=== PATIENT | male | born 1955 | race Caucasian/White ===

== ENCOUNTER 2023-05-20 09:07 | Outpatient (OUT) | payer OTHER, SELFPAY ==
--- NOTE | 2023-05-20 09:16 | US_ITS ---
The [address] [address] Patient Name: JENNY RIVERA MRN: [id number] date: 1955 Sex: M Assigned Patient Location: US Current Patient Location: US Accession/Order Number: [id number] Exam Date: 05/20/2023 09:20 Report Date: 05/20/2023 09:59 At the request of: NESSA GELLER Procedure: US abdominal aortic aneurysm EXAM: US abdominal aortic aneurysm HISTORY: . screening . COMPARISON: None. TECHNIQUE: Grayscale and color imaging was performed FINDINGS: Scanning of the proximal aorta measures 1.9 x 2.1 cm, mid aorta 1.8 x 2.2 cm, and the distal aorta 1.3 x 1.6 cm. Color-flow is noted throughout the aorta. Mild atherosclerotic changes of the abdominal aorta are noted. US/US abdominal aortic aneurysm IMPRESSION: 1. No aneurysmal dilatation of the aorta. 2. Atherosclerotic changes of the abdominal aorta. Electronically authenticated by: DANNA DUPONT Date: 05/20/2023 09:59
== END 2023-05-20 09:08 | disposition home or self-care (01) ==
LOC: US 09:09
DX: Z72.0 Tobacco use (principal)
CPT/HCPCS: 76775

== ENCOUNTER 2024-10-08 15:20 | Outpatient (OUT) | payer OTHER, SELFPAY ==
--- NOTE | 2024-10-08 | CT_ITS ---
The [address] [address] Patient Name: JENNY RIVERA MRN: [id number] date: 1955 Sex: M Assigned Patient Location: CT Current Patient Location: CT Accession/Order Number: [id number] Exam Date: 10/08/2024 16:02 Report Date: 10/08/2024 16:09 At the request of: NESSA GELLER Procedure: CT head/brain wo con CT BRAIN WITHOUT CONTRAST: CLINICAL HISTORY: Fall, stuttering, personality changes COMPARISON: None TECHNIQUE: Contiguous axial unenhanced images were obtained through the brain. This CT exam was performed using one no definite acute or more following dose reduction techniques: Automated exposure control, adjustment of the mA and/or kV according to patient size, or use of iterative reconstruction technique. FINDINGS: There is no evidence of midline shift, intra or extra-axial fluid collection, hemorrhage or CT evidence acute large vascular disease stroke. Mild central involutional changes and chronic small vessel disease. Evidence of right anterior frontal stroke extending to the subinsular region likely subacute in age with increased attenuation involving the cortices likely due laminar necrosis versus petechial blood products. Evidence of remote right parietal area of cortical and subcortical stroke noted as well. Intracranial ICA calcifications. Visualized intraorbital contents appear unremarkable. Visualized paranasal sinuses are clear. The surrounding soft tissues are normal. CT/CT head/brain wo con IMPRESSION: Evidence of right anterior frontal stroke extending into the right anterior subinsular region likely due to subacute stroke. Right posterior parietal stroke possibly subacute in age as well. Cortical density right frontal lobe likely due to laminar necrosis versus minimal petechial blood products. Otherwise negative acute bleed midline shift or mass effect. Otherwise mild chronic small vessel disease and Central involutional changes. Impression dictated by: Fabrice Jones M.D. 10/08/2024 4:09 PM Dictation Location: [place] [address] Electronically authenticated by: [id number] Y Date: 10/08/2024 16:09
--- OUTSIDE RECORDS SUMMARY | 2024-10-08 15:23 | XMS_ITS | CCD ---
Author Organization [facility] CliniSyga Care Team Providers Care University Relations Recruiter Name Role Phone DR PERICO MURPHY Primary Care Unavailable DUYEN, NESSA Admitting Unavailable DUYEN, NESSA Attending Unavailable DR JULIA GAN Consulting Unavailable DUYEN, NESSA Consulting Unavailable Shane, Getachew Unavailable Shane DO Getachew A Attending Provider [phone] Duyen, BUSINESS SERVICES TECH Nessa Primary Care Provider Duyen, BUSINESS SERVICES TECH Nessa Primary Care Provider Shane DO Getachew A Attending Provider [phone] Duyen, BUSINESS SERVICES TECH Nessa Primary Care Provider [phone] Shane DO Getachew A Attending Provider Duyen, BUSINESS SERVICES TECH Nessa Attending Provider [phone] Shane, Getachew A Admitting Unavailable Duyen, Nessa Primary Care Unavailable Shane, Getachew A Attending Unavailable Duyen, Nessa Primary Care Unavailable Shane, Getachew A Attending Unavailable Shane, Getachew A Admitting Unavailable Duyen, Nessa Primary Care Unavailable Shane, Getachew A Attending Unavailable Shane, Getachew A Admitting Unavailable Dueyn, Nessa Primary Care Unavailable Shane, Getachew A Attending Unavailable Shane, Getachew A Admitting Unavailable Duyen, Nessa Primary Care Unavailable Shane, Getachew A Attending Unavailable Shane, Getachew A Admitting Unavailable Duyen, Nessa Primary Care Unavailable Shane, Getachew A Attending Unavailable Shane, Getachew A Admitting Unavailable Duyen, Nessa Primary Care Unavailable Shane, Getachew A Attending Unavailable Shane, Getachew A Admitting Unavailable Duyen, Nessa Primary Care Unavailable Duyen, Nessa Attending Unavailable Duyen, Nessa Admitting Unavailable Shane, Getachew A Admitting Unavailable Shane, Getachew A Attending Unavailable Getachew Connolly Admitting Unavailable Nessa Geller Primary Care Unavailable Getachew Connolly Attending Unavailable Getachew Connolly Admitting Unavailable Nessa Geller Primary Care Unavailable Getachew Connolly Attending Unavailable Getachew Connolly Admitting Unavailable Nessa Geller Primary Care Unavailable Getachew Connolly Attending Unavailable FERDINAND ASCENCIO Admitting Unavailable FERDINAND ASCENCIO Attending Unavailable FERDINAND ASCENCIO Referring Unavailable NESSA GELLER Primary Care Physician Allergies Allergy Classification Reported Allergen(s) Allergy Type Date of Onset Reaction(s) Facility (9 sources) Amino Acids Drug Allergy 06-20-2022 Cough [facility] (1 source) Lisinopril Drug Allergy 12-06-2022 [facility] Repository Medications Current Medications Medication Drug Class(es) Dates Sig (Normalized) Sig (Original) acetaminophen 325 mg / oxyCODONE hydrochloride 5 mg oral tablet (3 sources) Opioid Agonist Start: 12-12-2022 take 1 tablet by mouth every four hours Oxycodone-Acetami nophen (Percocet) 5-325 mg tablet Active 1 TAB PO Q4H 20 December 12, 2022 Start: 07-05-2022 take 1 tablet by jami th every six hours oxyCODONE-Acetaminophen 5-325 MG 1 table t as needed Orally every 6 hrs for 7 days OSMAR # [id number] Jun, Active atenolol 50 mg oral tablet (8 sources) beta-Adrenergic Raiza Start: 06-19-2022 take 50 mg by mouth once daily in the morning Atenolol Active 50 MG PO Every morning June 19, 2022 12:00am Diclofenac (3 sources) Nonsteroidal Anti-inflammatory Drug Start: 10-02-2022 Voltaren 1 % as directed Externally Sep, Active Start: 10-02-2022 Voltaren 1 % a s directed Externally Sep, Active levothyroxine sodium 0.125 mg oral tablet (8 sources) l-Thyroxine Start: 06-19-2022 take 125 ug by mouth once daily in the morning Levothyroxine Active 125 MCG PO Every morning June 19, 2022 12:00am on a empty stomach 30-60min before breakfast losartan potassium 50 mg oral tablet (8 sources) Angiotensin 2 Receptor Raiza Start: 06-19-2022 take 50 mg by mouth once daily in the morning Losartan Active 50 MG PO Every morning June 19, 2022 12:00am meloxicam 15 mg oral tablet (4 sources) Nonsteroidal Anti-inflammatory Drug Start: 08-21-2022 take 1 tablet by mouth every twenty-four hours Meloxicam 15 MG 1 tablet Orally Once a day for 30 days July, Active omeprazole 20 mg delayed release oral tablet (8 sources) Proton Pump Inhibitor Start: 06-19-2022 take 20 mg by mouth once daily in the morning Omeprazole Active 20 MG PO Every morning June 19, 2022 12:00am pregabalin 150 mg oral capsule (8 sources) Start: 06-19-2022 take 150 mg by mouth once daily in the morning Pregabalin Active 150 MG PO Every morning June 19, 2022 12:00am Start: 06-19-2022 take 150 mg by mouth twice daily Pregabalin Active 150 MG PO Twice daily June 19, 2022 12:00am Vit C,P-Rm-Wshyd-Lutein-Zeax an (Preservision Areds-2) 250-90-40-1 mg Capsule (2 sources) Start: 12-06-2022 Vit C,J-Ue-Gvesd-Lutein-Zeax an (Preservision Areds-2) 250-90-40-1 mg Capsule Active 1 CAP PO Every morning December 06, 2022 12:00am Completed/Discontinued Medications Medication Drug Class(es) Dates Sig (Normalized) Sig (Original) calcium carbonate 1500 mg / cholecalciferol 0.01 mg oral tablet (8 sources) Vitamin D Start: 06-20-2022 End: 12-06-2022 take 2 tablets by mouth twice daily Calcium Carbonate-Vitamin D3 (Calcium 600 + D(3)) 600 mg-10 mcg (400 unit) tablet Discontinued 2 TAB PO Twice daily 240 60 June 20, 2022 12:00am December 06, 2022 8:22am Multivitamin (Multi-Vitamins) Tablet (8 sources) Start: 06-19-2022 End: 12-06-2022 take 1 tablet by mouth twice daily Multivitamin (Multi-Vitamins) Tablet Discontinued 1 TAB PO Twice daily June 19, 2022 12:00am December 06, 2022 8:22am Start: 06-19-2022 take 1 tablet by jami th twice daily Multivitamin (Multi-Vitamins) Tablet Active 1 TAB PO Twice daily June 19, 2022 12:00am oxyCODONE hydrochloride 5 mg oral capsule (8 sources) Opioid Agonist Start: 06-20-2022 End: 12-06-2022 take 5 mg by mouth every four to six hours Oxycodone Discontinued 5 MG PO EVERY 4-6 HOURS 30 7 June 20, 2022 December 06, 2022 8:22am Problems Problem Classification Problem Date Documented Date Episodic/Chronic E Codes: Fall (1 source) Unspecified fall, initial encounter; Translations: [UNSPECIFIED FALL INITIAL ENCOUNTER] Onset: 05-22-2022 Episodic Fracture of upper limb (11 sources) Displaced fracture of lateral end of left clavicle, initial encounter for closed fracture; Translations: [Displaced fracture of shaft of left clavicle, initial encounter for closed fracture] Onset: 05-22-2022 Episodic Other fractures (5 sources) Displaced fracture of shaft of left clavicle, subsequent encounter for fracture with routine healing Episodic Other injuries and conditions due to external causes (4 sources) Unspecified injury of left shoulder and upper arm, initial encounter; Translations: [UNS INJ LT SHOULDER UP ARM INITIAL] Onset: 05-17-2022 Episodic Residual codes; unclassified (5 sources) Other specified postprocedural states Episodic Substance-related disorders (8 sources) Smoker; Translations: [Nicotine dependence, unspecified, uncomplicated] Chronic Unclassified (1 source) Pain due to internal orthopedic prosthetic devices, implants and grafts, initial encounter; Translations: [Pain due to internal orthopedic prosthetic devices, implants and grafts, initial encounter] Onset: 12-12-2022 Unclassified (1 source) Encounter for screening for malignant neoplasm of respiratory organs; Translations: [Encounter for screening for malignant neoplasm of respiratory organs] Onset: 12-11-2022 Unclassified (1 source) Encounter for other preprocedural examination; Translations: [Encounter for other preprocedural examination] Onset: 12-06-2022 Unclassified (1 source) Displaced fracture of shaft of left clavicle, subsequent encounter for fracture with routine healing; Translations: [Displaced fracture of shaft of left clavicle, subsequent encounter for fracture with routine healing] Onset: 07-31-2022 Unclassified (1 source) Displaced fracture of shaft of left clavicle, initial encounter for closed fracture; Translations: [Displaced fracture of shaft of left clavicle, initial encounter for closed fracture] Onset: 06-20-2022 Unclassified (1 source) Encounter for preprocedural laboratory examination; Translations: [Encounter for preprocedural laboratory examination] Onset: 06-19-2022 Unclassified (1 source) Other specified disorders of bone, shoulder; Translations: [Other specified disorders of bone, shoulder] Onset: 06-19-2022 Results Test Name Value Interpretation Reference Range Facility CT Chest, Low Dose Screening on 12-10-2023 CT Chest, Low Dose Screening Exam Date/Time: 12/09/2023 08:07 EDT Reason for Exam: F17.210 Report IMPRESSION: LUNG RADS CATEGORY 1, NEGATIVE. CONTINUE ANNUAL SCREENING WITH LOW DOSE CT IN 12 MONTHS. CLINICAL HISTORY: F1 COMMENT: Unenhanced images were obtained per the low dose screening protocol. There are scattered thoracic aortic calcifications. There is borderline aneurysmal dilatation of the ascending thoracic aorta, measuring approximately 4 cm in diameter. There is tortuosity of the descending thoracic aorta. The heart is within normal limits in size. There are coronary artery calcifications. There is a small amount of pericardial fluid. No mediastinal nor hilar lymphadenopathy is noted. There are peripheral emphysematous changes involving both lungs. There are small areas of hyperlucency in both lungs, consistent with centrilobular emphysema. No pneumothorax is noted. There are minimal atelectatic or fibrotic densities in the lungs. No consolidated airspace opacification, no lung mass, nor pleural effusion is evident. There are old healed rib fractures laterally on the left. All CT scans at this facility use dose modulation, iterative reconstruction, and/or weight based dosing when appropriate to reduce radiation dose to as low as reasonably achievable. Low dose cancer screening should be considered if eligible, and not already enrolled in such a program. The presence of pulmonary emphysema on CT is an independent risk factor for lung cancer. Ordering Provider: , FINAL REPORT Dictated: 12/10/2023 1:02 pm David Martinez M.D. Signed (Electronic Signature): 12/10/2023 1:02 pm Signed by: David Martinez M.D. Transcribed by: RADHA Technologist: SB Normal [place] Amphetamine Screen Ql (U)Ord ered By: DANNA RITCHIE on 12-12-2022 Amphetamines Ql (U) Negative Negative [facility] Barbiturates [Presence] in U rine by Screen methodOrdered By: DANNA RITCHIE on 12-12-2022 Barbiturates Screen Ql (U) Negative Negative [facility] Benzodiazepines Screen Ql (U )Ordered By: DANNA RITCHIE on 12-12-2022 Benzodiazepines Ql (U) Negative Negative [facility] Benzoylecgonine [Presence] i n Urine by Screen methodOrdered By: DANNA RITCHIE on 12-12-2022 Benzoylecgonine Screen Ql (U) Negative Negative [facility] Cannabinoids [Presence] in U rine by Screen methodOrdered By: DANNA RITCHIE on 12-12-2022 Cannabinoids Screen Ql (U) Positive Negative [facility] Comment on above: These are unconfirme d results and should not be used for legal purposes. Drug Cut-Off Concentration: AMPH 1000 ng/mL YUIL 200 ng/mL MERISSA 200 ng/mL COCM 300 ng/mL OP 300 ng/mL PCP 25 ng/mL THC 20 ng/mL Drug Screen,Urineon 12-13-19 23 Amphetamine Screen,Urine Negative Normal Negative [facility] Comment on above: Performed By: #### U RDS ####[place] [id number] Barbiturate Screen,Urine Negative Normal Negative [facility] Comment on above: Performed By: #### U RDS ####[place] [address] [place] [id number] [facility] Benzodiazepines Screen,Urine Negative Normal Negative [facility] Comment on above: Performed By: #### U RDS ####[address] Cannabinoid Screen,Urine Positive High Negative [facility] Comment on above: Result Comment: Thes e are unconfirmed results and should not be used for legal purposes. Drug Cut-Off Concentration: AMPH 1000 ng/mL YULI 200 ng/mL MERISSA 200 ng/mL COCM 300 ng/mL OP 300 ng/mL PCP 25 ng/mL THC 20 ng/mL PERFORMED BY: [place] [address] PATHOLOGIST WET MACHINE OPERATOR RAFITA WHITEHEAD M.D. Performed By: #### U RDS ####[facility] [address] Cocaine Screen,Urine Negative Normal Negative [facility] Comment on above: Performed By: #### U RDS ####[facility] Opiate Screen,Urine Negative Normal Negative [facility] Comment on above: Performed By: #### U RDS ####[facility] Hwa[address] Phencyclidine Screen,Urine Negative Normal Negative [facility] Comment on above: Performed By: #### U RDS ####[address] Opiates [Presence] in Urine by Screen methodOrdered By: DANNA RITCHIE on 12-12-2022 Opiates Screen Ql (U) Negative Negative [facility] Phencyclidine Screen Ql (U)O rdered By: DANNA RITCHIE on 12-12-2022 Phencyclidine Ql (U) Negative Negative [facility] CT lung screeningon 12-12-19 CT lung screening [facility] [place] [address] CT Scan Report Signed Patient: Soto Aldana MR#: [id number] : 1955 Acct:[id number] Age/Sex: 67 / M ADM Date: 12/11/22 Loc: [facility] Room: Type: [facility] Attending Dr: Nessa Geller APRN, PROGRAMMING COORDINATOR-C Copies to: Nessa Geller APRN, CNP Ordering Provider: Nessa Geller APRN, CNP Date of Service: 12/11/22 CT/CT lung screening: SMOKER CT Chest lung screening without contrast TECHNIQUE: Axial imaging with 2-D reconstruction. The CT exam was performed using one or more the following dose reduction techniques: Automated exposure control, adjustment of the MA and/or Kv according to patient size, or use of the iterative reconstruction technique. History: Current smoker. 1 year follow-up assessment COMPARISON: Prior imaging available THYROID: Unremarkable TRACHEA AND BRONCHI: Patent ESOPHAGUS: Unremarkable. HEART: Within normal limits PERICARDIAL EFFUSION: None CORONARY ARTERY CALCIFICATION: None MEDIASTINUM: No adenopathy. No pneumoperitoneum. No mediastinal hematoma. PULMONARY BERLIN: No hilar mass or adenopathy is seen. THORACIC AORTA Unremarkable LUNG NODULE 2 mm the medial paravertebral left lower lobe lung nodule. Image #153. 3 mm left lower lobe lung nodule. Image #159 LUNGS: Emphysematous changes. Mild apical bullous changes. PLEURAL EFFUSION: None PNEUMOTHORAX: No pneumothorax seen. CHEST WALL: No abnormality AXILLA:Unremarkable BONY STRUCTURES Intact UPPER ABDOMEN: Images of the upper abdomen are noncontributory. CT/CT lung screening IMPRESSION: Tiny left lower lobe lung nodules. FINAL ASSESSMENT: Benign Lung-RADS Version 1.0 Assessment Category: 2 REMARKS: Continued annual screening with LDCT in 12 months is recommended. Impression dictated by: Jeevan Gurrola M.D.12/11/2022 4:14 PM Dictation Location: [place] [address] Transcribed By: [facility] 12/11/22 1614 Dictated By: Jeevan Gurrola DO 12/11/22 1609 Signed By: 12/11/22 1614 Normal [facility] Basic Metabolic Panelon 11-22 Anion gap [Moles/Vol] 13.4 mmol/L Normal 6.0-15.0 [facility] Comment on above: Performed By: #### C SHAISTA, PREMA ####[facility] [place] [id number] [facility] Calcium [Mass/Vol] 9.2 mg/dL Normal 8.6-10.3 [facility] Comment on above: Result Comment: PERF ORMED BY: [facility] [address] [place] [address] PATHOLOGIST WET MACHINE OPERATOR RAFITA WHITEHEAD M.D. Performed By: #### C SHAISTA, BMP ####[facility] [place] [address] [facility] Chloride [Moles/Vol] 108 mmol/L High 98-107 [facility] Comment on above: Performed By: #### C BC, BMP ####[facility] [place] [address] [place] CO2 [Moles/Vol] 28.7 mmol/L Normal 21.0-31.0 [facility] Comment on above: Performed By: #### C BC, BMP ####[facility] [place] [address] [facility] Creatinine [Mass/Vol] 1.15 mg/dL Normal 0.70-1.30 [facility] Comment on above: Performed By: #### C BC, BMP ####[place] [address] [place] [address] [place] GFR/1.73 sq M.predicted MDRD (S/P/Bld) [Vol rate/Area] mL/min/{1.73_m2} Normal [facility] Comment on above: Performed By: #### C BC, BMP ####[place] [address] [place] [address] [facility] Glucose [Mass/Vol] 70 mg/dL Normal 70-100 [facility] Comment on above: Result Comment: [place] Glucose Reference Range is dependent on time and content of last meal. Glucose of more than 200 mg/dL in a nonstressed, ambulatory subject supports the diagnosis of Diabetes Mellitus. ADA recommended reference range Performed By: #### C BC, BMP ####[place] [address] [place] [address] [place] Potassium [Moles/Vol] 5.1 mmol/L Normal 3.5-5.1 [facility] Comment on above: Performed By: #### C BC, BMP ####[facility] [place] [address] [place] Sodium [Moles/Vol] 145 mmol/L Normal 136-145 [facility] Comment on above: Performed By: #### C BC, BMP ####[facility] Ofc[address] [place] [address] [facility] Urea nitrogen [Mass/Vol] 18 mg/dL Normal 7-25 [facility] Comment on above: Performed By: #### C BC, BMP ####[facility] Ntj[address] Basophils Auto (Bld) [#/Vol] Ordered By: Getachew Connolly on 12-06-2022 Basophils (Bld) [#/Vol] 0.1 10*3/uL 0.0-0.2 [facility] Basophils/100 WBC Auto (Bld) Ordered By: Getachew Connolly on 12-06-2022 Basophils/100 WBC (Bld) 0.9 % . F [facility] Calcium [Mass/volume] in Ser um or PlasmaOrdered By: Getachew Connolly on 12-06-2022 Calcium [Mass/Vol] 9.2 mg/dL 8.6-10.3 [facility] Carbon dioxide, total [Moles /volume] in Serum or PlasmaOrdered By: Getachew Connolly on 12-06-2022 CO2 [Moles/Vol] 28.7 mmol/L 21.0-31.0 [facility] Chloride [Moles/volume] in S rigoberto or PlasmaOrdered By: Getachew Connolly on 12-06-2022 Chloride [Moles/Vol] 108 mmol/L 98-107 [facility] Complete Blood Count Auto Di ffon 12-06-2022 Basophils (Bld) [#/Vol] 0.1 10*3/uL Normal 0.0-0.2 [facility] Comment on above: Result Comment: PERF ORMED BY: [facility] [address] [place] [address] PATHOLOGIST WET MACHINE OPERATOR RAFITA WHITEHEAD M.D. Performed By: #### C SHAISTA, BMP #### [facility] [address] [place] [address] [place] Basophils/100 WBC (Bld) 0.9 % Normal . F [facility] Comment on above: Performed By: #### C SHAISTA, BMP #### [facility] [address] Eosinophils (Bld) [#/Vol] 0.4 10*3/uL Normal 0.0-0.45 [facility] Comment on above: Performed By: #### C SHAISTA, PREMA #### [facility] [address] Eosinophils/100 WBC (Bld) 5.3 % Normal . [facility] Comment on above: Performed By: #### C BC, BMP #### [facility] [address] Erythrocyte distribution width (RBC) [Ratio] 14.0 % Normal 12.0-14.8 [facility] Comment on above: Performed By: #### C BC, BMP #### [address] Hematocrit (Bld) [Volume fraction] 43.1 % Normal 38.8-50.0 [facility] Comment on above: Performed By: #### C BC, BMP #### [address] Hemoglobin (Bld) [Mass/Vol] 14.3 g/dL Normal 13.0-17.0 [facility] Comment on above: Performed By: #### C BC, BMP #### [address] Lymphocytes (Bld) [#/Vol] 2.4 10*3/uL Normal 1.00-4.8 [facility] Comment on above: Performed By: #### C BC, BMP #### [address] Lymphocytes/100 WBC (Bld) 35.8 % Normal . [facility] Comment on above: Performed By: #### C BC, BMP #### [place] [address] [place] MCH (RBC) [Entitic mass] 33.7 pg Normal 27.5-35.2 [facility] Comment on above: Performed By: #### C BC, BMP #### [address] MCV (RBC) [Entitic vol] 101.3 fL High 83.5-101 F [facility] Comment on above: Performed By: #### C BC, BMP #### [address] [place] [address] [place] Mean Corpuscular HGB Conc 33.3 g/dL Normal 32.5-35.6 [facility] Comment on above: Performed By: #### C BC, BMP #### [facility] [address] [place] [address] [place] Monocytes (Bld) [#/Vol] 0.7 10*3/uL Normal 0.0-0.8 [facility] Comment on above: Performed By: #### C BC, BMP #### [facility] [address] [place] [address] [place] Monocytes/100 WBC (Bld) 9.8 % Normal . [facility] Comment on above: Performed By: #### C BC, BMP #### [address] Neutrophils (Bld) [#/Vol] 3.3 10*3/uL Normal 1.8-7.7 [facility] Comment on above: Performed By: #### C BC, BMP #### [place] [address] [place] Neutrophils/100 WBC (Bld) 48.2 % Normal . [facility] Comment on above: Performed By: #### C BC, BMP #### [address] NRBC% 0.1 /100{WBC} Normal 0-0.5 [facility] Comment on above: Performed By: #### C BC, BMP #### [facility] [address] [place] [address] [place] Platelet mean volume (Bld) [Entitic vol] 7.3 fL Normal 6.6-10.1 [facility] Comment on above: Performed By: #### C BC, BMP #### [facility] [address] [place] [address] [place] Platelets (Bld) [#/Vol] 294 10*3/uL Normal 150-450 [facility] Comment on above: Performed By: #### C BC, BMP #### [facility] [address] [place] [address] [place] RBC (Bld) [#/Vol] 4.26 10*6/uL Normal 3.90-5.60 [facility] Comment on above: Performed By: #### C SHAISTA, BMP #### [facility] [address] WBC (Bld) [#/Vol] 6.8 10*3/uL Normal 4.1-10.5 [facility] Comment on above: Performed By: #### C SHAISTA, BMP #### [facility] [address] Creatinine [Mass/volume] in Serum or PlasmaOrdered By: Getachew Connolly on 12-06-2022 Creatinine [Mass/Vol] 1.15 mg/dL 0.70-1.30 [facility] Eosinophils Auto (Bld) [#/Vo l]Ordered By: Getachew Connolly on 12-06-2022 Eosinophils (Bld) [#/Vol] 0.4 10*3/uL 0.0-0.45 [facility] Eosinophils/100 WBC Auto (Bl d)Ordered By: Getachew Connolly on 12-06-2022 Eosinophils/100 WBC (Bld) 5.3 % . [facility] Erythrocyte distribution wid th Auto (RBC) [Ratio]Ordered By: Getachew Connolly on 12-06-2022 Erythrocyte distribution width (RBC) [Ratio] 14.0 % 12.0-14.8 [facility] Glucose [Mass/volume] in Ser um or PlasmaOrdered By: Getachew Connolly on 12-06-2022 Glucose [Mass/Vol] 70 mg/dL 70-100 [facility] Comment on above: ADA recommended refe rence rangeRandom Glucose Reference Range is dependent on time and content of last meal. Glucose of more than 200 mg/dL in a nonstressed, ambulatory subject supports the diagnosis of Diabetes Mellitus. Hematocrit Auto (Bld) [Volum e fraction]Ordered By: Getachew Connolly on 12-06-2022 Hematocrit (Bld) [Volume fraction] 43.1 % 38.8-50.0 [facility] Hemoglobin [Mass/volume] in BloodOrdered By: Getachew Connolly on 12-06-2022 Hemoglobin (Bld) [Mass/Vol] 14.3 g/dL 13.0-17.0 [facility] Leukocytes [#/volume] correc franky for nucleated erythrocytes in Blood by Automated counOrdered By: Getachew Connolly on 12-06-2022 WBC corrected for nucl RBC Auto (Bld) [#/Vol] 6.8 10*3/uL 4.1-10.5 [facility] Lymphocytes Auto (Bld) [#/Vo l]Ordered By: Getachew Connolly on 12-06-2022 Lymphocytes (Bld) [#/Vol] 2.4 10*3/uL 1.00-4.8 [facility] Lymphocytes/100 WBC Auto (Bl d)Ordered By: Getachew Connolly on 12-06-2022 Lymphocytes/100 WBC (Bld) 35.8 % . [facility]CH Auto (RBC) [Entitic mass ]Ordered By: Getachew Connolly on 12-06-2022 MCH (RBC) [Entitic mass] 33.7 pg 27.5-35.2 [facility] MCHC Auto (RBC) [Mass/Vol]Or dered By: Getachew Connolly on 12-06-2022 MCHC (RBC) [Mass/Vol] 33.3 g/dL 32.5-35.6 [facility] MCV Auto (RBC) [Entitic vol] Ordered By: Getachew Connolly on 12-06-2022 MCV (RBC) [Entitic vol] 101.3 fL 83.5-101 F [facility] Monocytes Auto (Bld) [#/Vol] Ordered By: Getachew Connolly on 12-06-2022 Monocytes (Bld) [#/Vol] 0.7 10*3/uL 0.0-0.8 [facility] Monocytes/100 WBC Auto (Bld) Ordered By: Getachew Connolly on 12-06-2022 Monocytes/100 WBC (Bld) 9.8 % . F [facility] Neutrophils Auto (Bld) [#/Vo l]Ordered By: Getachew Connolly on 12-06-2022 Neutrophils (Bld) [#/Vol] 3.3 10*3/uL 1.8-7.7 [facility] Neutrophils/100 WBC Auto (Bl d)Ordered By: Getachew Connolly on 12-06-2022 Neutrophils/100 WBC (Bld) 48.2 % . [facility] No Panel InformationOrdered By: Getachew Connolly on 12-06-2022 Estimated GFR (CKD-EPI) > 60.0 mL/Min [facility] Creatinine Clearance (Chem N/A [facility] Nucleated erythrocytes [Pres ence] in Blood by Automated countOrdered By: Getachew Connolly on 12-06-2022 Nucleated RBC Auto Ql (Bld) 0.1 /100{WBC} 0-0.5 [facility] Platelet mean volume Auto (B ld) [Entitic vol]Ordered By: Getachew Connolly on 12-06-2022 Platelet mean volume (Bld) [Entitic vol] 7.3 fL 6.6-10.1 [facility] Platelets Auto (Bld) [#/Vol] Ordered By: Getachew Connolly on 12-06-2022 Platelets (Bld) [#/Vol] 294 10*3/uL 150-450 [facility] Potassium [Moles/volume] in Serum or PlasmaOrdered By: Getachew Connolly on 12-06-2022 Potassium [Moles/Vol] 5.1 mmol/L 3.5-5.1 [facility] RBC Auto (Bld) [#/Vol]Ordere d By: Getachew Connolly on 12-06-2022 RBC (Bld) [#/Vol] 4.26 10*6/uL 3.90-5.60 [facility] Serum or plasma anion gap de terminationOrdered By: Getachew Connolly on 12-06-2022 Anion gap [Moles/Vol] 13.4 mmol/L 6.0-15.0 [facility] Sodium [Moles/volume] in Ser um or PlasmaOrdered By: Getachew Connolly on 12-06-2022 Sodium [Moles/Vol] 145 mmol/L 136-145 [facility] Urea nitrogen [Mass/volume] in Serum or PlasmaOrdered By: Getachew Connolly on 12-06-2022 Urea nitrogen [Mass/Vol] 18 mg/dL 7-25 [facility] WBC Auto (Bld) [#/Vol]Ordere d By: Getachew Connolly on 12-06-2022 WBC (Bld) [#/Vol] 6.8 10*3/uL 4.1-10.5 [facility] XR clavicle LT*on 12-04-2022 XR clavicle LT* [facility] Main [address] [address] XRay Report Signed Patient: Soto Aldana MR#: [id number] 986 : 1955 Acct:[id number] Age/Sex: 67 / M ADM Date: 12/04/22 Loc: [facility] Room: Type: [facility] Attending Dr: Getachew Connolly DO Copies to: Getachew Connolly DO Ordering Provider: Getachew Connolly DO Date of Service: 12/04/22 XR/XR clavicle LT*: Closed displaced fracture of shaft of left clavicle with rou LEFT CLAVICLE - 2 views CLINICAL HISTORY: Follow-up clavicle fracture COMPARISON: 10/02/2022 AP views with neutral and upward projection were obtained. There is redemonstration of a plate and screws along the superior aspect of the distal clavicle. One of the screws does not traverse the plate. The underlying fracture is unchanged in alignment. No new fracture or dislocation is identified. The soft tissues are within normal limits. XR/XR clavicle LT* IMPRESSION: STABLE DISTAL CLAVICLE FRACTURE Impression dictated by: Rita Klein M.D.12/04/2022 3:24 PM Dictation Location: [place] [address] Transcribed By: [facility] 12/04/22 1524 Dictated By: Rita Klein MD 12/04/22 1522 Signed By: 12/04/[address] [facility] XR clavicle LT* [facility] [employer] Other XR clavicle LT* [facility] Main [facility] [employer] Other XR clavicle LT* [address] [place] [address] [employer] Other XR clavicle LT* [place] [address] [facility] [employer] Other XR clavicle LT* XRay Report [place] [facility] [employer] Other XR clavicle LT* Signed [employer] Other XR clavicle LT* Patient: Soto Aldana MR#: [id number] [employer] Other XR clavicle LT* 986 [employer] Other XR clavicle LT* : 1955 Acct:[id number] [employer] Other XR clavicle LT* Age/Sex: 67 / M ADM Date: 12/04/22 [employer] Other XR clavicle LT* Loc: [facility] Room: Type: [facility] [employer] Other XR clavicle LT* Attending Dr: Getachew Connolly DO [employer] Other XR clavicle LT* Copies to: Getachew Connolly, [employer] Other XR clavicle LT* Ordering Provider: Getachew Connolly DO [employer] Other XR clavicle LT* Date of Service: 12/04/22 [employer] Other XR clavicle LT* XR/XR clavicle LT*: Closed displaced fracture of shaft of left clavicle [employer] Other XR clavicle LT* with rou [employer] Other XR clavicle LT* LEFT CLAVICLE - 2 views [employer] Other XR clavicle LT* CLINICAL HISTORY: Follow-up clavicle fracture [employer] Other XR clavicle LT* COMPARISON: 10/02/2022 [employer] Other XR clavicle LT* AP views with neutral and upward projection were obtained. There is redemonstration of a plate and [employer] Other XR clavicle LT* screws along the superior aspect of the distal clavicle. One of the screws does not traverse the [employer] Other XR clavicle LT* plate. The underlying fracture is unchanged in alignment. No new fracture or dislocation is [employer] Other XR clavicle LT* identified. The soft tissues are within normal limits. [employer] Other XR clavicle LT* XR/XR clavicle LT* [employer] Other XR clavicle LT* IMPRESSION: [employer] Other XR clavicle LT* STABLE DISTAL CLAVICLE FRACTURE [place] [employer] Other XR clavicle LT* Impression dictated by: Rita Klein M.D.12/04/2022 3:24 PM [employer] Other XR clavicle LT* Dictation Location: [place] [address] [employer] Other XR clavicle LT* Transcribed By: CHIP 12/04/22 [facility] [employer] Other XR clavicle LT* Dictated By: Rita Klein MD 12/04/22 [facility] [employer] Other XR clavicle LT* Signed By: [employer] [facility] [employer] Other XR clavicle LT* 12/04/22 [facility] [employer] Other XR clavicle LT*on 10-02-2022 XR clavicle LT* [facility] Main [place] [address] [place] [address] XRay Report Signed Patient: Soto Aldana MR#: [id number] 986 : 1955 Acct:[id number] Age/Sex: 66 / M ADM Date: 10/02/22 Loc: [facility] Room: Type: [facility] CLI Attending Dr: Getachew Connolly DO Copies to: Getachew Connolly DO Ordering Provider: Getachew Connolly DO Date of Service: 10/02/22 XR/XR clavicle LT*: Closed displaced fracture of shaft of left clavicle with rou 2 views LEFT clavicle plain film COMPARISON: 08/21/22 HISTORY: ORIF LEFT clavicle ACUTE FINDINGS: Stable bony alignment. DEGENERATIVE CHANGE: Unremarkable SOFT TISSUE FINDINGS: Unremarkable POSTOP CHANGES: Stable hardware with fracture of single screw. BONE MINERALIZATION: Adequate XR/XR clavicle LT* IMPRESSION: Stable findings Impression dictated by: Jeevan Gurrola M.D.10/02/2022 2:35 PM Dictation Location: [place] [address] Transcribed By: [facility] 10/02/22 1435 Dictated By: Jeevan Gurrola DO 10/02/22 1434 Signed By: 10/02/[address] [facility] XR clavicle LT* [facility] [employer] Other XR clavicle LT* [facility] Main [facility] [employer] Other XR clavicle LT* [address] [place] [address] [employer] Other XR clavicle LT* [place] [id number] [facility] [employer] Other XR clavicle LT* XRay Report [employer] Other XR clavicle LT* Signed [employer] Other XR clavicle LT* Patient: Soto Aldana MR#: [id number] [place] [employer] Other XR clavicle LT* 986 [employer] Other XR clavicle LT* : 1955 Acct:[id number] [employer] Other XR clavicle LT* Age/Sex: 66 / M ADM Date: 10/02/22 [employer] Other XR clavicle LT* Loc: [facility] Room: Type: [facility] [employer] Other XR clavicle LT* Attending Dr: Getachew Connolly DO [employer] Other XR clavicle LT* Copies to: Getachew Connolly, DO [employer] Other XR clavicle LT* Ordering Provider: Getachew Connolly, [employer] Other XR clavicle LT* Date of Service: 10/02/22 [employer] Other XR clavicle LT* XR/XR clavicle LT*: Closed displaced fracture of shaft of left clavicle [employer] Other XR clavicle LT* with rou [employer] [facility] [employer] Other XR clavicle LT* 2 views LEFT clavicle plain film [employer] Other XR clavicle LT* COMPARISON: 08/21/22 [employer] Other XR clavicle LT* HISTORY: ORIF LEFT clavicle [employer] Other XR clavicle LT* ACUTE FINDINGS: Stable bony alignment. [employer] Other XR clavicle LT* DEGENERATIVE CHANGE: Unremarkable [employer] Other XR clavicle LT* SOFT TISSUE FINDINGS: Unremarkable [employer] Other XR clavicle LT* POSTOP CHANGES: Stable hardware with fracture of single screw. [employer] Other XR clavicle LT* BONE MINERALIZATION: Adequate [employer] Other XR clavicle LT* XR/XR clavicle LT* [employer] Other XR clavicle LT* IMPRESSION: Stable findings [employer] Other XR clavicle LT* Impression dictated by: Jeevan Gurrola M.D.10/02/2022 2:35 PM [employer] Other XR clavicle LT* Dictation Location: [place] [address] [employer] Other XR clavicle LT* Transcribed By: CHIP 10/02/22 1435 [employer] Other XR clavicle LT* Dictated By: Jeevan Gurrola DO 10/02/22 1434 [employer] Other XR clavicle LT* Signed By: [facility] [employer] Other XR clavicle LT* 10/02/22 1435 [employer] Other XR clavicle LT*on 08-21-2022 XR clavicle LT* [facility] [place] [address] XRay Report Signed Patient: Soto Aldana MR#: [id number] 986 : 1955 Acct:[id number] Age/Sex: 66 / M ADM Date: 08/21/22 Loc: [facility] Room: Type: [facility] Attending Dr: Getachew Connolly DO Copies to: Getachew Connolly DO Ordering Provider: Getachew Connolly DO Date of Service: 08/21/22 XR/XR clavicle LT*: Closed displaced fracture of shaft of left clavicle with rou 2 views left clavicle COMPARISON: 07/31/2022 HISTORY: Status post ORIF of left clavicle with continued pain ACUTE FINDINGS: Stable alignment of fracture fragments. Interval healing DEGENERATIVE CHANGE: Unremarkable SOFT TISSUE FINDINGS: Unremarkable JOINT EFFUSION: None POSTOP CHANGES: Redemonstration of superior plate along the distal aspect of the clavicle. Loosening of the mid screw BONE MINERALIZATION: Adequate XR/XR clavicle LT* IMPRESSION: Healing fractures. Similar loosening of mid screw. Otherwise hardware unchanged. Impression dictated by: Jeevan Gurrola M.D.08/21/2022 3:00 PM Dictation Location: [facility] Transcribed By: CHIP 08/21/22 1500 Dictated By: Jeevan Gurrola DO 08/21/22 1456 Signed By: 08/21/22 1500 Normal [facility] XR clavicle LT* [facility] [employer] Other XR clavicle LT* [facility] Main [place] [employer] Other XR clavicle LT* [address] [facility] No [facility] [employer] Other XR clavicle LT* [place] [address] [facility] [employer] Other XR clavicle LT* XRay Report [facility] [employer] Other XR clavicle LT* Signed [facility] [employer] Other XR clavicle LT* Patient: Soto Aldana MR#: [id number] [place] [employer] Other XR clavicle LT* [address] [facility] [employer] Other XR clavicle LT* : 1955 Acct:[id number] [place] [employer] Other XR clavicle LT* Age/Sex: 66 / M ADM Date: 08/21/22 [place] [employer] Other XR clavicle LT* [facility] Room: Type: REG CLI [place] [employer] Other XR clavicle LT* Attending Dr: Getachew Connolly DO [place] [employer] Other XR clavicle LT* Copies to: Getachew Connolly DO [employer] Other XR clavicle LT* Ordering Provider: Getachew Connolly DO [employer] Other XR clavicle LT* Date of Service: 08/21/22 [employer] Other XR clavicle LT* XR/XR clavicle LT*: Closed displaced fracture of shaft of left clavicle [employer] Other XR clavicle LT* with rou [employer] Other XR clavicle LT* 2 views left clavicle [employer] Other XR clavicle LT* COMPARISON: 07/31/2022 [employer] Other XR clavicle LT* HISTORY: Status post ORIF of left clavicle with continued pain [employer] Other XR clavicle LT* ACUTE FINDINGS: Stable alignment of fracture fragments. Interval healing [employer] Other XR clavicle LT* DEGENERATIVE CHANGE: Unremarkable [employer] Other XR clavicle LT* SOFT TISSUE FINDINGS: Unremarkable [employer] Other XR clavicle LT* JOINT EFFUSION: None [employer] Other XR clavicle LT* POSTOP CHANGES: Redemonstration of superior plate along the distal aspect of the clavicle. Loosening [employer] Other XR clavicle LT* of the mid screw [employer] Other XR clavicle LT* BONE MINERALIZATION: Adequate [employer] Other XR clavicle LT* XR/XR clavicle LT* [employer] Other XR clavicle LT* IMPRESSION: Healing fractures. Similar loosening of mid screw. Otherwise hardware unchanged. [employer] Other XR clavicle LT* Impression dictated by: Jeevan Gurrola M.D.08/21/2022 3:00 PM [employer] Other XR clavicle LT* Dictation Location: [place] [address] [employer] Other XR clavicle LT* Transcribed By: PWS 08/21/22 1500 [employer] Other XR clavicle LT* Dictated By: Jeevan Gurrola DO 08/21/22 1456 [employer] Other XR clavicle LT* Signed By: [employer] Other XR clavicle LT* 08/21/[address] shoulder LT wo conon 05- CT shoulder LT wo con [facility] Main [address] [address] [address] Scan Report Signed Patient: Soto Aldana MR#: [id number] 986 : 1955 Acct:[id number] Age/Sex: 66 / M ADM Date: 08/08/22 Loc: [facility] Room: Type: [facility] CLI Attending Dr: Getachew Connolly DO Copies to: Getachew Connolly DO Ordering Provider: Getachew Connolly DO Date of Service: 08/08/22 CT/CT shoulder LT wo con: surgical planning due to broken hardware;Closed displaced fr CT left shoulder WITHOUT CONTRAST WITH 3D RECONSTRUCTIONS: CLINICAL HISTORY: Broken hardware. ORIF left clavicle pain. COMPARISON: Left clavicle series 07/31/2022 TECHNIQUE: Spiral axial unenhanced images were obtained through the left shoulder. Sagittal, coronal and 3D volume-rendered reconstructions were also reviewed. This CT exam was performed using one or more following dose reduction techniques: Automated exposure control, adjustment of the mA and/or kV according to patient size, or use of iterative reconstruction technique. FINDINGS: Once again demonstrated is hardware involving the patient's distal left clavicle with fracture screw present. Configuration is similar to the prior plain film examination. Callus formation/heterotop ic ossification is seen surrounding the hardware suggestive of healing response. No definite fracture line is seen. No new fractures are seen. AC joint images mild degenerative change. Glenohumeral joint demonstrate mild degenerative change. Scapula appears intact. Remote left-sided rib fractures are seen. Soft tissues surrounding the left shoulder demonstrate no acute findings. No axillary lymphadenopathy. Visualized left lung parenchyma demonstrates emphysematous change. CT/CT shoulder LT wo con IMPRESSION: INTERNAL FIXATION OF THE PATIENT'S LEFT CLAVICULAR FRACTURE WITH FRACTURED SCREW SIMILAR IN CONFIGURATION TO THE PRIOR PLAIN FILM EXAMINATION. Impression dictated by: Francisco Piña Jr., D.OPrincess08/08/2022 4:43 PM Dictation Location: [place] [address] Transcribed By: [facility] 08/08/22 1643 Dictated By: Francisco Piña Jr, DO 08/08/22 1638 Signed By: 08/08/[address] [facility] XR clavicle LT*on 07-31-2022 XR clavicle LT* [facility] [address] [address] XRay Report Signed Patient: Soto Aldana MR#: [id number] 986 : 1955 Acct:[id number] Age/Sex: 66 / M ADM Date: 07/31/22 Loc: [facility] Room: Type: [facility] Attending Dr: Getachew Connolly DO Copies to: Getachew Connolly DO Ordering Provider: Getachew Connolly DO Date of Service: 07/31/22 XR/XR clavicle LT*: Closed displaced fracture of shaft of left clavicle with rou LEFT CLAVICLE - 2 views CLINICAL HISTORY: Follow-up clavicle fracture COMPARISON: 07/08/2022 AP views with neutral and upward projection were obtained. There is redemonstration of a superior plate along the distal aspect of the clavicle. The distal clavicle fracture shows no change in alignment. No new fracture or dislocation is identified. The soft tissues are within normal limits. XR/XR clavicle LT* IMPRESSION: STABLE DISTAL CLAVICLE FRACTURE Impression dictated by: Rita Klein M.D.07/31/2022 2:51 PM Dictation Location: [place] [address] Transcribed By: [facility] 07/31/22 1451 Dictated By: Rita Klein MD 07/31/22 1449 Signed By: 07/31/[address] [facility] XR clavicle LT* [facility] [employer] Other XR clavicle LT* [facility] [employer] Other XR clavicle LT* [address] [facility] [employer] Other XR clavicle LT* [place] [address] [facility] [employer] Other XR clavicle LT* XRay Report [place] [employer] Other XR clavicle LT* Signed [employer] Other XR clavicle LT* Patient: Soto Aldana MR#: [id number] [place] [employer] Other XR clavicle LT* 986 [employer] Other XR clavicle LT* : 1955 Acct:[id number] [employer] Other XR clavicle LT* Age/Sex: 66 / M ADM Date: 07/31/22 [employer] Other XR clavicle LT* Loc: [facility] Room: Type: [facility] [employer] Other XR clavicle LT* Attending Dr: Getachew Connolly DO [employer] Other XR clavicle LT* Copies to: Getachew Connolly DO [employer] Other XR clavicle LT* Ordering Provider: Getachew Connolly DO [employer] Other XR clavicle LT* Date of Service: 07/31/22 [employer] Other XR clavicle LT* XR/XR clavicle LT*: Closed displaced fracture of shaft of left clavicle [employer] Other XR clavicle LT* with rou [employer] Other XR clavicle LT* LEFT CLAVICLE - 2 views [employer] Other XR clavicle LT* CLINICAL HISTORY: Follow-up clavicle fracture [employer] Other XR clavicle LT* COMPARISON: 07/08/2022 [employer] Other XR clavicle LT* AP views with neutral and upward projection were obtained. There is redemonstration of a superior [employer] Other XR clavicle LT* plate along the distal aspect of the clavicle. The distal clavicle fracture shows no change in [employer] Other XR clavicle LT* alignment. No new fracture or dislocation is identified. The soft tissues are within normal limits. [employer] Other XR clavicle LT* XR/XR clavicle LT* [employer] Other XR clavicle LT* IMPRESSION: [facility] [employer] Other XR clavicle LT* STABLE DISTAL CLAVICLE FRACTURE [facility] [employer] Other XR clavicle LT* Impression dictated by: Rita Klein M.D.07/31/2022 2:51 PM [employer] Other XR clavicle LT* Dictation Location: [facility] [place] [employer] Other XR clavicle LT* Transcribed By: PWS 07/31/22 [facility] [employer] Other XR clavicle LT* Dictated By: Rita Klein MD 07/31/22 [facility] [employer] Other XR clavicle LT* Signed By: [facility] [employer] Other XR clavicle LT* 07/31/22 [facility] [employer] Other XR clavicle LT*on 07-08-2022 XR clavicle LT* [facility] Main [place] [address] [place] [address] XRay Report Signed Patient: Soto Aldana MR#: [id number] 986 : 1955 Acct:[id number] Age/Sex: 66 / M ADM Date: 07/08/22 Loc: [facility] Room: Type: [facility] Attending Dr: Getachew Connolly DO Copies to: Getachew Connolly DO Ordering Provider: Getachew Connolly DO Date of Service: 07/08/22 XR/XR clavicle LT*: Closed displaced fracture of shaft of left clavicle with rou XR clavicle LT* 07/08/2022 8:12 AM SIGNS AND SYMPTOMS: Status post open reduction internal fixation of left clavicle fracture, follow- up PROTOCOL: Frontal and axial views of the left shoulder COMPARISON: 06/20/2022 FINDINGS: There is redemonstration of plate and screw fixation in the lateral aspect of the left clavicle with a nearly completely healed fracture. No hardware complication or change in alignment. Degenerative changes are noted in the left shoulder similar to the prior exam. The visualized left hemithorax is otherwise intact. XR/XR clavicle LT* IMPRESSION: Status post hardware fixation of the lateral aspect of the left clavicle with continued/near complete healing. No hardware complication. Impression dictated by: Shayne Overton M.D.07/08/2022 12:09 PM Dictation Location: [facility] Transcribed By: CHIP 07/08/22 1209 Dictated By: Shayne Overton II, MD 07/08/22 1208 Signed By: 07/08/22 1209 Normal [facility] XR clavicle LT*on 06-20-2022 XR clavicle LT* [facility] [place] [address] XRay Report Signed Patient: Soto Aldana MR#: [id number] 986 : 1955 Acct:[id number] Age/Sex: 66 / M ADM Date: 06/20/22 Loc: [place] Room: Type: [facility] Attending Dr: Getachew Connolly DO Copies to: Getachew Connolly DO Ordering Provider: Getachew Connolly DO Date of Service: 06/20/22 XR/XR clavicle LT*: post op LEFT CLAVICLE - 2 views CLINICAL HISTORY: Follow-up clavicle fracture COMPARISON: 06/19/2022 and 06/20/2022 (intraoperative) AP views with neutral and upward projection were obtained. There is redemonstration of a superior plate and screws along the distal clavicle. This is similar to the intraoperative exam and there is no change in alignment of fracture fragments since that study. No new fracture or dislocation is identified. The soft tissues are within normal limits. XR/XR clavicle LT* IMPRESSION: STABLE DISTAL CLAVICLE FRACTURE, STATUS POST FIXATION. Impression dictated by: Rita Klein M.D.06/20/2022 1:14 PM Dictation Location: [facility] Transcribed By: CHIP 06/20/22 1314 Dictated By: Rita Klein MD 06/20/22 1311 Signed By: 06/20/[address] [facility] XR clavicle LT* [facility] [place] [address] XRay Report Signed Patient: Soto Aldana MR#: [id number] 986 : 1955 Acct:[id number] Age/Sex: 66 / M ADM Date: 06/20/22 Loc: [place] Room: Type: [facility] Attending Dr: Getachew Connolly DO Copies to: Getachew Connolly DO Ordering Provider: Getachew Connolly DO Date of Service: 06/20/22 XR/XR clavicle LT*: ORIF Intraoperative study. Reason for exam: Left clavicle ORIF. Findings: 11 images were obtained intraoperatively. Hardware was placed along the distal left clavicle. Cumulative Air Kerma in mGy: 2.67 mGy XR/XR clavicle LT* Impression: Intraoperative study. Impression dictated by: Francisco Piña Jr., D.OPrincess06/20/2022 9:58 AM Dictation Location: [place] [address] Transcribed By: [facility] 06/20/22 0958 Dictated By: Francisco Piña Jr, DO 06/20/22 0957 Signed By: 06/20/[address] [facility] Alanine aminotransferase [En zymatic activity/volume] in Serum or PlasmaOrdered By: Getachew Connolly on 06-19-2022 ALT [Catalytic activity/Vol] 8 U/L 7-52 [facility] Albumin [Mass/volume] in Ser um or Plasma by Bromocresol green (BCG) dye binding methoOrdered By: Getachew Connolly on 06-19-2022 Albumin BCG dye [Mass/Vol] 4.0 g/dL 3.5-5.7 [facility] Alkaline phosphatase [Enzyma tic activity/volume] in Serum or PlasmaOrdered By: Getachew Connolly on 06-19-2022 ALP [Catalytic activity/Vol] 108 U/L 34-104 [facility] Aspartate aminotransferase [ Enzymatic activity/volume] in Serum or PlasmaOrdered By: Getachew Connolly on 06-19-2022 AST [Catalytic activity/Vol] 16 U/L 13-39 [facility] Basophils Auto (Bld) [#/Vol] Ordered By: Getachew Connolly on 06-19-2022 Basophils (Bld) [#/Vol] 0.1 10*3/uL 0.0-0.2 [facility] Basophils/100 WBC Auto (Bld) Ordered By: Getachew Connolly on 06-19-2022 Basophils/100 WBC (Bld) 0.8 % . F [facility] Bilirubin.total [Mass/volume ] in Serum or PlasmaOrdered By: Getachew Connolly on 06-19-2022 Bilirubin [Mass/Vol] 0.8 mg/dL 0.3-1.0 [facility] CMP with reflex to A1Con Albumin [Mass/Vol] 4.0 g/dL Normal 3.5-5.7 [facility] Comment on above: Performed By: #### C BC, CMP wRFX A1C ####[place] [address] [place] [id number] [facility] Albumin/Globulin [Mass ratio] 1.6 {ratio} Normal [facility] Comment on above: Performed By: #### C BC, CMP wRFX A1C ####[place] [address] [place] [address] [facility] ALP [Catalytic activity/Vol] 108 U/L High 34-104 [facility] Comment on above: Result Comment: PERF ORMED BY: [facility] [address] [place] [id number] PATHOLOGIST WET MACHINE OPERATOR RAFITA WHITEHEAD M.D. Performed By: #### C BC, CMP wRFX A1C ####[place] [address] [place] [address] [facility] ALT [Catalytic activity/Vol] 8 U/L Normal 7-52 [facility] Comment on above: Performed By: #### C BC, CMP wRFX A1C ####[facility] [place] [address] [facility] Anion gap [Moles/Vol] 11.8 mmol/L Normal 6.0-15.0 [facility] Comment on above: Performed By: #### C BC, CMP wRFX A1C ####[facility] [address] [place] [address] [facility] AST [Catalytic activity/Vol] 16 U/L Normal 13-39 [facility] Comment on above: Performed By: #### C BC, CMP wRFX A1C ####[facility] [address] [place] [address] [facility] Bilirubin [Mass/Vol] 0.8 mg/dL Normal 0.3-1.0 [facility] Comment on above: Performed By: #### C BC, CMP wRFX A1C ####[place] [address] [place] [address] [facility] Calcium [Mass/Vol] 9.1 mg/dL Normal 8.6-10.3 [facility] Comment on above: Performed By: #### C BC, CMP wRFX A1C ####[place] [address] [place] [address] [facility] Chloride [Moles/Vol] 107 mmol/L Normal 98-107 [facility] Comment on above: Performed By: #### C BC, CMP wRFX A1C ####[place] [address] [place] [address] [facility] CO2 [Moles/Vol] 27.1 mmol/L Normal 21.0-31.0 [facility] Comment on above: Performed By: #### C BC, CMP wRFX A1C ####[address] [facility] Creatinine [Mass/Vol] 0.96 mg/dL Normal 0.70-1.30 [facility] Comment on above: Performed By: #### C BC, CMP wRFX A1C ####[place] [address] [place] [address] [facility] GFR/1.73 sq M.predicted MDRD (S/P/Bld) [Vol rate/Area] mL/min/{1.73_m2} [facility] Comment on above: Performed By: #### C BC, CMP wRFX A1C ####[facility] [place] [address] [facility] Globulin (S) [Mass/Vol] 2.5 g/dL Normal F [facility] Comment on above: Performed By: #### C BC, CMP wRFX A1C ####[facility] [place] [address] [facility] Glucose [Mass/Vol] 86 mg/dL Normal 74-100 [facility] Comment on above: Performed By: #### C BC, CMP wRFX A1C ####[facility] [address] [place] [id number] [facility] Potassium [Moles/Vol] 3.9 mmol/L Normal 3.5-5.1 [facility] Comment on above: Performed By: #### C BC, CMP wRFX A1C ####[place] [address] [place] [address] [facility] Protein [Mass/Vol] 6.5 g/dL Normal 6.4-8.9 [facility] Comment on above: Performed By: #### C BC, CMP wRFX A1C ####[place] [id number] [facility] Sodium [Moles/Vol] 142 mmol/L Normal 136-145 [facility] Comment on above: Performed By: #### C BC, CMP wRFX A1C ####[place] [id number] [facility] Urea nitrogen [Mass/Vol] 12 mg/dL Normal 7-25 [facility] Comment on above: Performed By: #### C BC, CMP wRFX A1C ####[place] [address] [place] [id number] [facility] Calcium [Mass/volume] in Ser um or PlasmaOrdered By: Getachew Connolly on 06-19-2022 Calcium [Mass/Vol] 9.1 mg/dL 8.6-10.3 [facility] Carbon dioxide, total [Moles /volume] in Serum or PlasmaOrdered By: Getachew Connolly on 06-19-2022 CO2 [Moles/Vol] 27.1 mmol/L 21.0-31.0 [facility] Chloride [Moles/volume] in S rigoberto or PlasmaOrdered By: Getachew Connolly on 06-19-2022 Chloride [Moles/Vol] 107 mmol/L 98-107 [facility] Complete Blood Count Auto Di ffon 06-19-2022 Basophils (Bld) [#/Vol] 0.1 10*3/uL Normal 0.0-0.2 [facility] Comment on above: Result Comment: PERF ORMED BY: [facility] [address] [place] [place] [address] PATHOLOGIST WET MACHINE OPERATOR RAFITA WHITEHEAD M.D. Performed By: #### C BC, CMP wRFX A1C ####[place] [id number] [facility] Basophils/100 WBC (Bld) 0.8 % Normal . [facility] Comment on above: Performed By: #### C BC, CMP wRFX A1C ####[address] Eosinophils (Bld) [#/Vol] 0.2 10*3/uL Normal 0.0-0.45 [facility] Comment on above: Performed By: #### C BC, CMP wRFX A1C ####[place] [id number] [facility] Eosinophils/100 WBC (Bld) 2.0 % Normal . [facility] Comment on above: Performed By: #### C BC, CMP wRFX A1C ####[place] [id number] [facility] Erythrocyte distribution width (RBC) [Ratio] 13.9 % Normal 12.0-14.8 [facility] Comment on above: Performed By: #### C BC, CMP wRFX A1C ####[place] [id number] [facility] Hematocrit (Bld) [Volume fraction] 44.0 % Normal 38.8-50.0 [facility] Comment on above: Performed By: #### C BC, CMP wRFX A1C ####[place] [id number] [facility] Hemoglobin (Bld) [Mass/Vol] 14.8 g/dL Normal 13.0-17.0 [facility] Comment on above: Performed By: #### C BC, CMP wRFX A1C ####[address] Lymphocytes (Bld) [#/Vol] 2.1 10*3/uL Normal 1.00-4.8 [facility] Comment on above: Performed By: #### C BC, CMP wRFX A1C ####[place] [id number] [facility] Lymphocytes/100 WBC (Bld) 24.4 % Normal . [facility] Comment on above: Performed By: #### C BC, CMP wRFX A1C ####[place] [id number] [facility] MCH (RBC) [Entitic mass] 33.0 pg Normal 27.5-35.2 [facility] Comment on above: Performed By: #### C BC, CMP wRFX A1C ####[place] [id number] [facility] MCV (RBC) [Entitic vol] 97.9 fL Normal 83.5-101 [facility] Comment on above: Performed By: #### C BC, CMP wRFX A1C ####[place] [id number] [facility] Mean Corpuscular HGB Conc 33.7 g/dL Normal 32.5-35.6 [facility] Comment on above: Performed By: #### C BC, CMP wRFX A1C ####[place] [id number] [facility] Monocytes (Bld) [#/Vol] 0.7 10*3/uL Normal 0.0-0.8 [facility] Comment on above: Performed By: #### C BC, CMP wRFX A1C ####[place] [id number] [facility] Monocytes/100 WBC (Bld) 7.7 % Normal . [facility] Comment on above: Performed By: #### C BC, CMP wRFX A1C ####[facility] [address] [place] [address] [facility] Neutrophils (Bld) [#/Vol] 5.6 10*3/uL Normal 1.8-7.7 [facility] Comment on above: Performed By: #### C BC, CMP wRFX A1C ####[place] [id number] [facility] Neutrophils/100 WBC (Bld) 65.1 % Normal . [facility] Comment on above: Performed By: #### C BC, CMP wRFX A1C ####[place] [address] [place] [address] [facility] NRBC% 0.0 /100{WBC} Normal 0-0.5 [facility] Comment on above: Performed By: #### C BC, CMP wRFX A1C ####[place] [id number] [facility] Platelet mean volume (Bld) [Entitic vol] 7.4 fL Normal 6.6-10.1 [facility] Comment on above: Performed By: #### C BC, CMP wRFX A1C ####[address] [facility] Platelets (Bld) [#/Vol] 210 10*3/uL Normal 150-450 [facility] Comment on above: Performed By: #### C BC, CMP wRFX A1C ####[place] [id number] [facility] RBC (Bld) [#/Vol] 4.49 10*6/uL Normal 3.90-5.60 [facility] Comment on above: Performed By: #### C BC, CMP wRFX A1C ####[address] [facility] WBC (Bld) [#/Vol] 8.6 10*3/uL Normal 4.1-10.5 [facility] Comment on above: Performed By: #### C BC, CMP wRFX A1C ####[address] [place] [address] [facility] Creatinine [Mass/volume] in Serum or PlasmaOrdered By: Getachew Connolly on 06-19-2022 Creatinine [Mass/Vol] 0.96 mg/dL 0.70-1.30 [facility] ECG 12 lead ECGon 06-19-2022 ECG 12 lead ECG [facility] [address] [place] [address] [place] [address] Electrocardiograph Report Signed Patient: Soto Aldana MR#: [id number] 986 : 1955 Acct:[id number] Age/Sex: 66 / M ADM Date: 06/19/22 Loc: Room: Type: [facility] Attending Dr: Getachew Connolly DO Ordering Provider: Getachew Connolly DO Date of Service: 06/19/22 ECG/ECG 12 lead ECG: Pre op Copies to: Test Reason : Blood Pressure : / mmHG Vent. Rate : 063 BPM Atrial Rate : 063 BPM P-R Int : 202 ms QRS Dur : 082 ms QT Int : 394 ms P-R-T Axes : 078 -58 063 degrees QTc Int : 403 ms Normal sinus rhythm first degree AV block Left axis deviation Low voltage QRS Abnormal ECG No previous ECGs available Confirmed by GRANT LAUREN DO ([id number]) on 06/19/2022 12:46:51 PM Referred By: SHANE Electronically Signed By:GRANT LAUREN DO Transcribed By: MUS Signed By Grant Lauren DO 06/19 1246 Normal [facility] Eosinophils Auto (Bld) [#/Vo l]Ordered By: Getachew Connolly on 06-19-2022 Eosinophils (Bld) [#/Vol] 0.2 10*3/uL 0.0-0.45 [facility] Eosinophils/100 WBC Auto (Bl d)Ordered By: Getachew Connolly on 06-19-2022 Eosinophils/100 WBC (Bld) 2.0 % . [facility] Erythrocyte distribution wid th Auto (RBC) [Ratio]Ordered By: Getachew Connolly on 06-19-2022 Erythrocyte distribution width (RBC) [Ratio] 13.9 % 12.0-14.8 [facility] Globulin Calc (S) [Mass/Vol] Ordered By: Getachew Connolly on 06-19-2022 Globulin (S) [Mass/Vol] 2.5 g/dL [facility] Glucose [Mass/volume] in Ser um or PlasmaOrdered By: Getachew Connolly on 06-19-2022 Glucose [Mass/Vol] 86 mg/dL 74-100 [facility] Hematocrit Auto (Bld) [Volum e fraction]Ordered By: Getachew Connolly on 06-19-2022 Hematocrit (Bld) [Volume fraction] 44.0 % 38.8-50.0 [facility] Hemoglobin [Mass/volume] in BloodOrdered By: Getachew Connolly on 06-19-2022 Hemoglobin (Bld) [Mass/Vol] 14.8 g/dL 13.0-17.0 [facility] Laboratory - Chemistry and C hemistry - challengeOrdered By: Getachew Connolly on 06-19-2022 GFR/1.73 sq M.predicted MDRD (S/P/Bld) [Vol rate/Area] mL/min/{1.73_m2} [facility] Leukocytes [#/volume] correc franky for nucleated erythrocytes in Blood by Automated counOrdered By: Getachew Connolly on 06-19-2022 WBC corrected for nucl RBC Auto (Bld) [#/Vol] 8.6 10*3/uL 4.1-10.5 [facility] Lymphocytes Auto (Bld) [#/Vo l]Ordered By: Getachew Connolly on 06-19-2022 Lymphocytes (Bld) [#/Vol] 2.1 10*3/uL 1.00-4.8 [facility] Lymphocytes/100 WBC Auto (Bl d)Ordered By: Getachew Connolly on 06-19-2022 Lymphocytes/100 WBC (Bld) 24.4 % . [facility] MCH Auto (RBC) [Entitic mass ]Ordered By: Getachew Connolly on 06-19-2022 MCH (RBC) [Entitic mass] 33.0 pg 27.5-35.2 [facility] MCHC Auto (RBC) [Mass/Vol]Or dered By: Getachew Connolly on 06-19-2022 MCHC (RBC) [Mass/Vol] 33.7 g/dL 32.5-35.6 [facility] MCV Auto (RBC) [Entitic vol] Ordered By: Getachew Connolly on 06-19-2022 MCV (RBC) [Entitic vol] 97.9 fL 83.5-101 [facility] Monocytes Auto (Bld) [#/Vol] Ordered By: Getachew Connolly on 06-19-2022 Monocytes (Bld) [#/Vol] 0.7 10*3/uL 0.0-0.8 [facility] Monocytes/100 WBC Auto (Bld) Ordered By: Getachew Connolly on 06-19-2022 Monocytes/100 WBC (Bld) 7.7 % . [facility] Neutrophils Auto (Bld) [#/Vo l]Ordered By: Getachew Connolly on 06-19-2022 Neutrophils (Bld) [#/Vol] 5.6 10*3/uL 1.8-7.7 [facility] Neutrophils/100 WBC Auto (Bl d)Ordered By: Getachew Connolly on 06-19-2022 Neutrophils/100 WBC (Bld) 65.1 % . [facility] No Panel InformationOrdered By: Getachew Connolly on 06-19-2022 Pharmacy Creatinine Clearance (Chem N/A [facility] Nucleated erythrocytes [Pres ence] in Blood by Automated countOrdered By: Getachew Connolly on 06-19-2022 Nucleated RBC Auto Ql (Bld) 0.0 /100{WBC} 0-0.5 [facility] Platelet mean volume Auto (B ld) [Entitic vol]Ordered By: Getachew Connolly on 06-19-2022 Platelet mean volume (Bld) [Entitic vol] 7.4 fL 6.6-10.1 [facility] Platelets Auto (Bld) [#/Vol] Ordered By: Getachew Connolly on 06-19-2022 Platelets (Bld) [#/Vol] 210 10*3/uL 150-450 [facility] Potassium [Moles/volume] in Serum or PlasmaOrdered By: Getachew Connolly on 06-19-2022 Potassium [Moles/Vol] 3.9 mmol/L 3.5-5.1 [facility] Protein [Mass/volume] in Ser um or PlasmaOrdered By: Getachew Connolly on 06-19-2022 Protein [Mass/Vol] 6.5 g/dL 6.4-8.9 [facility] RBC Auto (Bld) [#/Vol]Ordere d By: Getachew Connolly on 06-19-2022 RBC (Bld) [#/Vol] 4.49 10*6/uL 3.90-5.60 [facility] Serum or plasma albumin/glob ulin mass ratioOrdered By: Getachew Connolly on 06-19-2022 Albumin/Globulin [Mass ratio] 1.6 {ratio} [facility] Serum or plasma anion gap de terminationOrdered By: Getachew Connolly on 06-19-2022 Anion gap [Moles/Vol] 11.8 mmol/L 6.0-15.0 [facility] Sodium [Moles/volume] in Ser um or PlasmaOrdered By: Getachew Connolly on 06-19-2022 Sodium [Moles/Vol] 142 mmol/L 136-145 [facility] Urea nitrogen [Mass/volume] in Serum or PlasmaOrdered By: Getachew Connolly on 06-19-2022 Urea nitrogen [Mass/Vol] 12 mg/dL 7-25 [facility] WBC Auto (Bld) [#/Vol]Ordere d By: Getachew Connolly on 06-19-2022 WBC (Bld) [#/Vol] 8.6 10*3/uL 4.1-10.5 [facility] XR clavicle LT*on 06-19-2022 XR clavicle LT* [facility] [employer] Other XR clavicle LT* [facility] [employer] Other XR clavicle LT* [address] [facility] No [facility] [employer] Other XR clavicle LT* [place] [address] N [facility] [employer] Other XR clavicle LT* XRay Report [facility] [employer] Other XR clavicle LT* Signed [employer] Other XR clavicle LT* Patient: Soto Aldana MR#: [id number] [employer] Other XR clavicle LT* 986 [employer] Other XR clavicle LT* : 1955 Acct:[id number] [employer] Other XR clavicle LT* Age/Sex: 66 / M ADM Date: 06/19/22 [employer] Other XR clavicle LT* Loc: [facility] Room: Type: [facility] [employer] Other XR clavicle LT* Attending Dr: Getachew Connolly DO [employer] Other XR clavicle LT* Copies to: Getachew Connolly DO [employer] Other XR clavicle LT* Ordering Provider: Getachew Connolly DO [employer] Other XR clavicle LT* Date of Service: 06/19/22 [employer] Other XR clavicle LT* XR/XR clavicle LT*: Pain of left clavicle [employer] Other XR clavicle LT* LEFT CLAVICLE - 2 views [employer] Other XR clavicle LT* CLINICAL HISTORY: Follow-up left distal clavicular fracture [employer] Other XR clavicle LT* COMPARISON: Outside left shoulder series 05/17/2022 [employer] Other XR clavicle LT* FINDINGS: [employer] Other XR clavicle LT* Distal left clavicular fracture demonstrates interval callus formation suggestive of healing [employer] Other XR clavicle LT* response. No significant change in alignment. [employer] Other XR clavicle LT* XR/XR clavicle LT* [employer] Other XR clavicle LT* IMPRESSION: [employer] Other XR clavicle LT* HEALING DISTAL LEFT CLAVICULAR FRACTURE. [employer] Other XR clavicle LT* Impression dictated by: Francisco Piña Jr., DEpifanio06/19/2022 11:23 AM [employer] Other XR clavicle LT* Dictation Location: [place] [address] [employer] Other XR clavicle LT* Transcribed By: PWS 06/19/22 [facility] [employer] Other XR clavicle LT* Dictated By: Francisco Piña Jr, DO 06/19/22 [facility] [employer] Other XR clavicle LT* Signed By: [employer] [facility] [employer] Other XR clavicle LT* 06/19/22 [facility] [employer] Other XR clavicle LT* [facility] [address] [place] [address] [place] [address] XRay Report Signed Patient: Soto Aldana MR#: [id number] 986 : 1955 Acct:[id number] Age/Sex: 66 / M ADM Date: 06/19/22 Loc: [facility] Room: Type: [facility] CLI Attending Dr: Getachew Connolly DO Copies to: Getachew Connolly DO Ordering Provider: Getachew Connolly DO Date of Service: 06/19/22 XR/XR clavicle LT*: Pain of left clavicle LEFT CLAVICLE - 2 views CLINICAL HISTORY: Follow-up left distal clavicular fracture COMPARISON: Outside left shoulder series 05/17/2022 FINDINGS: Distal left clavicular fracture demonstrates interval callus formation suggestive of healing response. No significant change in alignment. XR/XR clavicle LT* IMPRESSION: HEALING DISTAL LEFT CLAVICULAR FRACTURE. Impression dictated by: Francisco Piña Jr., D.O.06/19/2022 11:23 AM Dictation Location: [facility]12 Transcribed By: [facility] 06/19/22 1123 Dictated By: Francisco Piña Jr, DO 06/19/22 1052 Signed By: 06/19/22 1123 Normal [facility] Vital Signs Date Time Vital Sign Value Performing Clinician Facility 12-12-2022 09:32-0400 Diastolic blood pressure 72 mm[Hg] BUSINESS SERVICES TECHTita Geller Work Phone: [facility] 12-12-2022 09:32-0400 Heart rate 79 /min BUSINESS SERVICES TECHTita Geller Work Phone: [facility] 12-12-2022 09:32-0400 Respiratory rate 16 /min BUSINESS SERVICES TECHTita Geller Work Phone: [facility] 12-12-2022 09:32-0400 SaO2% (BldA) [Mass fraction] 94 % BUSINESS SERVICES TECHTita Geller Work Phone: [facility] 12-12-2022 09:32-0400 Systolic blood pressure 123 mm[Hg] MARINA Geller Work Phone: [facility] 12-12-2022 09:02-0400 Body temperature 98 [degF] MARINA Geller Work Phone: [facility] 12-12-2022 08:32-0400 Inhaled oxygen flow rate 8 L/min MARINA Geller Work Phone: [facility] 12-12-2022 07:05-0400 Body height 172.72 cm MARINA Geller Work Phone: [facility] 12-12-2022 07:05-0400 Body mass index (BMI) [Ratio] 22.1 kg/m2 MARINA Geller Work Phone: [facility] 12-12-2022 07:05-0400 Body weight 66.2 kg MARINA Geller Work Phone: [facility] 12-04-2022 10:00-0400 Body height 172.72 cm Getachew Connolly Other [employer] Other 12-04-2022 10:00-0400 Body mass index (BMI) [Ratio] 21.74 kg/m2 Getachew Connolly Other [employer] Other 12-04-2022 10:00-0400 Body weight 64.86 kg Getachew Connolly Other [employer] Other 10-02-2022 10:45-0400 Body height 172.72 cm Getachew Connolly Other [employer] Other 10-02-2022 10:45-0400 Body mass index (BMI) [Ratio] 22.96 kg/m2 Getachew Connolly Other [employer] Other 10-02-2022 10:45-0400 Body weight 68.49 kg Getachew Connolly Other [employer] Other 06-20-2022 11:07-0400 Diastolic blood pressure 71 mm[Hg] BUSINESS SERVICES TECHTita Geller Work Phone: [facility] 06-20-2022 11:07-0400 Heart rate 80 /min BUSINESS SERVICES TECHTita Geller Work Phone: [facility] 06-20-2022 11:07-0400 Respiratory rate 18 /min MARINA Geller Work Phone: [facility] 06-20-2022 11:07-0400 SaO2% (BldA) [Mass fraction] 93 % BUSINESS SERVICES TECHTita Geller Work Phone: [facility] 06-20-2022 11:07-0400 Systolic blood pressure 125 mm[Hg] BUSINESS SERVICES TECH Nessa Geller Work Phone: [facility] 06-20-2022 10:22-0400 Body temperature 97 [degF] BUSINESS SERVICES TECHTita Geller Work Phone: [facility] 06-20-2022 09:47-0400 Inhaled oxygen flow rate 10 L/min BUSINESS SERVICES TECHTita Geller Work Phone: [facility] 06-20-2022 07:05-0400 Body height 172.72 cm BUSINESS SERVICES TECH Nessa Geller Work Phone: [facility] 06-20-2022 07:05-0400 Body mass index (BMI) [Ratio] 23.1 kg/m2 BUSINESS SERVICES TECHTita Geller Work Phone: [facility] 06-20-2022 07:05-0400 Body weight 69 kg BUSINESS SERVICES TECHTita Geller Work Phone: [facility] 06-19-2022 09:30-0400 Body height 172.72 cm Getachew Connolly Other [employer] Other 06-19-2022 09:30-0400 Body mass index (BMI) [Ratio] 22.2 kg/m2 Getachew Connolly Other [employer] Other 06-19-2022 09:30-0400 Body weight 66.23 kg Getachew Connolly Other [employer] Other Encounters Encounter Date Encounter Type Care Provider Facility Start: 12-09-2023 End: 12-09-2023 ambulatory FERDINAND ASCENCIO [place] Start: 12-09-2023 End: 12-09-2023 Patient encounter procedure FERDINAND M SILVA [facility] Start: 01-01-2023 End: 01-01-2023 ambulatory Getachew Connolly Other [employer] Other Start: 01-01-2023 Postop follow up vis it related to original px Getachew Connolly [facility] Start: 12-12-2022 End: 12-12-2022 ambulatory Getachew Connolly Facility:[facility] Start: 12-12-2022 End: 12-12-2022 Admission to same day surgery center BUSINESS SERVICES TECH Nessa Geller Work Phone: [facility] [address] [place] Start: 12-12-2022 End: 12-12-2022 ambulatory BUSINESS SERVICES TECH Nessagraciela Geller Work Phone: [facility] Work Phone: Start: 12-11-2022 End: 12-11-2022 ambulatory Nessa Geller Facility:[facility] Start: 12-11-2022 End: 12-11-2022 Patient encounter procedure BUSINESS SERVICES TECH Nessa Geller Work Phone: [facility] [address] Work Phone: Start: 12-06-2022 End: 12-06-2022 ambulatory Nessa Geller Facility:[facility] Start: 12-06-2022 End: 12-06-2022 ambulatory BUSINESS SERVICES TECH Nessa Duyen Work Phone: [facility] Work Phone: Start: 12-06-2022 End: 12-06-2022 Patient encounter procedure BUSINESS SERVICES TECH Nessa Duyen Work Phone: [facility] Work Phone: Start: 12-04-2022 Encounter for other preprocedural examination Getachew Connolly [facility] Start: 12-04-2022 Office outpatient vi sit 25 minutes Getachew Connolly [facility] Start: 12-04-2022 End: 12-04-2022 ambulatory BUSINESS SERVICES TECH Nessa Duyen Work Phone: [facility] Work Phone: Start: 12-04-2022 End: 12-04-2022 Patient encounter procedure BUSINESS SERVICES TECH Nessa Duyen Work Phone: [facility] Start: 10-02-2022 Postop follow up vis it related to original px Getachew Shane [facility] Start: 10-02-2022 End: 10-02-2022 ambulatory Nessa Geller Facility:[facility] Start: 10-02-2022 End: 10-02-2022 ambulatory BUSINESS SERVICES TECH Nessa Duyen Work Phone: [facility] [facility] Work Phone: Start: 10-02-2022 End: 10-02-2022 Patient encounter procedure BUSINESS SERVICES TECH Nessa Duyen Work Phone: [facility] Start: 08-21-2022 Office outpatient vi sit 25 minutes Getachew Shane [facility] Start: 08-21-2022 End: 08-21-2022 ambulatory Nessa Geller Facility:[facility] Start: 08-21-2022 End: 08-21-2022 ambulatory BUSINESS SERVICES TECHTita Bishop Duyen Work Phone: [facility] Work Phone: Start: 08-21-2022 End: 08-21-2022 Patient encounter procedure BUSINESS SERVICES TECH Nessa Duyen Work Phone: [facility] Start: 08-08-2022 End: 08-08-2022 ambulatory Nessa Geller Facility:[facility] Start: 08-08-2022 End: 08-08-2022 Patient encounter procedure BUSINESS SERVICES TECH Nessa Duyen Work Phone: [facility] [address] Work Phone: Start: 07-31-2022 Postop follow up vis it related to original px Getachew Shane [facility] Start: 07-31-2022 End: 07-31-2022 ambulatory Nessa Geller Facility:[facility] Start: 07-31-2022 End: 07-31-2022 ambulatory BUSINESS SERVICES TECH Nessa Geller Work Phone: [facility] [place] [facility] Work Phone: Start: 07-31-2022 End: 07-31-2022 Patient encounter procedure BUSINESS SERVICES TECH Nessa Geller Work Phone: [facility] [place] [facility] Start: 07-08-2022 End: 07-08-2022 ambulatory Getachew Connolly Facility:[facility] Start: 07-08-2022 End: 07-08-2022 ambulatory BUSINESS SERVICES TECH Nessa Geller Work Phone: [facility] [place] [facility] Work Phone: Start: 07-08-2022 End: 07-08-2022 Patient encounter procedure BUSINESS SERVICES TECH Nessa Geller Work Phone: [facility] [place] [facility] Start: 06-26-2022 End: 06-26-2022 ambulatory Getachew Connolly Other [facility] Other Start: 06-26-2022 Telephone encounter Getachew [facility] Start: 06-20-2022 End: 06-20-2022 ambulatory Getachew Connolly Facility:[facility] Start: 06-20-2022 End: 06-20-2022 Admission to same day surgery center BUSINESS SERVICES TECH Nessa Geller Work Phone: [facility] [place] [facility] [place] Start: 06-20-2022 End: 06-20-2022 ambulatory BUSINESS SERVICES TECH Nessa Geller Work Phone: [facility] [place] [facility] Work Phone: Start: 06-19-2022 Office outpatient ne w 45 minutes Getachew Connolly [facility] Start: 06-19-2022 End: 06-19-2022 ambulatory Getachew Connolly [facility] Other Start: 06-19-2022 End: 06-19-2022 Patient encounter procedure BUSINESS SERVICES TECH Nessa Geller Work Phone: [facility] Work Phone: Start: 06-19-2022 End: 06-19-2022 Patient encounter procedure BUSINESS SERVICES TECH Nessa Geller Work Phone: [facility] Start: 05-17-2022 End: 05-18-[address] [facility] Facility:H1 Procedures Date Procedure Procedure Detail Performing Clinician Start: 12-12-2022 Open reduction of fracture of clavicle with internal fixation BUSINESS SERVICES TECH Nessa Geller Work Phone: Start: 12-11-2022 CT of lungs BUSINESS SERVICES TECH Amrit Geller Work Phone: Start: 12-04-2022 Plain X-ray of left clavicle BUSINESS SERVICES TECH Nessa Geller Work Phone: Start: 10-02-2022 Plain X-ray of left clavicle BUSINESS SERVICES TECH Nessa Geller Work Phone: Start: 08-21-2022 Plain X-ray of left clavicle BUSINESS SERVICES TECH Nessa Geller Work Phone: Start: 08-08-2022 CT of left shoulder APR N Nessa Geller Work Phone: Start: 07-31-2022 Plain X-ray of left clavicle BUSINESS SERVICES TECH Nessa Geller Work Phone: Start: 07-08-2022 Plain X-ray of left clavicle BUSINESS SERVICES TECH Nessa Geller Work Phone: Start: 06-20-2022 End: 06-20-2022 Plain X-ray of left clavicle BUSINESS SERVICES TECH Nessa Geller Work Phone: Start: 06-20-2022 Open reduction of fracture of clavicle with internal fixation BUSINESS SERVICES TECH Nessa Geller Work Phone: Start: 06-19-2022 Plain X-ray of left clavicle BUSINESS SERVICES TECH Nessa Geller Work Phone: Plan of Treatment Date Care Activity Detail Author Start: 12-12-2022 End: 12-12-2022 [facility] Start: 06-20-2022 Plain X-ray of left clavicle XR clavicle LT* [facility] Start: 06-20-2022 XR Clavicle - left Views [facility] Start: 06-20-2022 End: 06-20-2022 [facility] Patient referral [facility] Work Phone: Immunizations Immunization Date Immunization Notes Care Provider Fa cility 03-29-2021 COVID-19 mRNA, Comirnaty (Pfizer) BUSINESS SERVICES TECH Nessa Geller Work Phone: [facility] Payers Date Payer Category Payer Unknown [id number] 2022 Self-pay 2019 Unknown [id number] 1955 Unknown [id number] 2.16.84 [id number] 1955 Unknown [id number] 2.16.8 [id number] Unknown [id number] 2.16.8 [id number] Unknown [id number] 2.16.8 [id number] Unknown [id number] 2.16.8 [id number] Unknown [id number] 2.16.8 [id number] Unknown [id number] 2.16.8 [id number] Unknown [id number] 2.16.8 [id number] Unknown [id number] 2.16.8 [id number] Unknown [id number] 2.16.8 [id number] Unknown [id number] 2.16.8 [id number] Unknown [id number] 2.16.8 [id number] Unknown [id number] 2.16.8 [id number] Unknown [id number] 2.16.8 [id number] Social History Date Type Detail Facility Sex Assigned At [facility] Start: 06-20-2022 End: 12-12-2022 Tobacco smoking status NHIS Smoker (finding) [facility] Start: 1955 Sex Assigned At Male F [facility] Tobacco smoking status No Smokin g Status Entered [facility] Medical Equipment Procedure Code Equipment Code Equipment Origin al Text Equipment Identifier Dates ORIF fracture of clavicle CANCELLOUS 7.5 CRUSHED FDA Start: 06-20-2022 ORIF fracture of clavicle Orthopaedic fixation plate, non-bioabsorbable, non-sterile ()[id number] FDA Start: 06-20-2022 ORIF fracture of clavicle Orthopaedic bone screw, non-bioabsorbable, non-sterile ()[id number] FDA Start: 06-20-2022 ORIF fracture of clavicle Orthopaedic bone screw, non-bioabsorbable, non-sterile ()[id number] FDA Start: 06-20-2022 ORIF fracture of clavicle Orthopaedic bone screw, non-bioabsorbable, non-sterile ()[id number] FDA Start: 06-20-2022 ORIF fracture of clavicle Orthopaedic bone screw, non-bioabsorbable, non-sterile ()[id number] FDA Start: 06-20-2022 ORIF fracture of clavicle Orthopaedic bone screw, non-bioabsorbable, non-sterile ()[id number] FDA Start: 06-20-2022 ORIF fracture of clavicle CANCELLOUS 7.5 CRUSHED FDA Start: 06-20-2022 ORIF fracture of clavicle CANCELLOUS 7.5 CRUSHED FDA Start: 06-20-2022 ORIF fracture of clavicle CANCELLOUS 7.5 CRUSHED FDA Start: 06-20-2022 ORIF fracture of clavicle CANCELLOUS 7.5 CRUSHED FDA Start: 06-20-2022 ORIF fracture of clavicle CANCELLOUS 7.5 CRUSHED FDA Start: 06-20-2022 ORIF fracture of clavicle CANCELLOUS 7.5 CRUSHED FDA Start: 06-20-2022 Goals Date Patient Goal Desired Activity /State Clinical Notes 05-17-2022 to 11-25-2023 Radiology Note Date & Type Note Facility 11-25-2023 Evaluation + Plan note Future Scheduled TestsCT Chest, Low Dose Screening 11/25/23 [facility] 01-01-2023 Evaluation note Encounter Date Diagnosis Assessment Notes Dec, Closed displaced fracture of shaft of left clavicle with routine healing, subsequent encounter (ICD-10 - S42.022D) Soto is here today for first follow-up s/p left clavicle hardware removal. He is doing well. His surgical incisions benign. Physical exam is overall benign. He does have some anterior chest wall numbness which we will continue to monitor. Activities as tolerated this point follow-up as needed. Patient is progressing well from surgery. Retained absorbable suture removed today under clean conditions, patient tolerated well. May progress activity as tolerated. Call with questions/conc erns. Dec, Other specified postprocedural states (ICD-10 - Z98.890) [facility] Other 09-13-2023 Evaluation note* Encounter Date Diagnosis Assessment Notes Treatment Notes Treatment Clinical Notes Nov, Closed displaced fracture of shaft of left clavicle with routine healing, subsequent encounter (ICD-10 - S42.022D) Soto is here now over 3 months s/p left distal clavicle ORIF. Physical exam and x-rays have been reviewed at bedside. Physical exam is overall benign he does have good range of motion of the left shoulder. Continues to have pain over the plate as well as AC joint. He would like to discuss plate removal which I think is reasonable at this time. Soto presents with painful hardware left clavicle. At this juncture we have discussed the findings and diagnosis as well as reviewed appropriate imaging and performed interpretation of testing. Surgical intervention is recommended. Prior medical notes and history have been reviewed. Surgical versus non-operative management have been discussed in detail and non-operative management was given as an option. The risks of surgical intervention were given. Pre-operative optimization will be done prior to surgical procedure to limit rex-operative risks. I have discussed the planned procedure, how and who performs the procedure, and the personnel involved. Cardiovascular, pulmonary, and other life threatening episodes can occur during surgery although there is a low risk of these happening. Surgical risks including bleeding, neurovascular injury, wound closure problems and infection were discussed. Rex-operative risks including infection, bleeding, wound healing problems, and need for further surgery were discussed. It was discussed that there is a possibility of blood transfusion with any surgical procedure and the risks involved in receiving a blood transfusion. Possibility of, and need for, future bracing or DME use, physical or occupational therapy, mental therapy, rehabilitation, pain management and need for secondary procedures was discussed. I have warned against smoking and the use of tobacco products due to the risks associated with them, in particular, poor healing. I have advised against the [employer] use of narcotic pain medication. I have advised to follow all post-operative instructions in order to obtain the best outcome. Informed consent has been verbally affirmed and signed as indicated. Radiographs reviewed with patient. Based on patient's coninued discomfort, discussed potential for surgical hardware excision, but advised this may not give him all of the pain relief he is looking for. Surgical produre, risks, recovery and restrictions discussed in detail. Patient was in understanding and wishes to proceed. Nov, Other specified postprocedural states (ICD-10 - Z98.890) Nov, Pre-op exam (ICD-10 - Z01.818) [facility] Other 07-12-2023 Evaluation note* Encounter Date Diagnosis Assessment Notes Treatment Notes Treatment Clinical Notes Sep, Closed displaced fracture of shaft of left clavicle with routine healing, subsequent encounter (ICD-10 - S42.022D) Soto is here now over 3 months s/p left distal clavicle ORIF. Physical exam and x-rays have been reviewed at bedside. His range of motion has returned to normal at this time. Still having some pain over the end of the plate but he says that it is improving slowly. I recommended continued advancement of activities for the time being. Continue to monitor the plate pain. I will plan to see him back in 3 months for recheck. Discussed plate removal in the future if it continues to be painful Soto returns for his follow up visit 3 month s/p open reduction and internal fixation of left clavicle fracture, application of bone graft. Updated radiographs reviewed and discussed in detail with patient. He is progressing and healing routinely. I advised physical therapy along with continuation of motion exercises at home. We also discussed removing the hardware in the future. Patient voices understanding. He opts to monitor at this point. We will follow up in 2 months time. Sep, Other specified postprocedural states (ICD-10 - Z98.890) [facility] Other 05-31-2023 Evaluation note* Encounter Date Diagnosis Assessment Notes Treatment Notes Treatment Clinical Notes July, Closed displaced fracture of shaft of left clavicle with routine healing, subsequent encounter (ICD-10 - S42.022D) Soto is here now over 2 months s/p left distal clavicle ORIF. Physical exam and x-rays have been reviewed at bedside. Continue working on range of motion and have ordered physical therapy today. Okay to advance weightbearing to less than 10 pounds. We will plan to see him back in 4 to 6 weeks for final x-rays CT reviewed with patient. He is progressing well. Formal therapy order provided. Sent in Meloxicam with instructions on use. July, Other specified postprocedural states (ICD-10 - Z98.890) [facility] Other 05-10-2023 Evaluation note* Encounter Date Diagnosis Assessment Notes Treatment Notes Treatment Clinical Notes July, Closed displaced fracture of shaft of left clavicle with routine healing, subsequent encounter (ICD-10 - S42.022D) Soto is here now 6 weeks s/p left distal clavicle ORIF. [facility] and over a month out from his injury went over the specifics. Physical exam and x-rays have been reviewed at bedside. This time he can advance range of motion as tolerated while maintaining nonweightbearing due to the broken screw. I will order CT scan of the shoulder to evaluate clavicle and see healing progress. Discussed hardware removal Radiographs reviewed with patient today. Discussed with patient there are some changes noted we will obtain a CT scan. Patient given CT information sheet. July, Other specified postprocedural states (ICD-10 - Z98.890) [facility] Other 04-05-2023 Evaluation note* Encounter Date Diagnosis Assessment Notes Treatment Notes Treatment Clinical Notes Jun, Closed displaced fracture of shaft of left clavicle, initial encounter (ICD-10 - S42.022A) [facility] Other 03-29-2023 Evaluation note* Encounter Date Diagnosis Assessment Notes Treatment Notes Treatment Clinical Notes May, Closed displaced fracture of shaft of left clavicle, initial encounter (ICD-10 - S42.022A) Stoo presents with near a type V left distal clavicle fracture. At this juncture we have discussed the findings and diagnosis as well as personally reviewed appropriate imaging and performed interpretation of related testing and examination with the patient in office today. Prior medical notes from [facility] and history have been reviewed. At this time I would recommend ORIF. At this juncture we have discussed the findings and diagnosis as well as reviewed appropriate imaging and performed interpretation of testing. Surgical intervention is recommended. Prior medical notes and history have been reviewed. Surgical versus non-operative management have been discussed in detail and non-operative management was given as an option. The risks of surgical intervention were given. Pre-operative optimization will be done prior to surgical procedure to limit rex-operative risks. I have discussed the planned procedure, how and who performs the procedure, and the personnel involved. Cardiovascular, pulmonary, and other life threatening episodes can occur during surgery although there is a low risk of these happening. Surgical risks including bleeding, neurovascular injury, wound closure problems and infection were discussed. Rex-operative risks including infection, bleeding, wound healing problems, and need for further surgery were discussed. It was discussed that there is a possibility of blood transfusion with any surgical procedure and the risks involved in receiving a blood transfusion. Possibility of, and need for, future bracing or DME use, physical or occupational therapy, mental therapy, rehabilitation, pain management and need for secondary procedures was discussed. I have warned against smoking and the use of tobacco products due to the risks associated with them, in particular, poor healing. I have advised against the [facility] use of narcotic pain medication. I have advised to follow all post-operative instructions in order to obtain the best outcome. Informed consent has been verbally affirmed and signed as indicated. The patient has been involved in our cooperative treatment plan and agrees to move forward with treatment at this time. Della presents with left clavicle injury. Injury is over a month old. Radiographs reviewed and discussed with patient in detail. Patient has sufferred a clavicle fracture. This injury will require surgical repair. Pt was explained risks, benefits and alternatives to surgery including but not limited to bleeding, infection, need for further surgery, scarring, wound healing issues, and nerve injury. Pt understands these risks and wishes to proceed. May, Smoker (ICD-10 - F17.200) Patient has a tobacco use disorder we have discussed this today. I have advised complete cessation. We have discussed complications caused by tobacco use including reduced bone mineral density and increased risk of musculoskeletal injuries as well as increased surgical risk of infection, physiologic changes to skin and bone healing, anesthesia complications, mental health changes that affect patient reported outcomes, and a poor prognosis with tobacco use. I have recommended that tobacco cessation be performed at least 4 weeks prior to any surgical interventions. Tobacco cessation program at [facility] has been recommended and offered as well as the national Quitline 3-914-IYBY-NOW. We have discussed pharmacologic treatment including nicotine replacement therapy which can lead to a positive nicotine test as well as nicotine free medications both of which will need to be managed by their PCP. We have provided handout for the [facility] Tobacco Cessation Program. This discussion was limited to 5 minutes. May, Other See orders for this visit as documented in the electronic medical record. [facility] Other 03-01-2023 History general Narrative - Reported* Type Description Date Medical History hypertension Medical History hyperlipidemia Surgical History tonsillectomy Surgical History appendectomy Surgical History ORIF and bone graft 05/2022 [facility] Other 03-01-2023 History general Narrative - Reported* Type Description Date Medical History hypertension Medical History hyperlipidemia Surgical History tonsillectomy Surgical History appendectomy Surgical History ORIF and bone graft left clavic le 05/2022 [facility] Other 03-01-2023 History general Narrative - Reported* Type Description Date Medical History hypertension Medical History hyperlipidemia Surgical History tonsillectomy Surgical History appendectomy Surgical History ORIF and bone graft left clavic le 05/2022 Surgical History removal of painful hardware fro m left clavicle 06/20/22 [facility] Other 02-24-2023 NotePROCEDURE: XR SHOULDER LT 2V or > HISTORY: Unspecified fall ; left shoulder pain for 3 weeks COMPARISON: XR chest 04/24/2018 FINDINGS: BONES:Acute, mildly displaced fracture involving distal end of left clavicle with cephalad apex angulation. Intact appearance of the acromioclavicular joint. Unremarkable humeral head and glenohumeral joint. Old, healed/healing lateral left rib fractures. SOFT TISSUES:No visible soft tissue swelling. EFFUSION:None visible. OTHER: Negative. IMPRESSION: 1. Acute, mildly displaced distal left clavicle fracture. Electronically authenticated by: JULIA GAN Date: 2022-05-17 12:38[facility] [place] noteNo assessment information availableSelect [facility] [employer] Work Phone: History general Narrative - Reported* Type Description Date Medical History hypertension Medical History hyperlipidemia Surgical History tonsillectomy Surgical History appendectomy [facility] Other Hospital course Narrative No data available for this section [facility] Hospital Discharge instructions Additional Instructions Dr. Connolly's discharge instructions Clavicle fracture You can wear your sling for comfort but may move your arm to shoulder level both forward and to the side as tolerated. Remain nonweightbearing greater than 5 pounds on the operative extremity. Maintain your postoperative dressing for 1 week, this is waterproof and you may shower over it. After 1 week you may remove this and then shower over your incision with warm soapy water. Take pain medications as prescribed. You may use Tylenol/NSAIDs [id number] as indicated on the bottle. Follow-up in Dr. Connolly's office in 3 weeks for x-rays and wound check. Call office with any questions or concerns. Dr. Getachew [facility] [address] [place] [address] [place] [address] [phone] [place] [facility] Work Phone: Hospital Discharge instructions No data available for this section [facility] Progress note No data available for this section [facility] Summary Purpose Family History Relationship Condition Age at Onset Recorded Date/T nilsa father Myocardial infarction Unknown Not Specified Hypothyroidism Unknown brother Hypertension Unknown Advance Directives Advance Directive Response Recorded Date/ Time Advance Directives No June 19 023 9:42am Advance Directive Response Recorded Date/ Time Advance Directives No June 21 023 2:04pm Chief Complaint and Reason for Visit Chief Complaint Fracture Fracture Chief Complaint M89.8X1 Fracture Fracture Chief Complaint M89.8X1 Fracture Fracture S42.022D Chief Complaint M89.8X1 Fracture Fracture S42.022D S42.022D s42.022d Chief Complaint S42.022D S42.022D s42.022d S42.022D Chief Complaint S42.022D Chief Complaint S42.022D S42.022D Clavicle Pain Chief Complaint S42.022D S42.022D Clavicle Pain smoker Clavicle Pain Additional Source Comments (unrecognized sect ion and content) No Status Records FoundNo Status Records FoundNo Status Records Found INFORMATION SOURCE (unrecogn ized section and content) DATE CREATED AUTHOR 05/24/2022 [facility] DATE CREATED AUTHOR AUTHOR'S ORGANIZ ATION 12/23/2022 [facility] DATE CREATED AUTHOR AUTHOR'S ORGANIZ ATION 12/18/2023 [facility] REASON FOR VISIT (unrecogniz ed section and content) [facility] CONSULT [facility] CLAVICLE FX X2 MOS PT TO BRING DISCPAIN MEDSRecheck Left ClavicleCT ResultsRecheck Left ClavicleRecheck Left ClavicleRecheck Left Clavicle Care Teams (unrecognized sec tion and content) Personnel Name: NESSA GELLER CNP Team Status: Active Member Role Status Dates Nessa Geller APRN PROGRAMMING COORDINATOR-Tania Primary Care Provider Activ e Team Status: Inactive Member Role Status Dates Getachew Connolly DO Attending Provider Active Team Status: Inactive Member Role Status Dates Getachew Connolly DO Attending Provider Active Nessa Geller APRN PROGRAMMING COORDINATOR-C Primary Care Provider Activ e Team Status: Inactive Member Role Status Dates Nessa Geller APRN PROGRAMMING COORDINATOR-Tania Primary Care Provider Activ akash Connolly DO Attending Provider Active Team Status: Inactive Member Role Status Dates Nessa Geller APRN PROGRAMMING COORDINATOR-C Primary Care Provider, Shane arteaga Provider Active Goals (unrecognized section and content) Goals may be documented in a n alternate section FOR RECORDS PERTAINING TO PATIENTS WHO ARE OR HAVE BEEN ENROLLED IN A CHEMICAL DEPENDENCY/SUBSTANCEABUSE PROGRAM, SOME INFORMATION MAY BE OMITTED. This clinical summary was aggregated from multiple sources. Caution should be exercised in using it in the provision of clinical care. This summary normalizes information from multiple sources, and as a consequence, information in this document may materially change the coding, format and clinical context of patient data. In addition, data may be omitted in some cases. CLINICAL DECISIONS SHOULD BE BASED ON THE PRIMARY CLINICAL RECORDS. [facility]. provides no warranty or guarantee of the accuracy or completeness of information in this document.
== END 2024-10-08 15:21 | disposition home or self-care (01) ==
LOC: CT 15:20
DX: R41.82 Altered mental status, unspecified (principal); W01.190A Fall on same level from slipping, tripping and stumbling with subsequent striking against furniture, initial encounter
CPT/HCPCS: 70450

== ENCOUNTER 2025-02-15 08:02 | Outpatient (OUT) | payer OTHER, SELFPAY ==
--- OUTSIDE RECORDS SUMMARY | 2025-02-04 19:31 | XMS_ITS | Continuity of Care Document ---
Author Organization [facility] Address [address] [place] [address] Phone Care Team Providers Care Ball Truing Machine Operator Name Role Phone Varun Edna GRAY Primary Care Provider [phone] Natalia Roldan DO Attending Provider Care Teams Patient Care Team Team Status: Active Member Role/Relationship Status Dates Edna Bond APRN SLEEP MANAGER-C Primary Care Provider Activ e Visit Care Team Team Status: Inactive Member Role/Relationship Status Dates Edna Bond APRN SLEEP MANAGER-C Primary Care Provider Activ e Start: January 05, 2025 End: January 05, 2025Roberta Arrieta ProviderActiveStart: January 05, 2025 End: January 05, 2025 Visit Care Team Team Status: Inactive Member Role/Relationship Status Dates Edna Bond APRN SLEEP MANAGER-C Primary Care Provider Activ e Start: February 04, 2025 End: February 04, 2025Roberta Arrieta ProviderActiveStart: February 04, 2025 End: February 04, 2025 Chief Complaint and Reason for Visit Chief Complaint Admit Date G81.84 I63.9 February 04, 2025 4:33pm Reason for Visit Admit Date Hyperlipidemia January 05, 2025 1 1:42am Hypertension January 05, 2025 1 1:42am Left hemiparesis January 05, 2025 1 1:42am Right hemisphere, cerebral infarction Oc tober 2024 11:42am Tobacco abuse January 05, 2025 1 1:42am Allergies, Adverse Reactions, Alerts Allergen Type Severity Reaction Last Updated Verified Status lisinopril Adverse Reaction Unknown Cough January 05, 2025 11:07am Yes Active Social History Smoking Status Status Start Date End Date Date of Observa tion Smokes tobacco daily (finding) December 12, 2022 7:05am Observation Status Observation Response Date of Response Legal Sex Male (finding) Sex Assigned At BirthMaleSept1955 Family History Relationship Condition Age at Onset Recorded Date/T nilsa father Myocardial infarction Unknown motherHypothyroidismUnknownbrotherHypertensionUnknownfatherDeceasedUnknown Problems Active Problems Problem Diagnosis/Recorded Date Onset Date Stat Right hemisphere, cerebral infarction January 05 11:36am Unknown Active Hyperlipidemia June 19, 2022 9:14am Unknown Ac tive Tobacco abuse January 05, 2025 4:42pm Unknown A ctive Left hemiparesis January 05, 2025 11:36am Unknown Active Hypertension June 19, 2022 9:14am Unknown Acti ve Clavicle fracture June 20, 2022 6:40am Unknown Active Medications Medication Status Dose Units Route Directions Qty Days Refills S tart Date Stop Date End Date Reason(s) Instructions Adherence Multivitamin (Multi-Vitamins) Tablet Discontinued 1 TAB PO Twice daily June 18, 2022 11:00pmSept2022 7:22amLosartan 50 mg UjwkktTikkkr45 MGPOEvery 2022 11:00pmUnknownLevothyroxine 125 mcg Tablet Nyfsig918ONYCVCywve [facility]2022 11:00pmon a empty stomach 30-60min before breakfastUnknownAtenolol 50 mg RoiqtwYnegoo29OYCJVgekd 2022 11:00pmUnknownPregabalin 150 mg RavymzmGejhuywbvcxc832PYJZHkwlt morning June 18, 2022 11:00pmOctober 2024 11:10amback painOmeprazole 20 mg Tablet,Delayed Release (Dr/Ec)Jeuesb67XRDBSiqbe 2022 11:00pm UnknownOxycodone 5 mg yfpcmgaLqexhxiuxleb7GSQQHXOQY 4-6 HOURS as needed for pain 3070March 2022September 2022 7:22amFracture of clavicleCalcium Carbonate-Vitamin D3 (Calcium 600 + D(3)) 600 mg-10 mcg (400 unit) tablet Baxpoybjcoqs0XWLPPClrnm exfnc650752Ywyrc 2022 11:00pmSept2022 7:22amPregabalin 150 mg webvzvxKtqqfp845ZQYVVnbef dailyOct2024 11:09amback painUnknownVit C,G-Gb-Xdptk-Lutein-Zeaxan (Preservision Areds-2) 250-90-40-1 mg LjjbgexMbihbe9BDASAEalyx morningpt2022 11:00pm UnknownOxycodone-Acetaminophen (Percocet) 5-325 mg rhysmbYjletgqpgwwn9UYGLJU6N70 70pt2022October 2024 11:09amFracture of clavicle Chlorthalidone 25 mg zulkomDfiuff41JUPXFkeuaUutujds 14th, 2025 11:00pmUnknown Cholecalciferol (Vitamin D3) 50 mcg (2,000 unit) kscjwnlAqvtku66OSEKUHvsie January 04, 2025 11:00pmUnknownTrazodone 100 mg yvtsmxCwrjuk446PNVYTxluf at bedtime as neededJanuary 04, 2025 11:00pmUnknownSimvastatin 20 mg tabletActive 20MGPODaily at olrrtkt040Igxffae 14th, 2025 11:00pmUnknown Immunizations Immunization Event Date Not Given Reason Dose Number Spooler Operator Lot Number Reason(s) Given Vaccine Information Statement (VIS) Detail Administration Location COVID-19 Jade Garza ([facility]) March 29 022 Medical Equipment Device Date Implanted Date Explanted Device Deta ils CANCELLOUS 7.5 CRUSHED June 20, 2022 Orthopaedic bone screw, non-bioabsorbable, non-sterileMarch 2022UDI: [id number] bone screw, non-bioabsorbable, non-sterileMarch 2022UDI: [id number] Orthopaedic bone screw, non-bioabsorbable, non-sterileMarch 2022UDI: [id number] bone screw, non-bioabsorbable, non-sterileMarch , 2022UDI: [id number] Orthopaedic bone screw, non-bioabsorbable, non-sterileMarch , 2022UDI: ()[id number] bone screw, non-bioabsorbable, non-sterileMarch , 2022UDI: [id number] Orthopaedic bone screw, non-bioabsorbable, non-sterileMarch , 2022UDI: ()[id number] bone screw, non-bioabsorbable, non-sterileMarch , 2022UDI: ()[id number] Orthopaedic fixation plate, non-bioabsorbable, non-sterileMarch 2022December 12, 2022UDI: ()[id number] Procedures Procedure Date Performed Status MR angio neck wo con February 04, 2025 4:45pm completed Relevant Diagnostic Tests and/or Laboratory Data Diagnostic Imaging Reports Author Fabrice Jones [facility] Date/TimeFebruary 04, 2025 11:00pm [facility] [place] [address] MRI Report Signed Patient: Soto Aldana MR#: [id number] : 1955 Acct:[id number] Age/Sex: 69 / M ADM Date: 5 Loc: Room: Type: [facility] Attending Dr: Natalia Roldan DO Copies to: Natalia Roldan DO~ Ordering Provider: Natalia Roldan DO Date of Service: 02/04/25 MR/MR angio neck wo con: G81.94 - Hemiplegia, unspecified affecting leftnondomina... MR angiogram of neck without contrast INDICATION: Left hemiparesis, right hemisphere cerebral infarct COMPARISON: None FINDINGS: Arch not visualized. Proximal great vessels not visualized. Visualized common carotid arteries patent throughout their course without hemodynamically significant stenosis. Vertebral arteries are codominant and patent throughout their visualized course. MR/MR angio neck wo con IMPRESSION: Negative for hemodynamically significant stenosis or occlusion involving the visualizedcervical vasculature. Impression dictated by: Fabrice Jones M.D. 02/04/2025 11:00 PM Dictation Location: [id number]-[id number] Transcribed By: [facility] 02/04/252299 Dictated By: Fabrice Jones MD 02/04/252257 Signed By: <Electronically signed by Fabrice Jones MD in OV> 02/04/252299 Vital Signs Vital Reading Result Reference Range Collection Date/Time Height 68 [in_i] January 05, 2025 11:10amHeart Rate79 /dmu86-859Kmfmrhx 2024 11:10am Oxygen saturation by Pulse fqzxaoqa75 [facility]95[facility] 11:10amBP Yjhfidxr650 mm[Hg]100-140[facility] 2024 11:10amBP Xnpugfxtr07 mm[Hg]60-100 January 05, 2025 11:10am Advance Directives Advance Directive Response Recorded Date/ Time Advance Directives No June 21 1:04pm Insurance Providers Guarantor Soto Florina Aldana Address [address] [place] [id number] Info.Home Phone: Coverage Status Update:2025 Payer Group Member ID Coverage Type Subscriber Relationship to Subscriber Effective Date Expiration Date [facility] [id number] Florina Aldana Id: [id number] [address] [place] [id number] Home Phone: Self Encounters Encounter Location(s) Arrival/Admit Date Discharge/Departure Date Discharge/Departure Disposition Provider(s) Departed Physician/ Provider Office Visit -[facility] Neurology January 05, 2025 11:42am January 05, 2025 12:16pm Discharged to home care or self care (routine discharge) Natalia Roldan DO Departed Clinical -MRI [facility] February 04, 2025 4:33pm February 04, 2025 4:34pm Discharged to home care or self care (routine discharge) Natalia Roldan , DO Recent Diagnosis Onset Date Admit Date Hyperlipidemia Unknown January 05 11:42am Hypertension Unknown January 05 11:42am Left hemiparesis Unknown January 05, 2 025 11:42am Right hemisphere, cerebral infarction Unknown January 05, 2025 11:42am Tobacco abuse Unknown January 05 11:42am Assessments Diagnosis Onset Date Resolution Status Admit Date Hyperlipidemia acuteOctober 2024 11:42amHypertensionacuteOctober 2024 11:42amLeft hemiparesisacuteOctober 2024 11:42amRight hemisphere, cerebral infarction acuteOctober 2024 11:42amTobacco abuseacuteOctober 2024 11:42am Plan of Treatment [facility]llzu[facility]wrp male who had a fall. I do not have much information on all of this. However a CT of the head was performed and he was found to have a right anterior frontal infarct extending into the right anterior subinsular region along with a right posterior parietal infarct. 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 There was some petechial blood products. This was back on September 30, 2024. With these findings I would have likely sent the patient to the hospital for further assessment. Regardless has now been a couple months he has not had any new events. We will go ahead and get a full stroke workup as he has bilateral infarcts so certainly there is concern for cardioembolic disease versus bilateral carotid disease versus other. He has not been taking any antiplatelet therapy. He needs to start on aspirin 81 mg daily. He has hypercholesterolemia but was not on statin. His cholesterol 198 LDL 148 HDL 43 triglycerides 255. Will start him on statin. His TSH was high at 7.9 but then was treated. Will leave that to the PCP but it needs to be evaluated over time. He does have significant stroke risk factors: Age, male, hypertension, hyperlipidemia, tobacco abuse. He needs to stop smoking. He was counseled that any new stroke symptoms he needs to go to the emergency room 911. plan: Full stroke work up MRI of the brain and MRA of the head and neck to assess the above further and look for any stenosis Echocardiogram He may need a JOHN He may need a speed reading teacher-we will refer to cardiology for any atrial fibrillation workup since this was bilateral infarcts Start on aspirin 81 mg daily Started on statin Quit smoking. Head CT was reviewed He was offered physical therapy but wants to do exercises on his own for the left hemiparesis Will need to repeat his cholesterol after the next visit to see if the statin is working and how well it is working He was counseled he needs to be exercise at least 5 days of the week He was counseled any new strokelike symptoms as 911 to the emergency room The diagnosis was all discussed with the patient.?? All questions were answered and they agreed with the treatment plan.?? Patient will call if there are any new issues or questions. Future Tests Future scheduled test information is unavailable Pending Tests Test Name Ordered Date Scheduled Date ECH echo transthoracic January 05, 2025 11:08a m MR angio head [facility] 2024 11:06amMR head/brain [facility] 2024 11:06am Future Visits Future appointment information is unavailable Future Procedures Future procedure information is unavailable Future Medications Future medication information is unavailable Patient Instructions Patient instructions are unavailable
--- OUTSIDE RECORDS SUMMARY | 2025-02-15 08:06 | XMS_ITS | CCD ---
Author Organization [facility] CliniSywy Care Team Providers Care Incinerator Attendant Name Role Phone DR PERICO MURPHY Primary Care Unavailable DUYEN, NESSA Admitting Unavailable DUYEN, NESSA Attending Unavailable DR JULIA GAN Consulting Unavailable DUYEN, NESSA Consulting Unavailable Shane, Getachew Unavailable Shane DO Getachew A Attending Provider [phone] Duyen, PATIENT INTAKE REPRESENTATIVE Nessa Primary Care Provider [phone] Duyen, PATIENT INTAKE REPRESENTATIVE Nessa Primary Care Provider Shane DO Getachew A Attending Provider [phone] Duyen, PATIENT INTAKE REPRESENTATIVE Nessa Primary Care Provider Shane DO Getachew A Attending Provider Duyen, PATIENT INTAKE REPRESENTATIVE Nessa Attending Provider [phone] Shane, Getachew A Admitting Unavailable Duyen, Nessa [...] Shane, Getachew A Attending Unavailable Getachew Connolly A Admitting Unavailable Nessa Geller Primary Care Unavailable Getachew Connolly Attending Unavailable Getachew Connolly A Admitting Unavailable Nessa Geller Primary Care Unavailable Getachew Connolly A Attending Unavailable Getachew Connolly A Admitting Unavailable Nessa Geller Primary Care Unavailable Getachew Connolly Attending Unavailable NESSA GELLER Primary Care Physician Nessa Geller APRN Primary Care Provider Natalia Roldan DO Attending Provider FERDINAND ASCENCIO Admitting Unavailable FERDINAND ASCENCIO Attending Unavailable FERDINAND ASCENCIO Referring Unavailable Allergies Allergy ClassificationReported Allergen(s)Allergy TypeDate of OnsetReaction(s) Facility (9 sources)Amino AcidsDrug Nvyshbd80-38-1184FrfblNuf [facility] Repository (1 source)LisinoprilDrug Fzvibsj08-40-2322PqjaxwrddPike [facility] Repository Medications Current Medications MedicationDrug Class(es)DatesSig (Normalized)Sig (Original)atenolol 50 mg oral tablet (9 sources)beta-Adrenergic BlockerStart: 97-08-8091brog 1 tablet by mouth once daily in the morningAtenolol 50 mg Tablet Active 50 MG PO Every morning June 19, 2022 12:00am Complies with drug therapychlorthalidone 25 mg oral tablet (1 source)Thiazide-like DiureticStart: 94-97-6488lfch 1 tablet by mouth once dailyChlorthalidone 25 mg tablet Active 25 MG PO Daily January 05, 2025 12:00am Complies with drug therapycholecalciferol 0.05 mg oral capsule (1 source)Vitamin DStart: 66-58-5965ptrr 1 capsule by mouth once daily Cholecalciferol (Vitamin D3) 50 mcg (2,000 unit) capsule Active 50 MCG PO Daily January 05, 2025 12:00am Complies with drug therapyDiclofenac (3 sources)Nonsteroidal Anti-inflammatory DrugStart: 38-73-2146Emtvtyyi 1 % as directed Externally Sep, ActiveStart: 21-06-6541Ixqasfol 1 % as directed Externally Sep, Activelevothyroxine sodium 0.125 mg oral tablet (9 sources)l-ThyroxineStart: 48-94-9755fwkc 1 tablet by mouth once daily in the morningLevothyroxine 125 mcg Tablet Active 125 MCG PO Every morning June 19, 2022 12:00am on a empty stomach 30-60min before breakfast Complies with drug therapylosartan potassium 50 mg oral tablet (9 sources)Angiotensin 2 Receptor BlockerStart: 75-83-1009ldbm 1 tablet by mouth once daily in the morningLosartan 50 mg Tablet Active 50 MG PO Every morning June 19, 2022 12:00am Complies with drug therapymeloxicam 15 mg oral tablet (4 sources)Nonsteroidal Anti-inflammatory DrugStart: 28-72-7968nzok 1 tablet by mouth every twenty-four hoursMeloxicam 15 MG 1 tablet Orally Once a day for 30 days July, Activeomeprazole 20 mg delayed release oral tablet (9 sources)Proton Pump InhibitorStart: 80-11-2329xzzv 1 tablet by mouth once daily in the morningOmeprazole 20 mg Tablet,Delayed Release (Dr/Ec) Active 20 MG PO Every morning June 19, 2022 12:00am Complies with drug therapypregabalin 150 mg oral capsule (10 sources)Start: 16-86-6347jgfk 1 capsule by mouth twice dailyPregabalin 150 mg capsule Active 150 MG PO Twice daily January 05, 2025 12:09pm Complies with drug therapyStart: 06-19-2022 End: 77-86-8981wkut 1 capsule by mouth once daily in the morningPregabalin 150 mg Capsule Discontinued 150 MG PO Every morning June 19, 2022 12:00am January 05, 2025 12:10pmStart: 68-09-4788zfau 150 mg by mouth twice dailyPregabalin Active 150 MG PO Twice daily June 19, 2022 12:00amtraZODone hydrochloride 100 mg oral tablet (1 source)Serotonin Reuptake InhibitorStart: 20-80-8832glkv 1 tablet by mouth once daily at bedtime as neededTrazodone 100 mg tablet Active 100 MG PO Daily at bedtime as needed January 05, 2025 12:00am Complies with drug therapyVit C,K-Xg-Ucpmr-Lutein-Zeaxan (Preservision Areds-2) 250-90-40-1 mg Capsule (3 sources)Start: 86-59-3545Ryy C,P-Nj-Dufcn-Lutein-Zeaxan (Preservision Areds- 2) 250-90-40-1 mg Capsule Active 1 CAP PO Every morning December 06, 2022 12:00am Complies with drug therapyStart: 33-37-7083Zyy C,F-Xx-Vxedc-Lutein-Zeaxan (Preservision Areds-2) 250-90-40-1 mg Capsule Active 1 CAP PO Every morning December 06, 2022 12:00am Completed/Discontinued Medications MedicationDrug Class(es)DatesSig (Normalized)Sig (Original)acetaminophen 325 mg / oxyCODONE hydrochloride 5 mg oral tablet (4 sources)Opioid AgonistStart: 12-12-2022 End: 62-93-2332pikn 1 tablet by mouth every four hoursOxycodone-Acetaminophen (Percocet) 5-325 mg tablet Discontinued 1 TAB PO Q4H 20 7 December 12, 2022 January 05, 2025 12:09pmStart: 05-48-7181wdld 1 tablet by mouth every six hoursoxyCODONE-Acetaminophen 5-325 MG 1 tablet as needed Orally every 6 hrs for 7 days [facility] # [id number] Jun, Activecalcium carbonate 1500 mg / cholecalciferol 0.01 mg oral tablet (9 sources)Vitamin DStart: 06-20-2022 End: 79-63-3556qgbe 2 tablets by mouth twice dailyCalcium Carbonate-Vitamin D3 (Calcium 600 + D(3)) 600 mg-10 mcg (400 unit) tablet Discontinued 2 TAB PO Twice daily 240 60 June 20, 2022 12:00am December 06, 2022 8:22amMultivitamin (Multi-Vitamins) Tablet (9 sources)Start: 06-19-2022 End: 32-75-0371pqrd 1 tablet by mouth twice dailyMultivitamin (Multi-Vitamins) Tablet Discontinued 1 TAB PO Twice daily June 19, 2022 12:00am December 06, 2022 8:22amStart: 78-32-7490lfgr 1 tablet by mouth twice dailyMultivitamin (Multi-Vitamins) Tablet Active 1 TAB PO Twice daily June 19, 2022 12:00am oxyCODONE hydrochloride 5 mg oral capsule (9 sources)Opioid AgonistStart: 06-20-2022 End: 51-32-5697obws 1 capsule by mouth every four to six hours as needed for painOxycodone 5 mg capsule Discontinued 5 MG PO EVERY 4-6 HOURS as needed for pain 30 7 June 20, 2022 December 06, 2022 8:22am Problems Problem ClassificationProblemDateDocumented DateEpisodic/ChronicE Codes: Fall (1 source)Unspecified fall, initial encounter; Translations: [UNSPECIFIED FALL INITIAL ENCOUNTER]Onset: 48-53-8952IqvvctfdFaqxcwyl of upper limb (12 sources)Displaced fracture of lateral end of left clavicle, initial encounter for closed fracture; Translations: [Displaced fracture of shaft of left clavicle, initial encounter for closed fracture]Onset: 51-46-0917Jtrttrgv Other fractures (5 sources)Displaced fracture of shaft of left clavicle, subsequent encounter for fracture with routine healingEpisodicOther injuries and conditions due to external causes (4 sources)Unspecified injury of left shoulder and upper arm, initial encounter; Translations: [UNS INJ LT SHOULDER UP ARM INITIAL]Onset: 96-77-5354Lgxzqhpi Residual codes; unclassified (5 sources)Other specified postprocedural statesEpisodicSubstance-related disorders (8 sources)Smoker; Translations: [Nicotine dependence, unspecified, uncomplicated]ChronicUnclassified (1 source)Pain due to internal orthopedic prosthetic devices, implants and grafts, initial encounter; Translations: [Pain due to internal orthopedic prosthetic devices, implants and grafts, initial encounter]Onset: 12-12-2022 Unclassified (1 source)Encounter for screening for malignant neoplasm of respiratory organs; Translations: [Encounter for screening for malignant neoplasm of respiratory organs]Onset: 23-37-2587Hiurtlfjslix (1 source)Encounter for other preprocedural examination; Translations: [Encounter for other preprocedural examination]Onset: 86-56-2809Tnpgvxitltii (1 source)Displaced fracture of shaft of left clavicle, subsequent encounter for fracture with routine healing; Translations: [Displaced fracture of shaft of left clavicle, subsequent encounter for fracture with routine healing]Onset: 86-63-4704Uazleevnvmle (1 source)Displaced fracture of shaft of left clavicle, initial encounter for closed fracture; Translations: [Displaced fracture of shaft of left clavicle, initial encounter for closed fracture]Onset: 03-46-3177Nwzhqdaruurs (1 source)Encounter for preprocedural laboratory examination; Translations: [Encounter for preprocedural laboratory examination]Onset: 06-19-2022 Unclassified (1 source)Other specified disorders of bone, shoulder; Translations: [Other specified disorders of bone, shoulder]Onset: 06-19-2022 Results Test NameValueInterpretationReference RangeFacilityCT Chest, Low Dose Screening on 89-59-8642DT Chest, Low Dose ScreeningExam Date/Time: 01/13/2025 09:05 EDT Reason for Exam: Z12.2 Report IMPRESSION: LUNG RADS CATEGORY 1: NEGATIVE. NO NODULES AND/OR DEFINITELY BENIGN NODULES. CONTINUE ANNUAL SCREENING WITH SCREENING CT CHEST IN 12 MONTHS. 4.1 X 4.4 CM ASCENDING THORACIC AORTIC ANEURYSM. LOW DOSE CT IMAGING OF THE CHEST WITHOUT INTRAVENOUS CONTRAST MEDIUM. HISTORY: TOBACCO USE. TECHNICAL FACTORS: Low dose CT imaging of the chest was obtained and formatted as 2.5 mm contiguous axial images from the thoracic inlet through the adrenal glands. Sagittal and coronal reconstructions obtained during postprocessing. Intravenous contrast medium: None. Comparison: 12/09/2023 FINDINGS: Right lung: No nodules, masses, consolidation, pleural effusion, pneumothorax. Emphysema. Left lung: No nodules, masses, consolidation, pleural effusion, pneumothorax. Emphysema. Lymph nodes: No hilar, mediastinal, or axillary lymph node enlargement. Thoracic aorta: AP and transverse diameter ascending thoracic aorta at level of pulmonary arterial bifurcation measures 4.1 x 4.4 cm. Cardiac: Size normal. No pericardial effusion. Coronary artery calcification Upper abdomen:Limited imaging upper abdomen shows no gross anomaly. Musculoskeletal:No osteoblastic, and no osteolytic lesions. All CT scans at this facility use dose modulation, iterative reconstruction, and/or Report weight based dosing when appropriate to reduce radiation dose to as low as reasonably achievable. Ordering Provider: , FINAL REPORT Dictated: 01/13/2025 12:14 pm Ayan Hooper MD Signed (Electronic Signature): 01/13/2025 12:14 pm Signed by: Ayan Hooper MD Transcribed by: RADHA Technologist: [facility] HospitalAmphetamine Screen Ql (U)Ordered By: DANNA RITCHIE on 44-05-3364Ycokhluwmrbc Ql (U)Negative NegativePike Community HospitalBarbiturates [Presence] in Urine by Screen methodOrdered By: DNANA RITCHIE on 46-26-9230Aaolhozczort Screen Ql (U) NegativeNegativePike Community HospitalBenzodiazepines Screen Ql (U) Ordered By: DANNA RITCHIE on 05-99-4067Lwsnppwemnmijky Ql (U)NegativeNegative [facility] HospitalBenzoylecgonine [Presence] in Urine by Screen methodOrdered By: DANNA RITCHIE on 72-16-7829Tktibuxgqoosuev Screen Ql (U) NegativeNegOhioHealth Doctors HospitalCannabinoids [Presence] in Urine by Screen methodOrdered By: DANNA RITCHIE on 15-45-1859Dlvwzklspbbh Screen Ql (U)PositiveNegOhioHealth Doctors HospitalComment on above:These are unconfirmed results and should not be used for legal purposes. Drug Cut-Off Concentration: AMPH 1000 ng/mL YULI 200 ng/mL MERISSA 200 ng/mL COCM 300 ng/mL OP 300 ng/mL PCP 25 ng/mL THC 20 ng/mLDrug Screen,Urineon 85-25-0852Vapouvdeyrh Screen,UrineNegativeNormalNegOhioHealth Doctors HospitalComment on above:Performed By: #### URDS ####[address] [place] [address] USABarbiturate Screen,UrineNegativeNormalNegative [facility] HospitalComment on above:Performed By: #### URDS ####[facility] [place] [address] [place] Benzodiazepines Screen,UrineNegativeNormalNegOhioHealth Doctors HospitalComment on above:Performed By: #### URDS ####[address] [place] [id number] USACannabinoid Screen,UrinePositiveHigh OhioHealth Doctors HospitalComment on above:Result Comment: These are unconfirmed results and should not be used for legal purposes. Drug Cut-Off Concentration: AMPH 1000 ng/mL YULI 200 ng/mL MERISSA 200 ng/mL COCM 300 ng/mL OP 300 ng/mL PCP 25 ng/mL THC 20 ng/mL PERFORMED BY: [place] [address] DRIVER RAFITA WHITEHEAD M.D.Performed By: #### URDS ####[facility] [address] [place] [address] USACocaine Screen,UrineNegativeNormalNegative [facility] HospitalComment on above:Performed By: #### URDS ####[facility] [address] [place], [place] [id number] USAOpiate Screen,UrineNegativeCatheys ValleyNegativePike Community HospitalComment on above:Performed By: #### URDS ####[facility] [address] [place] [address] USAPhencyclidine Screen,UrineNegativeNormalNegative [facility] HospitalComment on above:Performed By: #### URDS ####[facility] [address] [place] [address] USAOpiates [Presence] in Urine by Screen methodOrdered By: DANNA RITCHIE on 12-12-2022 Opiates Screen Ql (U)NegativeNegOhioHealth Doctors Hospital Phencyclidine Screen Ql (U)Ordered By: DANNA RITCHIE on 58-17-3941Nsgcfueytmhcq Ql (U)NegativeNegOhioHealth Doctors HospitalCT lung screeningon 09-91-0988DC lung screeningSCCI HOS[facility] Main Home [address] [place] [address] CT Scan Report Signed Patient: Soto Aldana MR#: [id number] : 1955 Acct:[id number] Age/Sex: 67 / M ADM Date: 12/11/22 Loc: [facility] Room: Type: [facility] Attending Dr: Nessa Geller APRN, DISTRICT SALES COORDINATOR-C Copies to: Nessa Geller APRN, SERENA Ordering Provider: Nessa Geller APRN, CNP Date [...] Jeevan Gurrola M.D.12/11/2022 4:14 PM Dictation Location: [place] [address] Transcribed By: [facility] 12/11/22 1614 Dictated By: Jeevan Gurrola DO 12/11/22 1609 Signed By: 12/11/22 1614NormRegency Hospital ToledoBasic Metabolic Panelon 83-20-9407Krptd gap [Moles/Vol]13.4 mmol/LNormal6.0-15.0[facility] HospitalComment on above:Performed By: #### CBC, BMP ####[facility] [address] [place] [address] USACalcium [Mass/Vol]9.2 mg/dLNormal8.6-10.3FSycamore Medical CenterComment on above:Result Comment: PERFORMED BY: [facility] [address] [place] [address] DRIVER JIANLAN SUN M.D.Performed By: #### CBC, BMP ####[facility] [place] [address] USAChloride [Moles/Vol]108 mmol/LHigh 98-107[facility] HospitalComment on above:Performed By: #### CBC, BMP ####[facility] [place] [address] USACO2 [Moles/Vol]28.7 mmol/YQwqdet26.0-31.0[facility] HospitalComment on above:Performed By: #### CBC, BMP ####[address] [place] [address] USACreatinine [Mass/Vol]1.15 mg/dLNormal0.70-1.30 [facility] HospitalComment on above:Performed By: #### CBC, BMP ####[address] [address] [place] GFR/1.73 sq M.predicted MDRD (S/P/Bld) [Vol rate/Area]mL/min/{1.73_m2}Normal [facility] HospitalComment on above:Performed By: #### CBC, BMP ####[address] [address] USAGlucose [Mass/Vol]70 mg/fCBgpcfb78-540MrdawdznyPike Community HospitalComment on above: Result Comment: Random Glucose Reference Range is dependent on time and content of last meal. Glucose of more than 200 mg/dL in a nonstressed, ambulatory subject supports the diagnosis of Diabetes Mellitus. ADA recommended reference rangePerformed By: #### CBC, BMP ####[address] [place] [address] USAPotassium [Moles/Vol] 5.1 mmol/LNormal3.5-5.1FSycamore Medical CenterComment on above: Performed By: #### CBC, BMP ####[address] [place] [address] USASodium [Moles/Vol]145 mmol/QSvtnkm245-186UpeqdrefzPike Community HospitalComment on above:Performed By: #### CBC, BMP ####[facility] [address] [place] [address] USAUrea nitrogen [Mass/Vol]18 mg/dLNormal7-25[facility] HospitalComment on above:Performed By: #### CBC, BMP ####[facility] [address] [place] [address] USABasophils Auto (Bld) [#/Vol]Ordered By: Getachew Connolly on 63-39-6465Dbwwwqvun (Bld) [#/Vol]0.1 10*3/uL0.0-0.2FSycamore Medical CenterBasophils/100 WBC Auto (Bld)Ordered By: Getacehw Connolly on 43-79-7911Vvndlqcqo/100 WBC (Bld)0.9 %.[facility] HospitalCalcium [Mass/volume] in Serum or PlasmaOrdered By: Getachew Connolly on 11-68-8560Wnihrfr [Mass/Vol]9.2 mg/dL8.6-10.3FSycamore Medical CenterCarbon dioxide, total [Moles/volume] in Serum or PlasmaOrdered By: Getachew Connolly on 12-06-2022 CO2 [Moles/Vol]28.7 mmol/L21.0-31.0[facility] HospitalChloride [Moles/volume] in Serum or PlasmaOrdered By: Getachew Connolly on 82-15-8966Eeusutvn [Moles/Vol]108 mmol/O70-176JgrimsnzcPike Community HospitalComplete Blood Count Auto Diffon 90-55-7654Ukqfxecou (Bld) [#/Vol]0.1 10*3/uLNormal0.0-0.2 [facility] HospitalComment on above:Result Comment: PERFORMED BY: [facility] [address] [place] [address] DRIVER RAFITA WHITEHEAD M.D.Performed By: #### CBC, BMP #### [facility] [address] [place] [address] USABasophils/100 WBC (Bld)0.9 %Normal.[facility] HospitalComment on above:Performed By: #### CBC, BMP #### [facility] [address] [place] [address] USAEosinophils (Bld) [#/Vol]0.4 10*3/uLNormal0.0-0.45 [facility] HospitalComment on above:Performed By: #### CBC, BMP #### [place] [address] USAEosinophils/100 WBC (Bld)5.3 %Normal.[facility] HospitalComment on above:Performed By: #### CBC, BMP #### [place] [address] USAErythrocyte distribution width (RBC) [Ratio]14.0 %Normal 12.0-14.8[facility] HospitalComment on above:Performed By: #### CBC, BMP #### [place] [address] USAHematocrit (Bld) [Volume fraction]43.1 %Fjggbr84.8-50.0 [facility] HospitalComharper university hospital on above:Performed By: #### CBC, BMP #### [place] [address] USAHemoglobin (Bld) [Mass/Vol]14.3 g/eANprpdu42.0-17.0 [facility] HospitalComment on above:Performed By: #### CBC, BMP #### [place] [address] USALymphocytes (Bld) [#/Vol]2.4 10*3/uLNormal1.00-4.8 [facility] HospitalComment on above:Performed By: #### CBC, BMP #### [place] [address] USALymphocytes/100 WBC (Bld)35.8 %Normal.[facility] HospitalComment on above:Performed By: #### CBC, BMP #### [place] [address] USAMCH (RBC) [Entitic mass]33.7 yjVvbmwr54.5-35.2FSycamore Medical CenterComment on above:Performed By: #### CBC, BMP #### [facility] [address] [place] [address] USAMCV (RBC) [Entitic vol]101.3 hRWxkw25.5-101P[facility] HospitalComment on above:Performed By: #### CBC, BMP #### [place] [address] USAMean Corpuscular HGB Conc33.3 g/eIJziaqd05.5-35.6FSycamore Medical CenterComment on above:Performed By: #### CBC, BMP #### [place] [address] USAMonocytes (Bld) [#/Vol]0.7 10*3/uLNormal0.0-0.8[facility] HospitalComment on above:Performed By: #### CBC, BMP #### [place] [address] USAMonocytes/100 WBC (Bld)9.8 %Normal.[facility] HospitalComment on above:Performed By: #### CBC, BMP #### [place] [address] USANeutrophils (Bld) [#/Vol]3.3 10*3/uLNormal1.8-7.7FSycamore Medical CenterComment on above:Performed By: #### CBC, BMP #### [place] [address] USANeutrophils/100 WBC (Bld)48.2 %Normal.[facility] HospitalComment on above:Performed By: #### CBC, BMP #### [place] [address] USANRBC%0.1 /100{WBC}Normal0-0.5FSycamore Medical CenterComment on above:Performed By: #### CBC, BMP #### [facility] [address] [place] [address] USAPlatelet mean volume (Bld) [Entitic vol]7.3 fLNormal 6.6-10.1FSycamore Medical CenterComment on above:Performed By: #### CBC, BMP #### [facility] [address] [place] [address] USAPlatelets (Bld) [#/Vol]294 10*3/xXGfckmy034-050YhfnjdcppPike Community HospitalComment on above:Performed By: #### CBC, BMP #### [facility] [address] [place] [address] USARBC (Bld) [#/Vol]4.26 10*6/uLNormal3.90-5.60[facility] HospitalComment on above:Performed By: #### CBC, BMP #### [facility] [address] [place] [address] USAWBC (Bld) [#/Vol]6.8 10*3/uLNormal4.1-10.5FSycamore Medical CenterComment on above:Performed By: #### CBC, BMP #### [facility] [address] [place] [address] USACreatinine [Mass/volume] in Serum or PlasmaOrdered By: Getachew Connolly on 00-56-1497Salogzuvuj [Mass/Vol]1.15 mg/dL0.70-1.30[facility] HospitalEosinophils Auto (Bld) [#/Vol]Ordered By: Getachew Connolly on 34-94-6734Mkjkbnetdec (Bld) [#/Vol]0.4 10*3/uL0.0-0.45[facility] HospitalEosinophils/100 WBC Auto (Bld)Ordered By: Getachew Connolly on 81-31-5852Ebcvdcvhqse/100 WBC (Bld)5.3 %.[facility] Erythrocyte distribution width Auto (RBC) [Ratio]Ordered By: Getachew Connolly on 86-83-0178Dywonopkbyj distribution width (RBC) [Ratio]14.0 %12.0-14.8[facility] HospitalGlucose [Mass/volume] in Serum or PlasmaOrdered By: Getachew Connolly on 20-89-2783Whupwzr [Mass/Vol]70 mg/rL31-560LjrigsrguPike Community HospitalComment on above:ADA recommended reference rangeRandom Glucose Reference Range is dependent on time and content of last meal. Glucose of more than 200 mg/dL in a nonstressed, ambulatory subject supports the diagnosisof Diabetes Mellitus.Hematocrit Auto (Bld) [Volume fraction]Ordered By: Getachew Connolly on 29-50-3940Xmhdpylsjr (Bld) [Volume fraction]43.1 %38.8-50.0[facility] HospitalHemoglobin [Mass/volume] in BloodOrdered By: Getachew Connolly on 71-36-3941Tlyjhrlpbi (Bld) [Mass/Vol]14.3 g/dL13.0-17.0[facility] HospitalLeukocytes [#/volume] corrected for nucleated erythrocytes in Blood by Automated counOrdered By: Getachew Connolly on 12-06-2022 WBC corrected for nucl RBC Auto (Bld) [#/Vol]6.8 10*3/uL4.1-10.5FSycamore Medical CenterLymphocytes Auto (Bld) [#/Vol]Ordered By: Getachew Connolly on 72-61-1876Yfkyqclhejc (Bld) [#/Vol]2.4 10*3/uL1.00-4.8[facility] HospitalLymphocytes/100 WBC Auto (Bld)Ordered By: Getachew Connolly on 64-73-8697Qvkkdudbhph/100 WBC (Bld)35.8 %.[facility] HospitalH Auto (RBC) [Entitic mass]Ordered By: Getachew Connolly on 47-30-2841LTA (RBC) [Entitic mass]33.7 pg27.5-35.2FSycamore Medical CenterMCHC Auto (RBC) [Mass/Vol]Ordered By: Getachew Connolly on 64-30-0922ESBQ (RBC) [Mass/Vol]33.3 g/dL 32.5-35.6FSycamore Medical CenterMCV Auto (RBC) [Entitic vol]Ordered By: Getachew Connolly on 47-54-9716FVR (RBC) [Entitic vol]101.3 fL83.5-101[facility] HospitalMonocytes Auto (Bld) [#/Vol]Ordered By: Getachew Connolly on 26-00-1187Vegfutlhn (Bld) [#/Vol]0.7 10*3/uL0.0-0.8[facility] HospitalMonocytes/100 WBC Auto (Bld)Ordered By: Getachew Connolly on 12-06-2022 Monocytes/100 WBC (Bld)9.8 %.[facility] HospitalNeutrophils Auto (Bld) [#/Vol]Ordered By: Getachew Connolly on 40-13-2544Wzfmkgmtexh (Bld) [#/Vol]3.3 10*3/uL1.8-7.7FSycamore Medical CenterNeutrophils/100 WBC Auto (Bld) Ordered By: Getachew Connolly on 47-35-6227Eotdvhjzlwm/100 WBC (Bld)48.2 %.[facility] HospitalNo Panel InformationOrdered By: Getachew Connolly on 41-08-6432Pnzrlkpop GFR (CKD-EPI)> 60.0 mL/MinPike Community Hospital Pharmacy Creatinine Clearance (ChemN/AFSycamore Medical CenterNucleated erythrocytes [Presence] in Blood by Automated countOrdered By: Getachew Connolly on 45-65-2585Wbqxgnjsx RBC Auto Ql (Bld)0.1 /100{WBC}0-0.5FSycamore Medical CenterPlatelet mean volume Auto (Bld) [Entitic vol]Ordered By: Getachew Connolly on 82-68-4126Hgnhwxol mean volume (Bld) [Entitic vol]7.3 fL6.6-10.1 [facility] HospitalPlatelets Auto (Bld) [#/Vol]Ordered By: Getachew Connolly on 41-20-4555Mpopsurje (Bld) [#/Vol]294 10*3/uM930-030FdmfbmopkPike Community HospitalPotassium [Moles/volume] in Serum or PlasmaOrdered By: Getachew Connolly on 92-87-3993Bkqtmcdgy [Moles/Vol]5.1 mmol/L3.5-5.1FSycamore Medical CenterRBC Auto (Bld) [#/Vol]Ordered By: Getachew Connolly on 12-50-0378DUF (Bld) [#/Vol]4.26 10*6/uL3.90-5.60L[facility] Hospitalerum or plasma anion gap determinationOrdered By: Getachew Connolly on 05-51-3902Jgbog gap [Moles/Vol]13.4 mmol/L6.0-15.0L[facility] Hospitalodium [Moles/volume] in Serum or PlasmaOrdered By: Getachew Connolly on 00-34-4763Iryzvx [Moles/Vol]145 mmol/T884-044IkekjmffdPike Community HospitalUrea nitrogen [Mass/volume] in Serum or PlasmaOrdered By: Getachew Connolly on 89-93-3160Mgbb nitrogen [Mass/Vol]18 mg/dL7-25Pike Community HospitalWBC Auto (Bld) [#/Vol]Ordered By: Getachew Connolly on 13-19-5487YHB (Bld) [#/Vol]6.8 10*3/uL 4.1-10.5FSycamore Medical CenterXR clavicle LT*on 04-72-9450SS clavicle LT*[facility] [place] [address] XRay Report Signed Patient: Soto Aldana MR#: [id number] 986 : 1955 Acct:[id number] Age/Sex: 67 / M ADM Date: 12/04/22 [place] [facility] [place]: Type: [facility] Attending Dr: Getachew Connolly DO Copies [...] Rita Klein M.D.12/04/2022 3:24 PM Dictation Location: [place] [address] Transcribed By: [facility] 12/04/22 1524 Dictated By: Rita Klein MD 12/04/22 1522 Signed By: 12/04/22 1524NoPomerene HospitalXR clavicle LT*[facility] [employer] Other XR clavicle LT*[facility] [employer] Other XR clavicle LT*[address] [place] [address] [employer] Other XR clavicle LT*[place], [place] [address]Dgrcl [employer]ong[employer] Other XR clavicle LT*XRay [facility] [employer] Other XR clavicle LT*[facility] [employer] Other XR clavicle LT*Patient: Soto Aldana MR#: [id number] [facility] [employer] Other XR clavicle LT*[address] [employer] Other XR clavicle LT*: 1955 Acct:[id number] [employer] Other XR clavicle LT*Age/Sex: 67 / M ADM Date: 12/04/22[place] [employer] Other XR clavicle LT*Loc[place] [facility] [place] [place]: Type: [facility] [employer] Other XR clavicle LT*Attending Dr: Getachew Connolly [employer] Other XR clavicle LT*Copies to: Getachew Connolly [employer] Other XR clavicle LT*Ordering Provider: Getachew Connolly DO [employer] Other XR clavicle LT*Date of Service: 12/04/22[place] [employer] Other xr clavicle LT* XR/XR clavicle LT*: Closed displaced fracture of shaft of left clavicleWye Mills [employer] Other xr clavicle LT*with rouWye [place] [employer] Other xr clavicle LT*LEFT CLAVICLE - 2 viewsWye [place] [employer] Other xr clavicle LT*CLINICAL HISTORY: Follow-up clavicle fractureWye Mills [employer] Other xr clavicle LT*COMPARISON: 10/02/2022[place] [employer] Other xr clavicle LT*AP views with neutral and upward projection were obtained. There is redemonstration of a plate andW[place] [employer] Other xr clavicle LT*screws along the superior aspect of the distal clavicle. One of the screws does not traverse [facility] Medical CenterOrchard Labs Other xr clavicle LT*plate. The underlying fracture is unchanged in alignment. No new fracture or dislocation [facility] [employer] Other xr clavicle LT*identified. The soft tissues are within normal limits.[employer] Other xr clavicle LT* XR/XR clavicle LT* [employer] Other xr clavicle LT*IMPRESSION:[employer] Other xr clavicle LT*STABLE DISTAL CLAVICLE FRACTUREWye Mills [employer]ong[employer] Other xr clavicle LT*Impression dictated by: Rita Klein M.D.12/04/2022 3:24 [facility] R[employer] Other xr clavicle LT*Dictation Location: [address] [employer] Other xr clavicle LT*Transcribed By: CHIP 12/04/[address] [place] [address] [employer] Other XR clavicle LT*Dictated By: Rita Klein MD 12/04/[address] [place] [address] [employer] Other XR clavicle LT*Signed By:[facility] [employer] Other XR clavicle LT*12/04/[address] [place] [address] [employer] Other XR clavicle LT*on 03-54-9312QH clavicle LT*[facility] [address] [place] [address] XRay Report Signed Patient: Soto Aldana MR#: [id number] 986 : 1955 Acct:[id number] Age/Sex: 66 / M ADM Date: 10/02/22 Loc: [facility] [place] Room: Type: [facility] Attending Dr: Getachew Connloly DO Copies to: Getachew Connolly DO Ordering [...] Jeevan Gurrola M.D.10/02/2022 2:35 PM Dictation Location: [place] [address] Transcribed By: [facility] 10/02/22 1435 Dictated By: Jeevan Gurrola DO 10/02/22 1434 Signed By: 10/02/22 1435[facility] CenterXR clavicle LT*[facility] [employer] Other XR clavicle LT*[facility] [employer] Other XR clavicle LT*[address] [place] [address] [employer] Other XR clavicle LT*FATUMA Miranda [address]Jrejv [employer] Other XR clavicle LT*XRay ReportWye [place] [employer] Other XR clavicle LT*SignedW[place] [employer] Other XR clavicle LT*Patient: Soto Aldana MR#: [id number] [facility] [employer] Other XR clavicle LT*[address] [employer] Other XR clavicle LT*: 1955 Acct:[id number] [employer] Other XR clavicle LT*Age/Sex: 66 / M ADM Date: 10/02/22[place] [employer] Other XR clavicle LT*Loc[place] [facility] [place]: Type: [facility] [employer] Other XR clavicle LT*Attending Dr: Getachew Connolly [facility] [employer] Other XR clavicle LT*Copies to: Getachew Connolly, [employer] Other XR clavicle LT*Ordering Provider: Getachew Connolly, [place] [employer] Other XR clavicle LT*Date of Service: 10/02/22[place] [employer] Other XR clavicle LT* XR/XR clavicle LT*: Closed displaced fracture of shaft of left clavicleWye Mills [employer] Other XR clavicle LT*with [facility] Medical CenterTakWak [employer] Other XR clavicle LT*2 views LEFT clavicle plain [facility] [employer] Other XR clavicle LT*COMPARISON: 08/21/22[place] [employer] Other XR clavicle LT*HISTORY: ORIF LEFT clavicleWye Mills [employer] Other XR clavicle LT*ACUTE FINDINGS: Stable bony alignment. [employer] Other XR clavicle LT*DEGENERATIVE CHANGE: UnremarkableWye [place] [employer] Other XR clavicle LT*SOFT TISSUE FINDINGS: UnremarkableliveMag.ro Other XR clavicle LT*POSTOP CHANGES: Stable hardware with fracture of single screw.[employer] Other XR clavicle LT*BONE MINERALIZATION: AdequateWye Mills [employer] Other XR clavicle LT* XR/XR clavicle LT* [employer] Other XR clavicle LT*IMPRESSION: Stable findingsWye Mills [employer] Other XR clavicle LT*Impression dictated by: Jeevan Gurrola M.D.10/02/2022 2:35 PMNbarnes-[facility] [employer] Other XR clavicle LT*Dictation Location: [address] [employer] Other XR clavicle LT*Transcribed By: CHIP 10/02/[address] [place] [address] [employer] Other XR clavicle LT*Dictated By: Jeevan Gurrola DO 10/02/22 [facility] CenterAllani Other XR clavicle LT*Signed By:[employer] Other XR clavicle LT*10/02/[address] [place] [address] [employer] Other XR clavicle LT*on 47-70-5020LQ clavicle LT*[facility] [address] [place] [address] XRay Report Signed Patient: Soto Aldana MR#: [id number] 986 : 1955 Acct:[id number] Age/Sex: 66 / M ADM Date: 08/21/22 Loc: [facility] [place] Room: Type: [facility] Attending Dr: Getachew Connolly DO [...] Jeevan Gurrola M.D.08/21/2022 3:00 PM Dictation Location: [place] [address] Transcribed By: [facility] 08/21/22 1500 Dictated By: Jeevan Gurrola DO 08/21/22 1456 Signed By: 08/21/22 1500[facility] CenterXR clavicle LT*[facility] [employer] Other XR clavicle LT*[facility] [employer] Other XR clavicle LT*[address] [facility] [employer] Other XR clavicle LT*[place], [place] [address]Dgafl [employer] Other XR clavicle LT*XRay ReportWye [place] [employer] Other XR clavicle LT*[facility] [employer] Other XR clavicle LT*Patient: Soto Aldana MR#: [id number] [facility] [employer] Other XR clavicle LT*[address] [employer] Other XR clavicle LT*: 1955 Acct:[id number] [employer] Other XR clavicle LT*Age/Sex: 66 / M ADM Date: 08/21/22NortChannelkit Other XR clavicle LT*Loc: [facility] Room: Type: [facility] [employer] Other XR clavicle LT*Attending Dr: Getachew Connolly [facility] [employer] Other XR clavicle LT*Copies to: Getachew Connolly, [facility] [employer] Other XR clavicle LT*Ordering Provider: Getachew Connolly DO [facility] [employer] Other XR clavicle LT*Date of Service: 08/21/22[place] [employer] Other XR clavicle LT* XR/XR clavicle LT*: Closed displaced fracture of shaft of left clavicleWye Mills [employer] Other XR clavicle LT*with [facility] Medical CenterTakWak [employer] Other XR clavicle LT*2 views left clavicleWye Mills [employer] Other XR clavicle LT*COMPARISON: 07/31/2022TakWak [employer] Other XR clavicle LT*HISTORY: Status post ORIF of left clavicle with continued painAllani Other XR clavicle LT*ACUTE FINDINGS: Stable alignment of fracture fragments. Interval healingWye Mills [employer] Other XR clavicle LT*DEGENERATIVE CHANGE: UnremarkableliveMag.ro Other XR clavicle LT*SOFT TISSUE FINDINGS: UnremarkableAllani Other XR clavicle LT*JOINT EFFUSION: NoneliveMag.ro Other XR clavicle LT*POSTOP CHANGES: Redemonstration of superior plate along the distal aspect of the clavicle. LooseningliveMag.ro Other XR clavicle LT*of the mid [facility] HospitalliveMag.ro Other XR clavicle LT*BONE MINERALIZATION: AdequateliveMag.ro Other xr clavicle LT* XR/XR clavicle LT* [employer] Other xr clavicle LT*IMPRESSION: Healing fractures. Similar loosening of mid screw. Otherwise hardware unchanged.[employer] Other xr clavicle LT*Impression dictated by: Jeevan Gurrola M.D.08/21/2022 3:00 [facility] [employer] Other xr clavicle LT*Dictation Location: [id number].ro Other xr clavicle LT*Transcribed By: PWS 08/21/22 [facility] CenterAllani Other xr clavicle LT*Dictated By: Jeevan Gurrola DO 08/21/22 145[employer] Other xr clavicle LT*Signed By:[employer] Other xr clavicle LT*08/21/22 [facility] CenterAllani Other ct shoulder LT wo conon 49-03-3147NG shoulder LT wo [facility] Main Home [address] [place] [address] CT Scan Report Signed Patient: Soto Aldana MR#: [id number] 986 : 1955 Acct:[id number] Age/Sex: 66 / M ADM Date: 08/08/22 Loc: [facility] Room: Type: [facility] Attending Dr: Getachew Connolly DO Copies [...] to the prior plain film examination. Callus formation/heterotopic ossification is seen surrounding the hardware suggestive [...] Piña Jr., D.OPrincess08/08/2022 4:43 PM Dictation Location: [place] [address] Transcribed By: [facility] 08/08/22 1643 Dictated By: Francisco Piña Jr, DO 08/08/22 1638 Signed By: 08/08/22 1643[facility] Medical CenterXR clavicle LT*on 07-31-2022 XR clavicle LT*[facility] Main Home [address] [place] [address] XRay Report Signed Patient: Soto Aldana MR#: [id number] 986 : 1955 Acct:[id number] Age/Sex: 66 / M ADM Date: 07/31/22 Loc: [facility] Room: Type: [facility] Attending Dr: Getachew Connolly DO Copies [...] Rita Klein M.D.07/31/2022 2:51 PM Dictation Location: [place] [address] Transcribed By: [facility] 07/31/22 1451 Dictated By: Rita Klein MD 07/31/22 1449 Signed By: 07/31/22 145NoPomerene HospitalXR clavicle LT*[facility] [employer] Other XR clavicle LT*[facility] [employer] Other XR clavicle LT*[address] [place] [address] [employer] Other XR clavicle LT*[place], [place] [address]Enmfn [employer] Other XR clavicle LT*[facility]Ray [facility] [employer] Other XR clavicle LT*[facility] [employer] Other XR clavicle LT*Patient: Soto Aldana MR#: [id number] [facility] [employer] Other XR clavicle LT*[address] [employer] Other XR clavicle LT*: 1955 Acct:[id number] [employer] Other XR clavicle LT*Age/Sex: 66 / M ADM Date: 07/31/22[place] [employer] Other XR clavicle LT*Loc[place] [facility] Room: Type: [facility] [employer] Other XR clavicle LT*Attending Dr: Getachew Connolly [facility] [employer] Other XR clavicle LT*Copies to: Getachew Connolly [facility] [employer] Other XR clavicle LT*Ordering Provider: Getachew Connolly DO [place] [employer] Other xr clavicle LT*Date of Service: 07/31/22[place] [employer] Other xr clavicle LT* XR/XR clavicle LT*: Closed displaced fracture of shaft of left clavicleWye Mills [employer] Other xr clavicle LT*with rouW[place] [employer] Other xr clavicle LT*LEFT CLAVICLE - 2 viewsWye [place] [employer] Other xr clavicle LT*CLINICAL HISTORY: Follow-up clavicle fractureWye Mills [employer] Other xr clavicle LT*COMPARISON: 07/08/2022[place] [employer] Other xr clavicle LT*AP views with neutral and upward projection were obtained. There is redemonstration of a superiorShriners Hospitals For ChildrenChannelkit Other xr clavicle LT*plate along the distal aspect of the clavicle. The distal clavicle fracture shows no change [facility] [employer] Other xr clavicle LT*alignment. No new fracture or dislocation is identified. The soft tissues are within normal limits.[employer] Other xr clavicle LT* XR/XR clavicle LT* [employer] Other xr clavicle LT*IMPRESSION:[employer] Other xr clavicle LT*STABLE DISTAL CLAVICLE FRACTUREWye Mills [employer] Other xr clavicle LT*Impression dictated by: Rita Klein M.D.07/31/2022 2:51 [facility] [employer] Other xr clavicle LT*Dictation Location: [address] [employer] Other xr clavicle LT*Transcribed By: CHIP 07/31/[address] [place] [address] [employer] Other XR clavicle LT*Dictated By: Rita Klein MD 07/31/22 [address] [employer] Other XR clavicle LT*Signed By:[place] [employer] Other XR clavicle LT*07/31/22 3021TakWak [employer] Other XR clavicle LT*on 93-20-1951IS clavicle LT*[facility] Main Home [address] [place] [address] XRay Report Signed Patient: Soto Aldana MR#: [id number] 986 : 1955 Acct:[id number] Age/Sex: 66 / M ADM Date: 07/08/22 Loc: [facility] Room: Type: [facility] Attending Dr: Getachew Connolly DO Copies to: [...] Shayne Overton M.D.07/08/2022 12:09 PM Dictation Location: [place] [address] Transcribed By: [facility] 07/08/22 1207 Dictated By: Shayne Overton II, MD 07/08/22 1209 Signed By: 07/08/22 120[facility] CenterXR clavicle LT*on 06-20-2022 XR clavicle LT*[facility] [address] [address] XRay Report Signed Patient: Soto Aldana MR#: [id number] 986 : 1955 Acct:[id number] Age/Sex: 66 / M ADM Date: 06/20/22 Loc: [place] Room: Type: [facility] Attending Dr: Getachew Connolly DO Copies to: [...] Rita Klein M.D.06/20/2022 1:14 PM Dictation Location: [place] [address] Transcribed By: [facility] 06/20/22 1314 Dictated By: Rita Klein MD 06/20/22 1311 Signed By: 06/20/[address] [place], [place] [address]XR clavicle LT*[facility] Main [address] [address] XRay Report Signed Patient: Soto Aldana MR#: [id number] 986 : 1955 Acct:[id number] Age/Sex: 66 / M ADM Date: 06/20/22 Loc: [place] Room: Type: [facility] Attending Dr: Getachew Connolly DO Copies to: [...] study. Impression dictated by: Francisco Piña Jr., D.O.06/20/2022 9:58 AM Dictation Location: [place] [address] Transcribed By: [facility] 06/20/22 0958 Dictated By: Francisco Piña Jr, DO 06/20/22 0957 Signed By: 06/20/22 0958NormRegency Hospital ToledoAlanine aminotransferase [Enzymatic activity/volume] in Serum or PlasmaOrdered By: Getachew Connolly on 61-69-5081RRB [Catalytic activity/Vol]8 U/L7-52[facility] Albumin [Mass/volume] in Serum or Plasma by Bromocresol green (BCG) dye binding methoOrdered By: Getachew Connolly on 91-75-6069Xelntlb BCG dye [Mass/Vol]4.0 g/dL 3.5-5.7FSycamore Medical CenterAlkaline phosphatase [Enzymatic activity/volume] in Serum or PlasmaOrdered By: Getachew Connolly on 95-27-7203PIH [Catalytic activity/Vol]108 U/A43-289IhqcynfozPike Community HospitalAspartate aminotransferase [Enzymatic activity/volume] in Serum or PlasmaOrdered By: Getachew Connolly on 40-19-5070MRW [Catalytic activity/Vol]16 U/M71-62QrbmmgazlPike Community HospitalBasophils Auto (Bld) [#/Vol]Ordered By: Getachew Connolly on 81-35-2466Nzchlrpgl (Bld) [#/Vol]0.1 10*3/uL0.0-0.2FSycamore Medical CenterBasophils/100 WBC Auto (Bld)Ordered By: Getachew Connolly on 06-19-2022 Basophils/100 WBC (Bld)0.8 %.Pike Community HospitalBilirubin.total [Mass/volume] in Serum or PlasmaOrdered By: Getachew Connolly on 20-15-3764Idtowrzbv [Mass/Vol]0.8 mg/dL0.3-1.0P[facility] HospitalCMP with reflex to A1Con 46-84-4410Axpuefs [Mass/Vol]4.0 g/dLNormal3.5-5.7FSycamore Medical CenterComment on above:Performed By: #### CBC, CMP wRFX A1C ####[place] [address] [place] [address] [place] Albumin/Globulin [Mass ratio]1.6 {ratio}NormalPike Community Hospital Comment on above:Performed By: #### CBC, CMP wRFX A1C ####[place] [address] [place] [address] USAALP [Catalytic activity/Vol] 108 U/RBorz26-506NyhevvytyPike Community HospitalComment on above:Result Comment: PERFORMED BY: [facility] [address] [place] [address] DRIVER RAFITA WHITEHEAD M.D.Performed By: #### CBC, CMP wRFX A1C ####[place] [address] [place] [address] USAALT [Catalytic activity/Vol]8 U/LNormal7-52P[facility] Community HospitalComment on above:Performed By: #### CBC, CMP wRFX A1C ####[place] [address] [place] [address] USAAnion gap [Moles/Vol]11.8 mmol/LNormal6.0-15.0 [facility] HospitalComment on above:Performed By: #### CBC, CMP wRFX A1C ####[place] [address] [place] [address] USAAST [Catalytic activity/Vol]16 U/SDzrvih91-25JzxpacjkdPike Community HospitalComment on above:Performed By: #### CBC, CMP wRFX A1C ####[facility] [place] [address] USABilirubin [Mass/Vol] 0.8 mg/dLNormal0.3-1.0P[facility] Community HospitalComment on above: Performed By: #### CBC, CMP wRFX A1C ####[facility] [address] [place] [address] USACalcium [Mass/Vol]9.1 mg/dLNormal8.6-10.3 [facility] HospitalComment on above:Performed By: #### CBC, CMP wRFX A1C ####[facility] [address] [place] [address] USAChloride [Moles/Vol]107 mmol/KJtonhw89-962PmzsocjvyPike Community Hospital Comment on above:Performed By: #### CBC, CMP wRFX A1C ####[facility] [address] [place] [address] USACO2 [Moles/Vol]27.1 mmol/L Ragjkr99.0-31.0P[facility] Community HospitalComment on above:Performed By: #### CBC, CMP wRFX A1C ####[address] [address] USACreatinine [Mass/Vol]0.96 mg/dLNormal0.70-1.30 [facility] HospitalComment on above:Performed By: #### CBC, CMP wRFX A1C ####[address] [address] USAGFR/1.73 sq M.predicted MDRD (S/P/Bld) [Vol rate/Area]mL/min/{1.73_m2}Normal [facility] HospitalComment on above:Performed By: #### CBC, CMP wRFX A1C ####[facility] [address] [place] [address] USAGlobulin (S) [Mass/Vol]2.5 g/dLNormalPike Community HospitalComment on above:Performed By: #### CBC, CMP wRFX A1C ####[address] [address] USAGlucose [Mass/Vol]86 mg/wGJlejwk86-682 [facility] HospitalComment on above:Performed By: #### CBC, CMP wRFX A1C ####[address] [address] USAPotassium [Moles/Vol]3.9 mmol/LNormal3.5-5.1FSycamore Medical Center Comment on above:Performed By: #### CBC, CMP wRFX A1C ####[facility] Amy[address] [place] [address] USAProtein [Mass/Vol]6.5 g/dL Normal6.4-8.9[facility] HospitalComment on above:Performed By: #### CBC, CMP wRFX A1C ####[facility] Cws[address] [place] [address] USASodium [Moles/Vol]142 mmol/UPkiiwl653-805WuiwkmrkcPike Community HospitalComment on above:Performed By: #### CBC, CMP wRFX A1C ####[facility] Ayc[address] [place] [address] USAUrea nitrogen [Mass/Vol]12 mg/dLNormal7-25P[facility] HospitalComment on above:Performed By: #### CBC, CMP wRFX A1C ####[facility] Ire[address] [place] [address] USACalcium [Mass/volume] in Serum or PlasmaOrdered By: Getachew Connolly on 92-36-6405Jwesvvd [Mass/Vol]9.1 mg/dL8.6-10.3 [facility] HospitalCarbon dioxide, total [Moles/volume] in Serum or PlasmaOrdered By: Getachew Connolly on 51-63-5183ZX1 [Moles/Vol]27.1 mmol/L 21.0-31.0P[facility] HospitalChloride [Moles/volume] in Serum or PlasmaOrdered By: Getachew Connolly on 88-37-9677Gbfzbgch [Moles/Vol]107 mmol/L 98-107P[facility] HospitalComplete Blood Count Auto Diffon 28-73-7589Tahkjswfe (Bld) [#/Vol]0.1 10*3/uLNormal0.0-0.2FSycamore Medical CenterComment on above:Result Comment: PERFORMED BY: [facility] [address] [id number] PATHOLOGIST DRIVE AWAY DRIVER RAFITA WHITEHEAD M.D.Performed By: #### CBC, CMP wRFX A1C ####[place] [address] USABasophils/100 WBC (Bld)0.8 % Normal.Pike Community HospitalComment on above:Performed By: #### CBC, CMP wRFX A1C ####[place] [address] USAEosinophils (Bld) [#/Vol]0.2 10*3/uLNormal0.0-0.45[facility] HospitalComment on above:Performed By: #### CBC, CMP wRFX A1C ####[place] [address] [place] Eosinophils/100 WBC (Bld)2.0 %Normal.[facility] Community HospitalComment on above:Performed By: #### CBC, CMP wRFX A1C ####[place] [address] USAErythrocyte distribution width (RBC) [Ratio]13.9 %Wqplkx08.0-14.8P[facility] HospitalComment on above: Performed By: #### CBC, CMP wRFX A1C ####[place] [address] USAHematocrit (Bld) [Volume fraction]44.0 %Normal 38.8-50.0P[facility] HospitalComment on above:Performed By: #### CBC, CMP wRFX A1C ####[place] [address] USAHemoglobin (Bld) [Mass/Vol]14.8 g/rHAkotuk63.0-17.0[facility] HospitalComment on above:Performed By: #### CBC, CMP wRFX A1C ####[place] [address] [place] Lymphocytes (Bld) [#/Vol]2.1 10*3/uLNormal1.00-4.8[facility] HospitalComment on above:Performed By: #### CBC, CMP wRFX A1C ####[address] [address] USALymphocytes/100 WBC (Bld)24.4 %Normal.[facility] Community HospitalComment on above:Performed By: #### CBC, CMP wRFX A1C ####[address] [address] [facility] (RBC) [Entitic mass]33.0 moMbdaqo56.5-35.2 [facility] HospitalComment on above:Performed By: #### CBC, CMP wRFX A1C ####[address] [address] [facility] (RBC) [Entitic vol]97.9 eWIkfhnd95.5-101[facility] Comment on above:Performed By: #### CBC, CMP wRFX A1C ####[address] [address] USAMean Corpuscular HGB Conc33.7 g/sCYsgido27.5-35.6FSycamore Medical CenterComment on above:Performed By: #### CBC, CMP wRFX A1C ####[address] [address] USAMonocytes (Bld) [#/Vol]0.7 10*3/uLNormal0.0-0.8 [facility] HospitalComment on above:Performed By: #### CBC, CMP wRFX A1C ####[place] [address] USAMonocytes/100 WBC (Bld)7.7 %Normal.[facility] Community HospitalComment on above:Performed By: #### CBC, CMP wRFX A1C ####[address] [address] USANeutrophils (Bld) [#/Vol]5.6 10*3/uL Normal1.8-7.7FSycamore Medical CenterComment on above:Performed By: #### CBC, CMP wRFX A1C ####[place] [address] [place] [address] USANeutrophils/100 WBC (Bld)65.1 %Normal.[facility] Community HospitalComment on above:Performed By: #### CBC, CMP wRFX A1C ####[place] [address] [place] [address] USANRBC% 0.0 /100{WBC}Normal0-0.5FSycamore Medical CenterComment on above: Performed By: #### CBC, CMP wRFX A1C ####[id number] [place] [address] USAPlatelet mean volume (Bld) [Entitic vol]7.4 fL Normal6.6-10.1FSycamore Medical CenterComment on above:Performed By: #### CBC, CMP wRFX A1C ####[address] [address] USAPlatelets (Bld) [#/Vol]210 10*3/[id number] [facility] HospitalComment on above:Performed By: #### CBC, CMP wRFX A1C ####[address] [address] USARBC (Bld) [#/Vol]4.49 10*6/uLNormal3.90-5.60[facility] Comment on above:Performed By: #### CBC, CMP wRFX A1C ####[address] [address] USAWBC (Bld) [#/Vol]8.6 10*3/uL Normal4.1-10.5FSycamore Medical CenterComment on above:Performed By: #### CBC, CMP wRFX A1C ####[address] [address] USACreatinine [Mass/volume] in Serum or PlasmaOrdered By: Getachew Connolly on 53-26-3372Yvihsuzvzi [Mass/Vol]0.96 mg/dL0.70-1.30[facility] HospitalECG 12 lead ECGon 90-19-6192XBD 12 lead ECGSCCI [place] [address] Electrocardiograph Report Signed Patient: Soto Aldana MR#: [id number] 986 : 1955 Acct:[id number] Age/Sex: 66 / M ADM Date: 06/19/22 Loc: Room: Type: [facility] Attending Dr: Getachew Connolly DO Ordering Provider: [...] MUS Signed By Grant Lauren DO 06/19 1246NormRegency Hospital ToledoEosinophils Auto (Bld) [#/Vol] Ordered By: Getachew Connolly on 27-00-8329Oecvqvihdor (Bld) [#/Vol]0.2 10*3/uL 0.0-0.45[facility] HospitalEosinophils/100 WBC Auto (Bld)Ordered By: Getachew Connolly on 08-37-6907Dbxsnyixfhc/100 WBC (Bld)2.0 %.[facility] HospitalErythrocyte distribution width Auto (RBC) [Ratio]Ordered By: Getachew Connolly on 26-59-8935Amsnuucrulp distribution width (RBC) [Ratio]13.9 % 12.0-14.8[facility] HospitalGlobulin Calc (S) [Mass/Vol]Ordered By: Getachew Connolly on 70-93-7124Xhgyizqw (S) [Mass/Vol]2.5 g/dLPike Community HospitalGlucose [Mass/volume] in Serum or PlasmaOrdered By: Getachew Connolly on 13-43-6093Xzcrhes [Mass/Vol]86 mg/rX59-444UifaksyfzP[facility] Hospital Hematocrit Auto (Bld) [Volume fraction]Ordered By: Getachew Connolly on 06-19-2022 Hematocrit (Bld) [Volume fraction]44.0 %38.8-50.0[facility] HospitalHemoglobin [Mass/volume] in BloodOrdered By: Getachew Connolly on 06-19-2022 Hemoglobin (Bld) [Mass/Vol]14.8 g/dL13.0-17.0[facility] Laboratory - Chemistry and Chemistry - challengeOrdered By: Getachew Connolly on 64-44-3395JHV/1.73 sq M.predicted MDRD (S/P/Bld) [Vol rate/Area]mL/min/{1.73_m2} [facility] HospitalLeukocytes [#/volume] corrected for nucleated erythrocytes in Blood by Automated counOrdered By: Getachew Connolly on 06-19-2022 WBC corrected for nucl RBC Auto (Bld) [#/Vol]8.6 10*3/uL4.1-10.5FSycamore Medical CenterLymphocytes Auto (Bld) [#/Vol]Ordered By: Getachew Connolly on 59-01-9782Uymaoskizlz (Bld) [#/Vol]2.1 10*3/uL1.00-4.8[facility] HospitalLymphocytes/100 WBC Auto (Bld)Ordered By: Getachew Connolly on 63-50-0478Hpxmaxuvxha/100 WBC (Bld)24.4 %.[facility] HospitalMCH Auto (RBC) [Entitic mass]Ordered By: Getachew Connolly on 56-97-3515EMH (RBC) [Entitic mass]33.0 pg27.5-35.2FSycamore Medical CenterMCHC Auto (RBC) [Mass/Vol]Ordered By: Getachew Connolly on 85-85-9764RMOG (RBC) [Mass/Vol]33.7 g/dL 32.5-35.6FSycamore Medical CenterMCV Auto (RBC) [Entitic vol]Ordered By: Getachew Connolly on 73-02-8358BOT (RBC) [Entitic vol]97.9 fL83.5-101[facility] HospitalMonocytes Auto (Bld) [#/Vol]Ordered By: Getachew Connolly on 63-19-5683Psddytiyu (Bld) [#/Vol]0.7 10*3/uL0.0-0.8[facility] HospitalMonocytes/100 WBC Auto (Bld)Ordered By: Getachew Connolly on 06-19-2022 Monocytes/100 WBC (Bld)7.7 %.[facility] HospitalNeutrophils Auto (Bld) [#/Vol]Ordered By: Getachew Connolly on 70-13-8261Fkbbsgtyoul (Bld) [#/Vol]5.6 10*3/uL1.8-7.7FSycamore Medical CenterNeutrophils/100 WBC Auto (Bld) Ordered By: Getachew Connolly on 02-30-1879Hmumhpskpqs/100 WBC (Bld)65.1 %.[facility] HospitalNo Panel InformationOrdered By: Getachew Connolly on 18-17-3274Fsfirows Creatinine Clearance (ChemN/AFSycamore Medical CenterNucleated erythrocytes [Presence] in Blood by Automated countOrdered By: Getachew Connolly on 79-10-7657Yipygcezz RBC Auto Ql (Bld)0.0 /100{WBC}0-0.5 [facility] HospitalPlatelet mean volume Auto (Bld) [Entitic vol] Ordered By: Getachew Connolly on 47-01-0273Wmyjcdkz mean volume (Bld) [Entitic vol] 7.4 fL6.6-10.1FSycamore Medical CenterPlatelets Auto (Bld) [#/Vol] Ordered By: Getachew Connolly on 11-57-7526Kjuywnsgn (Bld) [#/Vol]210 10*3/hI710-999 [facility] HospitalPotassium [Moles/volume] in Serum or Plasma Ordered By: Getachew Connolly on 47-90-6709Goxnawiiq [Moles/Vol]3.9 mmol/L3.5-5.1 [facility] HospitalProtein [Mass/volume] in Serum or PlasmaOrdered By: Getachew Connolly on 44-97-1269Mohjjnm [Mass/Vol]6.5 g/dL6.4-8.9[facility] HospitalRBC Auto (Bld) [#/Vol]Ordered By: Getachew Connolly on 66-89-3762UDO (Bld) [#/Vol]4.49 10*6/uL3.90-5.60[facility] Hospitalerum or plasma albumin/globulin mass ratioOrdered By: Getachew Connolly on 55-45-0921Wpxhrag/Globulin [Mass ratio]1.6 {ratio}[facility] Hospitalerum or plasma anion gap determinationOrdered By: Getachew Connolly on 58-87-1122Kcweh gap [Moles/Vol]11.8 mmol/L6.0-15.0[facility] Hospitalodium [Moles/volume] in Serum or PlasmaOrdered By: Getachew Connolly on 50-40-9360Vwaxxn [Moles/Vol]142 mmol/E828-243ByqngsqeeP[facility] Hospital Urea nitrogen [Mass/volume] in Serum or PlasmaOrdered By: Getachew Connolly on 86-07-2273Eyfk nitrogen [Mass/Vol]12 mg/dL7-25[facility] WBC Auto (Bld) [#/Vol]Ordered By: Getachew Connolly on 18-40-7925YEP (Bld) [#/Vol] 8.6 10*3/uL4.1-10.5FSycamore Medical CenterXR clavicle LT*on 06-19-2022 XR clavicle LT*[facility] [employer] Other XR clavicle LT*[facility] [employer] Other XR clavicle LT*[address] [facility] [employer] Other XR clavicle LT*[place] [address] [employer] Other XR clavicle LT*XRay [facility] [employer] Other XR clavicle LT*[place] [employer] Other XR clavicle LT*Patient: Soto Aldana MR#: [id number] [facility] [employer] Other XR clavicle LT*[address] [employer] Other XR clavicle LT*: 1955 Acct:[id number] [employer] Other XR clavicle LT*Age/Sex: 66 / M ADM Date: 06/19/22[place] [employer] Other XR clavicle LT*[place] [facility] [place]: Type: [facility] [employer] Other XR clavicle LT*Attending Dr: Getachew Connolly [facility] [employer] Other XR clavicle LT*Copies to: Getachew Connolly, [facility] [employer] Other XR clavicle LT*Ordering Provider: Getachew Connolly, [employer] Other XR clavicle LT*Date of Service: 06/19/22[place] [employer] Other XR clavicle LT* XR/XR clavicle LT*: Pain of left clavicleWye Mills [employer] Other XR clavicle LT*LEFT CLAVICLE - 2 viewsW[place] [employer] Other XR clavicle LT*CLINICAL HISTORY: Follow-up left distal clavicular fractureWye Mills [employer] Other XR clavicle LT*COMPARISON: Outside left shoulder series 05/17/2022[place] [employer] Other XR clavicle LT*FINDINGS:[employer] Other XR clavicle LT*Distal left clavicular fracture demonstrates interval callus formation suggestive of healingWye Mills [employer] Other XR clavicle LT*response. No significant change in alignment.[employer] Other XR clavicle LT* XR/XR clavicle LT* [place] [employer] Other XR clavicle LT*IMPRESSION:[employer] Other XR clavicle LT*HEALING DISTAL LEFT CLAVICULAR FRACTURE.[employer] Other XR clavicle LT*Impression dictated by: Francisco Piña Jr., DPrincessOPrincess06/19/2022 11:23 [facility] [employer] Other XR clavicle LT*Dictation Location: [id number] [employer] Other XR clavicle LT*Transcribed By: PWS 06/19/[address] [place] [address] [employer] Other XR clavicle LT*Dictated By: Francisco Piña Jr, DO 06/19/[address] [place] [address] [employer] Other XR clavicle LT*Signed By:[employer] Other XR clavicle LT*06/19/22 [email or web address] Other xr clavicle LT*[facility] [address] [place] [address] XRay Report Signed Patient: Soto Aldana MR#: [id number] 986 : 1955 Acct:[id number] Age/Sex: 66 / M ADM Date: 06/19/22 Loc[place] [facility] [place] Room: Type: [facility] Attending Dr: Getachew Connolly DO Copies [...] Piña Jr., D.O.06/19/2022 11:23 AM Dictation Location: [place] [address] Transcribed By: [facility] 06/19/22 1123 Dictated By: Francisco Piña Jr, DO 06/19/22 1052 Signed By: 06/19/22 1123NoP[facility] Vital Signs Date TimeVital SignValuePerforming MapnrgeiyTtxczeew42-98-1946 12:10-0400Body hxjror841.72 cmRebdigna Geller PATIENT INTAKE REPRESENTATIVE Work Phone: [phone]10-15-2025 12:10-0400 Diastolic blood mm[Hg]Nessadigna Geller PATIENT INTAKE REPRESENTATIVE Work Phone: [phone] [place], [place] [address]10-15-2025 12:10-0400 Heart rate79 /minRebecgraciela Geller PATIENT INTAKE REPRESENTATIVE Work Phone: [phone]10-15-2025 12:10-0400 SaO2% (BldA) [Mass fraction]94 %Nessa Duyen PATIENT INTAKE REPRESENTATIVE Work Phone: [phone]10-15-2025 12:10-0400 Systolic blood yaeizqww143 mm[Hg]Nessa Duyen PATIENT INTAKE REPRESENTATIVE Work Phone: [phone]09-21-2023 09:32-0400 Diastolic blood mhhfuozp84 mm[Hg]PATIENT INTAKE REPRESENTATIVE Nessa Geller Work Phone: [phone]09-21-2023 09:32-0400 Heart rate79 /minAPRN Nessa Geller Work Phone: [phone]09-21-2023 09:32-0400 Respiratory rate16 /minAPRN Nessa eGller Work Phone: [phone]09-21-2023 09:32-0400 SaO2% (BldA) [Mass fraction]94 %PATIENT INTAKE REPRESENTATIVE Nessa Geller Work Phone: [phone]09-21-2023 09:32-0400 Systolic blood ryuvldkh167 mm[Hg]PATIENT INTAKE REPRESENTATIVETita Geller Work Phone: [phone]-[facility]09-21-2023 09:02-0400 Body hppyiqxgoqo98 [degF]MARINA Geller Work Phone: [phone] [place], [place] 4617209-21-2023 08:32-0400 Inhaled oxygen flow rate8 L/minAPRTita Geller Work Phone: [phone] [place], [place] 4617209-21-2023 07:05-0400 Body muzkbq207.72 cmAPRN Nessa Geller Work Phone: [phone] [place], [place] 4617209-21-2023 07:05-0400 Body mass index (BMI) [Ratio]22.1 kg/m2MARINA Geller Work Phone: [phone]-[facility]09-21-2023 07:05-0400 Body xivdvq38.2 kgAPRTita Geller Work Phone: [phone] [place], [place] 4617209-13-2023 10:00-0400 Body lustjq524.72 cmJustin Shane Other [facility] [employer] Other 09-13-2023 10:00-0400Body mass index (BMI) [Ratio] 21.74 kg/f4Uhaemd Shane Other [facility] [employer] Other 09-13-2023 10:00-0400Body foohbg96.86 kgJustin Shane Other [facility] [employer] Other 07-12-2023 10:45-0400Body jizigx033.72 cmJustin Shane Other [facility] [employer] Other 07-12-2023 10:45-0400Body mass index (BMI) [Ratio] 22.96 kg/b1Dvqdhi Shane Other [facility] [employer] Other 07-12-2023 10:45-0400Body .49 kgJumauricio Connolly Other [facility] [employer] Other 03-30-2023 11:07-0400Diastolic blood moopspov79 mm[Hg] PATIENT INTAKE REPRESENTATIVE Nessa Duyen Work Phone: [facility]03-30-2023 11:07-0400 Heart rate80 /minAPRN Nessa Duyen Work Phone: [phone] [place], [place] [address]203-30-2023 11:07-0400 Respiratory rate18 /minAPRN Nessa Duyen Work Phone: [phone]-[facility]03-30-2023 11:07-0400 SaO2% (BldA) [Mass fraction]93 %PATIENT INTAKE REPRESENTATIVE Nessa Duyen Work Phone: [phone]-[facility]03-30-2023 11:07-0400 Systolic blood butsziwl891 mm[Hg]PATIENT INTAKE REPRESENTATIVE Nessa Duyen Work Phone: [facility]03-30-2023 10:22-0400 Body hrsbjeietqi73 [degF]MARINA Bishop Duyen Work Phone: [phone]-[facility]03-30-2023 09:47-0400 Inhaled oxygen flow rate10 L/minAPRTita Nessa Duyen Work Phone: [phone]-[facility]03-30-2023 07:05-0400 Body xecupc887.72 cmAPRN Nessa Duyen Work Phone: [phone]-[facility]03-30-2023 07:05-0400 Body mass index (BMI) [Ratio]23.1 kg/m2APRTita Nessa Duyen Work Phone: [facility]03-30-2023 07:05-0400 Body kgAPRN Nessagraciela Geller Work Phone: [facility]03-29-2023 09:30-0400 Body uytxcq489.72 cmJustjavon Connolly Other [employer] Other 03-29-2023 09:30-0400Body mass index (BMI) [Ratio]22.2 kg/m1Mxmklxjavon Connolly Other [facility] [employer] Other 03-29-2023 09:30-0400Body xrlieo53.23 kgJustjavon Connolly Other [employer] Other Encounters Encounter DateEncounter TypeCare ProviderFacilityStart: 01-13-2025 End: 05-73-6132cckaoykhvhIUSGBX M MENDOZAFacility:FTMCStart: 01-05-2025 End: 84-06-8403cktejchcreZsmoelt Nelson APRN Work Phone: [facility] Work Phone: Start: 01-05-2025 End: 33-82-2697Zltqdcs encounter procedureNatalia Roldan [facility] Work Phone: Start: 12-09-2023 End: 42-26-9709Bmzvgcz encounter procedureSJUSTIN ASCENCIO [facility] Start: 01-01-2023 End: 43-55-3264jbmsgeibcaQzxekn Kelley Other [facility] [employer] Other Start: 85-58-4196Ekeusk follow up visit related to original pxKatherynstjavon [facility]opedicsStart: 12-12-2022 End: 96-05-9034jnvtlnjtgaDueulk A KelleyFacility:[facility] Hospitaltart: 12-12-2022 End: 03-43-7950Gawqibfbo to same day surgery centerAPRN Nessa Geller Work Phone: [facility] CampusStart: 12-12-2022 End: 27-76-0923hmeahqcgymCBEN Nessa Duyen Work Phone: [facility] Work Phone: Start: 12-11-2022 End: 16-92-9541pgjkgpyrpdTxnqzii NelsonFacility:[facility] Hospitaltart: 12-11-2022 End: 72-43-9873Yocitbh encounter procedureMARINA Geller Work Phone: [facility]-[address] Work Phone: Start: 12-06-2022 End: 39-07-1165wxabpuxdfbFxqrfqt NelsonFacility:[facility] Hospitaltart: 12-06-2022 End: 46-41-4541zbzuwphgvfWSQN Rebecca Nelson Work Phone: [facility] Work Phone: Start: 12-06-2022 End: 81-69-3947Zqiznpz encounter procedureMARINA Abernathyecca Duyen Work Phone: [phone]-[facility]-Pre-Surgical Testing Work Phone: Start: 26-40-7854Rmgmgmhqf for other preprocedural examinationJustin Jennifer Miranda OrthopedicsStart: 05-11-6350Vsmthk outpatient visit 25 minutesJustin Jennifer [facility] OrthopedicsStart: 12-04-2022 End: 89-13-1096pngyuzimzdPUOI Rebecca Nelson Work Phone: [facility] Work Phone: Start: 12-04-2022 End: 29-89-2091Bflpfeo encounter procedureMARINA Nessa Duyen Work Phone: [facility] [place] [facility] Start: 66-16-0145Qgisrm follow up visit related to original pxKatherynstin VinicioG [facility] OrthopedicsStart: 10-02-2022 End: 51-08-1879afopfoqhmrAmmznrf NelsonFacility:[facility] Hospitaltart: 10-02-2022 End: 05-08-6836cbbefcdczuOXGD Rebecca Nelson Work Phone: [facility] Work Phone: Start: 10-02-2022 End: 95-74-9613Kyxmlue encounter procedureAPRTita Geller Work Phone: [facility] Start: 60-99-7046Lsjtws outpatient visit 25 minutesJustin VinicioG [facility]icsStart: 08-21-2022 End: 53-03-0141hauekwtnoqWvvqood NelsonFacility:[facility] Hospitaltart: 08-21-2022 End: 99-85-6610rbnginpefyPEKZ Rebecca Nelson Work Phone: [facility] Work Phone: Start: 08-21-2022 End: 04-35-2626Nsuldyx encounter procedureAPRTita Geller Work Phone: [facility] Start: 08-08-2022 End: 53-91-2912kjavdocrziPqxnzya NelsonFacility:[facility] Hospitaltart: 08-08-2022 End: 78-68-5966Ygbjdgn encounter procedureAPRTita Geller Work Phone: [facility]-[address] Work Phone: Start: 19-00-0210Ekjfrn follow up visit related to original pxKatherynstin VinicioG [facility]icsStart: 07-31-2022 End: 72-71-1610bfcyugfafaFwgrbur NelsonFacility:[facility] Hospitaltart: 07-31-2022 End: 53-14-8180ordnantbncYDSZ Rebecca Nelson Work Phone: [facility] Work Phone: Start: 07-31-2022 End: 58-70-8194Eizthxo encounter procedureMARINA Geller Work Phone: [facility] [place] [facility] Start: 07-08-2022 End: 63-84-6951erbkqfghuuJbllyp A ShaneFacility:[facility] Hospitaltart: 07-08-2022 End: 14-23-6277avrvbktpuxHCKO Rebecca Nelson Work Phone: [facility] Work Phone: Start: 07-08-2022 End: 66-81-6973Fhushos encounter procedureMARINA Geller Work Phone: [facility] [place] [facility] Start: 06-26-2022 End: 57-06-4137suyruludbxDdiafm Shane Other [employer] Other Start: 86-77-6117Ztqxzpjrn encounterJustin VinicioG [facility]icsStart: 06-20-2022 End: 71-69-0709rtyokeynmaVbvepd A ShaneFacility:[facility] Hospitaltart: 06-20-2022 End: 30-99-4105Adyagabwl to same day surgery centerMARINA Bishop Duyen Work Phone: [facility] Main CampusStart: 06-20-2022 End: 95-13-7365xheenruaavETWP Nessa Duyen Work Phone: [facility] Work Phone: Start: 42-78-7770Ahouih outpatient new 45 minutes Getachew VinicioG [facility]opedicsStart: 06-19-2022 End: 41-48-6994sbglyeviknLewrpm A [employer] Data Other Start: 06-19-2022 End: 03-86-3678Blfzmaq encounter procedureAPRTita Geller Work Phone: [facility] Work Phone: Start: 06-19-2022 End: 46-67-8003Mbbsylg encounter procedureAPRTita Geller Work Phone: [facility] Start: 05-17-2022 End: 79-71-4117potxwzdzkhQG DOCTOR MISCFacility:H1 Procedures DateProcedureProcedure DetailPerforming ClinicianStart: 45-48-9230Rapz reduction of fracture of clavicle with internal fixationAPRN Nessa Geller Work Phone: Start: 56-20-0962KO of lungsAPRN Nessa Geller Work Phone: Start: 45-07-1626Weyoi X-ray of left clavicleAPRN Nessa Geller Work Phone: Start: 81-37-4414Dibst X-ray of left clavicleAPRN Nessa Geller Work Phone: Start: 65-86-3296Zwhcf X-ray of left clavicleAPRN Nessa Geller Work Phone: Start: 56-64-6064OJ of left shoulderAPRN Nessa Geller Work Phone: Start: 89-98-8319Occez X-ray of left clavicleAPRN Nessa Geller Work Phone: Start: 28-00-6306Vvnla X-ray of left clavicleAPRN Nessa Geller Work Phone: Start: 06-20-2022 End: 17-08-8068Mnmjw X-ray of left clavicleAPRN Nessa Geller Work Phone: Start: 04-91-9450Qezx reduction of fracture of clavicle with internal fixationMARINA Geller Work Phone: Start: 59-73-9926Inlwr X-ray of left clavicleAPRTita Geller Work Phone: Plan of Treatment DateCare ActivityDetailAuthorStart: 12-12-2022 End: 99-32-4464EmwlcbnroLancaster Municipal Hospitaltart: 71-99-0792Vxrta X-ray of left clavicleXR clavicle LT*[facility] Hospitaltart: 90-10-1082CB Clavicle - left ViewsLancaster Municipal Hospitaltart: 06-20-2022 End: 92-61-9335KlnbpaifzPike Community HospitalPatient referralAcmc Healthcare System Work Phone: Immunizations Immunization DateImmunizationNotesCare FmekxpukKricdehc26-95-1324ALPEM-75 Kayla Comirstacey ([employer])PATIENT INTAKE REPRESENTATIVETita Geller Work Phone: [facility] Payers DatePayer CategoryPayerPolicy [id number] 2..[id number] 2.1.3[id number] 2..1.165734.3.579.2.531 [id number] 2..1.5[id number] 2..1.8[id number] 2..1.866045.3.579.2.531 [id number] 2..1.8[id number] 2.16.840.1.8[id number] 2.16.840.1.500279.3.579.2.531 [id number] 2.16.840.1.3[id number] 2.16.840.1.7[id number] 2.16.840.1.894373.3.579.2.531 [id number] 2.16.840.1.5[id number] 2.16.840.1.312764.3.579.2.531 Social History DateTypeDetailFacilitySex Assigned At St[facility] Hospitalt[facility]: 06-20-2022 End: 92-43-5483Dzqtaag smoking status NHISSmoker (finding)[facility] Hospitaltart: 52-12-6291Pxu Assigned At [facility] HospitalTobacco smoking statusNo Smoking Status [facility] Start: 09-32-7283Zrbfslc smoking status NHISSmokes tobacco daily (finding)[facility] HospitalexMale (finding) [facility] Medical Equipment Procedure CodeEquipment CodeEquipment Original TextEquipment IdentifierDatesORIF fracture of clavicleCANCELLOUS 7.5 CRUSHEDFDAStart: 02-03-9896ZDXR fracture of clavicleOrthopaedic fixation plate, non-bioabsorbable, non-sterile ()[id number] FDAStart: 54-37-3604UNOR fracture of clavicleOrthopaedic bone screw, non-bioabsorbable, non-sterile()[id number] FDAStart: 06-20-2022 ORIF fracture of clavicleOrthopaedic bone screw, non-bioabsorbable, non-sterile ()[id number] FDAStart: 37-25-0747IMCK fracture of clavicleOrthopaedic bone screw, non-bioabsorbable, non-sterile()[id number] FDAStart: 06-20-2022 ORIF fracture of clavicleOrthopaedic bone screw, non-bioabsorbable, non-sterile ()[id number] FDAStart: 94-09-8188HZKA fracture of clavicleOrthopaedic bone screw, non-bioabsorbable, non-sterile()[id number] FDAStart: 06-20-2022 ORIF fracture of clavicleCANCELLOUS 7.5 CRUSHEDFDAStart: 87-82-9110OKRG fracture of clavicleCANCELLOUS 7.5 CRUSHEDFDAStart: 01-31-5543ZQBN fracture of clavicle CANCELLOUS 7.5 CRUSHEDFDAStart: 26-39-9876UUTC fracture of clavicleCANCELLOUS 7.5 CRUSHEDFDAStart: 92-29-2997KPOA fracture of clavicleCANCELLOUS 7.5 CRUSHED FDAStart: 22-94-1214FNWB fracture of clavicleCANCELLOUS 7.5 CRUSHEDFDAStart: 45-93-7736BNCC fracture of clavicleCANCELLOUS 7.5 CRUSHEDFDAStart: 06-20-2022 Goals DatePatient GoalDesired Activity/State Clinical Notes 05-17-2022 to 11-25-2023 Note Date & DdzgKhcvLzakigbh86-68-8528 Evaluation + Plan note Future Scheduled Tests Radiology* CT Chest, Low Dose Screening 11/25/23 [facility] 10-11-2023 Evaluation note* Encounter Date Diagnosis Assessment Notes Treatment Notes Treatment Clinical Notes Dec, Closed displaced fra cture of shaft of left clavicle with routine [...] May progress activity as tolerated. Call with questions/concerns. Dec,Other specified postprocedural states (ICD-10 - Z98.890) [facility] Other 09-13-2023 Evaluation note* Encounter Date Diagnosis Assessment Notes Treatment Notes Treatment Clinical Notes Nov, Closed displaced fra cture of shaft of left clavicle with routine healing, subsequent encounter (ICD-10 - S42.022D) Soto is here now over 3 months s/p left distal clavicle ORIF. Physical exam and x-rays have been reviewed at bedside. Physical exam is overall benign he does have good range of motion of the leftshoulder. Continues to have pain over the plate as well as AC joint. He would like to discuss plateremoval which I think is reasonable at this time. Soto presents with painful hardware left clavicle. At this juncture we have discussed the findings and diagnosis as well as reviewed appropriate imaging and performed interpretation of testing. Surgical intervention is recommended. Prior medical notes and history have been reviewed. Surgical versus non- operative management have been discussed in detail and non-operative management was given as an option. The risks of surgical intervention were given. Pre- operative optimization will be done prior to surgical procedure to limit rex- operative risks. I have discussed the planned procedure, [...] poor healing. 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 I have [...] was in understanding and wishes to proceed. Nov,Other specified postprocedural states (ICD-10 - Z98.890) Nov,re-op exam (ICD-10 - Z01.818) [facility] Other 07-12-2023 Evaluation note* Encounter Date Diagnosis Assessment Notes Treatment Notes Treatment Clinical Notes Sep, Closed displaced fra cture of shaft of left clavicle with routine [...] will follow up in 2 months time. Sep,Other specified postprocedural states (ICD-10 - Z98.890) [facility] Other 05-31-2023 Evaluation note* Encounter Date Diagnosis Assessment Notes Treatment Notes Treatment Clinical Notes July, Closed displaced fra cture of shaft of left clavicle with routine [...] Sent in Meloxicam with instructions on use. July,Other specified postprocedural states (ICD-10 - Z98.890) [facility] Other 05-10-2023 Evaluation note* Encounter Date Diagnosis Assessment Notes Treatment Notes Treatment Clinical Notes July, Closed displaced fra cture of shaft of left clavicle with routine healing, subsequent encounter (ICD-10 - S42.022D) Soto is here now 6 weeks s/p left distal clavicle ORIF. He is a referral from the [place] and over amonth out from his injury went over the specifics. Physical exam and x-rays have been reviewed at bedside. This time he can advance range of motion as tolerated while maintaining nonweightbearing dueto the broken screw. I will order CT scan of the shoulder to evaluate clavicle and see healing progress. Discussed hardware removal Radiographs reviewed with patient today. Discussed with patient there are some changes noted we will obtain a CT scan. Patient given CT information sheet. July,Other specified postprocedural states (ICD-10 - Z98.890) [facility] Other 04-05-2023 Evaluation note* Encounter Date Diagnosis Assessment Notes Treatment Notes Treatment Clinical Notes Jun, Closed displaced fra cture of shaft of left clavicle, initial encounter (ICD-10 - S42.022A) [facility] Other 03-29-2023 Evaluation note* Encounter Date Diagnosis Assessment Notes Treatment Notes Treatment Clinical Notes May, Closed displaced fra cture of shaft of left clavicle, initial encounter (ICD-10 - S42.022A) Soto presents with near a type V left distal clavicle fracture. At this juncture we have discussed the findings and diagnosis as well as personally reviewed appropriate imaging and performed interpretation of related testing and examination with the patient in office today. Prior medical notes from [place] and [facility] and history have been reviewed. At this time I would recommend ORIF. At this juncture we have discussed the findings and diagnosis as well as reviewed appropriate imaging and performed interpretation of testing. Surgical intervention is recommended. Prior medical notes and history have been reviewed. Surgical versus non-operative management have been discussed in detail and non- operative management was given as an option. The [...] wound closure problems and infection were discussed. Rex- operative risks including infection, bleeding, wound healing problems, [...] poor healing. 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 I have [...] understands these risks and wishes to proceed. May,Smoker (ICD-10 - F17.200)Patient has a tobacco use disorder we have discussed this today. I have advised complete cessation.We have discussed complications caused by tobacco use [...] any surgical interventions. Tobacco cessation program at [facility] has been recommended and offered as well as the national Quitline 5-741-GNVA-NOW. We have discussed pharmacologic treatment including nicotine replacement therapy which can lead to a positive nicotine test as well as nicotine free medications both of which will needto be managed by their PCP. We have provided handout for the [facility] Tobacco Cessation Program. This discussion was limited to 5 minutes. May,OtherSee orders for this visit as documented in the electronic medical record. [facility] Other 03-01-2023 History general Narrative - Reported* Type Description Date Medical History hypertension Medical HistoryhyperlipidemiaSurgical HistorytonsillectomySurgical History appendectomySurgical HistoryORIF and bone graft05/2022 [facility] Other 03-01-2023 History general Narrative - Reported* Type Description Date Medical History hypertension Medical HistoryhyperlipidemiaSurgical HistorytonsillectomySurgical History appendectomySurgical HistoryORIF and bone graft left clavicle05/2022 [facility] Other 03-01-2023 History general Narrative - Reported* Type Description Date Medical History hypertension Medical HistoryhyperlipidemiaSurgical HistorytonsillectomySurgical History appendectomySurgical HistoryORIF and bone graft left clavicle05/2022Surgical Historyremoval of painful hardware from left clavicle06/20/22 [facility] Other 02-24-2023 NotePROCEDURE: XR SHOULDER LT 2V [...] Electronically authenticated by: JULIA GAN Date: 2022-05-17 12:38[facility] noteNo assessment information availableAcmc Healthcare System Work Phone: History general Narrative - Reported* Type Description Date Medical History hypertension Medical HistoryhyperlipidemiaSurgical HistorytonsillectomySurgical History appendectomy [facility] Other Hospital course Narrative No data available for this section [facility] Discharge instructions Additional Instructions Dr. Connolly's [...] medications as prescribed. You may use Tylenol/NSAIDs [id number] as indicated on the bottle. Follow-up in Dr. Connolly's office in 3 weeks for x-rays and wound check. Call office with any questions or concerns. Dr. Getachew Connolly [facility] [address] [place] [address] XzxyngyslA[facility] System Work Phone: Hospital Discharge instructions No data available for this section [facility] Progress note No data available for this section [facility] Reason for referral (narrative)No reason for referral information availableKing'S [facility] [place] Work Phone: Summary Purpose Family History No Family History Records Found Relationship Condition Age at Onset Recorded Date/T nilsa father Myocardial infarction Unknown Not SpecifiedHypothyroidismUnknownbrotherHypertensionUnknown Relationship Condition Age at Onset Recorded Date/T nilsa father Myocardial infarction Unknown motherHypothyroidismUnknownbrotherHypertensionUnknownfatherDeceasedUnknown Advance Directives No Advanced Directives Records Found Advance Directive Response Recorded Date/ Time Advance Directives No June 19 023 9:42am Advance Directive Response Recorded Date/ Time Advance Directives No March 31st, 2 023 2:04pm Chief Complaint and Reason for [...] section and content) DATE CREATED AUTHOR 05/24/2022 [facility] DATE CREATED AUTHOR AUTHOR'S ORGANIZ ATION 12/23/2022 [facility] DATE CREATED AUTHOR AUTHOR'S ORGANIZ ATION 01/22/2025 [facility] REASON FOR VISIT (unrecogniz ed section and content) VA CONSULT LT CLAVICLE FX X2 MOS PT TO BRING DISCPAIN MEDSRecheck Left ClavicleCT ResultsRecheck Left ClavicleRecheck Left ClavicleRecheck Left Clavicle Care Teams (unrecognized sec tion and content) Team Status: Active Member Role Status Dates Nessa Geller APRN DISTRICT SALES COORDINATOR-C Primary Care Provider Activ e Team Status: Inactive Member Role Status Dates Getachew Connolly DO Attending Provider Active Team Status: Inactive Member Role Status Dates Getachew Connolly DO Attending Provider Active Nessa Geller APRN NP-CPrimary Care ProviderActive Team Status: Inactive Member Role Status Dates Nessa Geller APRN DISTRICT SALES COORDINATOR-C Primary Care Provider Activ e Roberta Arias ProviderActive Team Status: Inactive Member Role Status Dates Nessa Geller APRN DISTRICT SALES COORDINATOR-C Primary Care Provider, Atte nding Provider Active Team Status: Inactive Member Role Status Dates Nessa Geller APRN DISTRICT SALES COORDINATOR-C Primary Care Provider Activ e Start: January 05, 2025 End: January 05, 2025Roberta Arrieta ProviderActiveStart: January 05, 2025 End: January 05, 2025 Goals (unrecognized section and content) Goals may [...] BE BASED ON THE PRIMARY CLINICAL RECORDS. [facility] [employer] [place] [facility]. provides no warranty or guarantee of the accuracy or completeness of information in this document.
--- NOTE | 2025-02-15 08:08 | US_ITS ---
The [address] [address] Patient Name: JENNY RIVERA MRN: [id number] date: 1955 Sex: M Assigned Patient Location: [place] Current Patient Location: Accession/Order Number: [id number] Exam Date: 02/15/2025 08:09 Report Date: 02/15/2025 09:09 At the request of: NESSA GELLER Procedure: US abdominal aortic aneurysm ULTRASOUND OF THE ABDOMINAL AORTA CLINICAL DATA: Screening in patient with history of tobacco use and hypertension. COMPARISON: 05/20/2023 Real-time ultrasound evaluation of the abdominal aorta was performed. There is some atherosclerotic plaque. No aortic aneurysm is seen. At the proximal aorta, the diameter measures 2.5 cm AP by 2.1 cm transverse. At the mid aorta, the diameter measures approximately 1.8 cm AP by 2.4 cm transverse. Distally, the aorta measures 1.7 cm AP by 2.3 cm transverse. The bifurcation is visualized and the iliac arteries are normal caliber. No periaortic fluid is identified. US/US abdominal aortic aneurysm IMPRESSION: NO AORTIC ANEURYSM. Impression dictated by: Rita Klein M.D. 02/15/2025 9:09 AM Dictation Location: [place] [address] Electronically authenticated by: [id number] Y Date: 02/15/2025 09:09
== END 2025-02-15 08:03 | disposition home or self-care (01) ==
LOC: US 08:02
DX: I71.9 Aortic aneurysm of unspecified site, without rupture (principal)
CPT/HCPCS: 76775